=== PATIENT | female | born 1960 | race Caucasian/White ===

== ENCOUNTER 2017-01-09 21:28 | Observation (INO) | payer OTHER ==
--- NOTE | 2017-01-09 21:32 | DR.GENAD ---
HPI - HPI Comment HPI Comment: PATIENT HAVE HISTORY OF CAD WITH PREVIOUS CARDIAC STENTS. TOOK ASPRIN AND EFFIENT TODAY. TOOK 3 S/L NITROGLYCERIN TONIGHT WITHOUT RELIEF OF CHEST PAIN. - Complaint/Symptoms Chief Complaint Doctors Comments: CHEST PAIN - Nurses notes reviewed Nurses Notes Review: Yes - Source History Provided: Patient, Significant Other - Mode of Arrival Mode of Arrival: Ambulatory - Timing Came on: Suddenly - Duration Duration: Constant Duration: Hours - Severity Severity: Moderate PMH - PMH Past Medical History: Coronary Artery Disease, Diabetes, Hypertension Past Medical History Comment: CARDIAC STENT PLACEMENT. ROS - Review of Systems Constitutional: Weakness, Fatigue. negative: Chills, Fever Eyes: No Symptoms Reported. negative: Eye Pain, Discharge ENTM: No Symptoms Reported. negative: Ear Pain, Nose Discharge, Nose Congestion , Throat Pain Respiratoy: Non-Productive Cough, Short of Breath. negative: Productive Cough, Wheezing, Hemoptysis Cardiovascular: Chest Pain, Palpitations. negative: Syncope Gastrointestinal/Abdominal: Nausea. negative: Abdominal Pain, Constipation, Diarrhea, Vomiting Genitourinary: No Symptoms Reported. negative: Dysuria, Frequency, Hematuria Neurological: Weakness, Dizziness. negative: Headache Musculoskeletal: Muscle Pain Integumentary: No Symptoms Reported Hematologic/Lymphatic: No Symptoms Reported Endocrine: No Symptoms Reported All Other Systems: Reviewed and Negative PE - Vital Signs Vitals: Temperature 99.1 F Pulse Rate 99 Respiratory Rate 18 Blood Pressure 160/75 O2 Sat by Pulse Oximetry 98 - General Limitations: No Limitations General Appearance: Alert - Head Head Exam: Normal Inspection - Eyes Eye exam: Normal Appearance - ENT ENT Exam: Normal External Ear Exam External Ear Exam: Normal External Inspection TM/Canal Exam: Bilateral Normal Nose Exam: Normal Nose Exam Mouth Exam: Normal Inspection Throat Exam: Normal Inspection - Neck Neck Exam: Normal Inspection - Chest Chest Inspection: Symmetric Chest Wall Rise - Respiratory Respiratory Exam: Normal Lung Sounds Bilat Respiratory Exam: Bilateral Clear to Auscultation - Cardiovascular Cardiovascular Exam: Regular Rate, Normal Rhythm, Normal Heart Sounds - Abdominal Exam Abdominal Exam: Normal Bowel Sounds, Soft. negative: Tenderness - Extremities Extremities Exam: Normal Inspection - Back Back Exam: Normal Inspection - Neurologic Neurological Exam: Alert, Oriented X3 - Psychiatric Psychiatric Exam: Anxious - Skin Skin Exam: Normal Color MDM - Additional Information Additional Information Obtained From: Family - Differential Diagnosis Differential Diagnosis: CHEST PAIN, CAD, HYPERGLYCEMIA, DM Course - Treatment Treatment: SEE ORDERS - Reevaluation 1st: Improved (PAIN IMPROVE [place] PAIN MED IN ED.) - Consultation Consultation Comments: DISCUSS PATIENT WITH BOX TURNER [employer]URF SALES PERSON FOR PATIENT. THE WILL SEE HER SCHEDULE FOR WEDNESDAY THIS WEEK. DISCUSS WITH DR. ACEVEDO BOX TURNER AT OUR FACILITY. HE WILL ADMIT TO RULE PR. - Education/Counseling Education/Counseling: Patient, Education Educated On: Treatment, Diagnosis ROR - Labs Reviewed Laboratory Results Reviewed?: Yes Result Diagrams: 01/09/17 21:30 01/10/17 00:24 Laboratory: WBC 2.9 X10^3/uL (3.6-10.0) L 01/09/17 21: RBC 3.80 X10^6/uL (3.5-5.4) 01/09/17 21: Hgb 12.2 g/dL (12.0-16.0) 01/09/17: Hct 36.4 % (36.0-47.0) 01/09/17: MCV 95.9 fL (80.0-100.0) 01/09/17 21: MCH 32.1 pg (27.0-34.0) 01/09/17: MCHC 33.5 g/dL (33.0-35.0) 01/09/17 21: RDW 15.9 % (11.6-16.5) 01/09/17: Plt Count 82 X10^3/uL (150.0-450.0) L 01/09/17: MPV 8.6 fL (7.4-11.0) 01/09/17: Neut % 58.7 % (42.0-75.0) 01/09/17 21: Lymph % 31.5 % (21.0-51.0) 01/09/17: [place] % 7.4 % (0.0-13.0) 01/09/17: Eos % 1.9 % (0.9-2.9) 01/09/17 21: Baso % 0.5 % (0.2-1.0) 01/09/17: Neut # 1.7 x10^3/uL (2.2-4.8) L 01/09/17 21:30 Lymph # 0.9 X10^3/uL (1.3-2.9) L 01/09/17 21:30 [place] # 0.2 x10^3/uL (0.3-0.8) L 01/09/17 21:30 Eos # 0.1 x10^3/uL (0.0-0.2) 01/09/17 21:30 Baso # 0.0 X10^3/uL (0.0-0.1) 01/09/17 21:30 Absolute Nucleated RBC 0.1 /100WBC 01/09/17 21:30 Sodium 142 mmol/L (136-145) 01/09/17 21:30 Corrected Sodium 147 mmol/L (136-145) H 01/09/17 21:30 Potassium 2.8 mmol/L (3.5-5.1) L* 01/09/17 21: Chloride 103 mmol/L (98-107) 01/09/17 21: Carbon Dioxide 26.1 mmol/L (21-32) 01/09/17 21:30 BUN 10 mg/dL (7-18) 01/09/17 21:30 Creatinine 0.98 mg/dL (0.55-1.02) 01/09/17 21:30 Est GFR (MDRD) Af Amer > 60 (>60) 01/09/17 21:30 Est GFR (MDRD) Non-Af > 60 (>60) 01/09/17 21:30 Glucose 313 mg/dL (65-99) H 01/09/17 21: Calcium 8.9 mg/dL (8.5-10.1) 01/09/17 21:30 Corrected Calcium TNP 01/09/17 21:30 Total Bilirubin 0.60 mg/dL (0.2-1.0) 01/09/17 21:30 AST 65 Units/L (15-37) H 01/09/17 21:30 ALT 55 Units/L (12-78) 01/09/17 21:30 Alkaline Phosphatase 246 Units/L (46-116) H 01/09/17 21:30 Creatine Kinase 159 Units/L (26-192) 01/09/17 21:30 CK-MB (CK-2) 2.2 ng/mL (0-4.0) 01/09/17 21:30 CK/CKMB % Calc 1.4 % (<4) 01/09/17 21:30 Troponin I 0.04 ng/mL (0-1.5) 01/09/17 21:30 B-Natriuretic Peptide 147 pg/mL (0-79) H 01/09/17 21:30 Total Protein 7.5 g/dL (6.4-8.2) 01/09/17 21:30 Albumin 3.4 g/dL (3.4-5.0) 01/09/17 21:30 Globulin 4.1 g/dL (2.5-4.5) 01/09/17 21:30 Albumin/Globulin Ratio 0.8 Ratio (1.1-2.1) L 01/09/17 21:30 Specimen Type Clean catch urine 01/09/17 22:21 Urine Color Yellow (YELLOW) 01/09/17 22:21 Urine Appearance Clear (CLEAR) 01/09/17 22:21 Urine pH 7.0 (5.0 - 8.0) 01/09/17 22:21 Ur Specific [place] 1.005 (1.000-1.030) 01/09/17 22:21 Urine Protein Negative (NEGATIVE) 01/09/17 22:21 Urine Glucose (UA) 4+ (NEGATIVE) 01/09/17 22:21 Urine Ketones Negative (NEGATIVE) 01/09/17 22:21 Urine Occult Blood Negative (NEGATIVE) 01/09/17 22:21 Urine Nitrite Negative (NEGATIVE) 01/09/17 22:21 Urine Bilirubin Negative (NEGATIVE) 01/09/17 22:21 Urine Urobilinogen Normal (NORMAL) 01/09/17 22:21 Ur Leukocyte Esterase Negative (NEGATIVE) 01/09/17 22:21 Urine RBC 0-3 /HPF (NEGATIVE) 01/09/17 22:21 Urine WBC 0-3 /HPF (NEGATIVE) 01/09/17 22:21 Ur Squamous Epith Cells Few /HPF (NEGATIVE) 01/09/17 22:21 Urine Bacteria Negative /HPF (NEGATIVE) 01/09/17 22:21 Ur Culture Indicated? No/not indicated 01/09/17 22:21 Acetone, Semi-Quant Negative (NEGATIVE) 01/09/17 22:37 - XRAY XRAY Interpreted by: Radiologist XRAY Findings: REPORT DISCUSS WITH PATIENT. - EKG Rhythm: NSR (EKG NOTED) - Diagnosis Discharge Problem: Chest pain Qualifiers: Chest pain type: precordial pain Qualified Code(s): R07.2 - Precordial pain - Discharge Plan Disposition: 09 ADMITTED INPATIENT Condition: Stable - Follow ups/Referrals - Instructions
[2017-01-09] MEDS ORDERED: ZOFRAN INJ 4 MG VIAL IVP ONE (21:35)
[2017-01-09] MEDS ORDERED: MORPHINE SULFATE INJ 4 MG IVP ONE (21:35)
[2017-01-09] MEDS ORDERED: ZOFRAN INJ 4 MG VIAL ONE (21:39)
[2017-01-09] MEDS ORDERED: MORPHINE SULFATE INJ 4 MG ONE (21:39)
[2017-01-09] MEDS ORDERED: ASPIRIN ONE (21:45)
--- NOTE | 2017-01-09 21:54 | RAD ---
AP Chest Indication: Chest pain Comparison: None available Findings: The trachea is midline. The cardiac silhouette is unremarkable. The lungs are clear without focal infiltrate or effusion. The bony thorax is unremarkable. IMPRESSION: 1. No acute cardiopulmonary abnormality. Reported By:
[2017-01-09 22:00] LABS: BASOPHILS % (AUTO) 0.5 % (0.2-1.0); EOSINOPHILS # (AUTO) 0.1 x10^3/uL (0.0-0.2); EOSINOPHILS % (AUTO) 1.9 % (0.9-2.9); HEMATOCRIT 36.4 % (36.0-47.0); HEMOGLOBIN 12.2 g/dL (12.0-16.0); LYMPHOCYTES # (AUTO) 0.9 X10^3/uL (1.3-2.9); LYMPHOCYTES % (AUTO) 31.5 % (21.0-51.0); MEAN CORPUSCULAR HEMOGLOBIN 32.1 pg (27.0-34.0); MEAN CORPUSCULAR HGB CONC 33.5 g/dL (33.0-35.0); MEAN CORPUSCULAR VOLUME 95.9 fL (80.0-100.0); MEAN PLATELET VOLUME 8.6 fL (7.4-11.0); MONOCYTES # (AUTO) 0.2 x10^3/uL (0.3-0.8); MONOCYTES % (AUTO) 7.4 % (0.0-13.0); NEUTROPHILS # (AUTO) 1.7 x10^3/uL (2.2-4.8); NEUTROPHILS % (AUTO) 58.7 % (42.0-75.0); PLATELET COUNT 82 X10^3/uL (150.0-450.0); RED CELL DISTRIBUTION WIDTH 15.9 % (11.6-16.5); WHITE BLOOD COUNT 2.9 X10^3/uL (3.6-10.0)
[2017-01-09 22:07] LABS: ALANINE AMINOTRANSFERASE 55 Units/L (12-78); ALBUMIN 3.4 g/dL (3.4-5.0); ALKALINE PHOSPHATASE 246 Units/L (46-116); ASPARTATE AMINO TRANSFERASE 65 Units/L (15-37); BLOOD UREA NITROGEN 10 mg/dL (7-18); CALCIUM 8.9 mg/dL (8.5-10.1); CARBON DIOXIDE 26.1 mmol/L (21-32); CHLORIDE 103 mmol/L (98-107); CKMB % 1.4 % (<4); COR NA(FOR HYPERGLY) 147 mmol/L (136-145); CREATINE KINASE 159 Units/L (26-192); CREATINE KINASE MB 2.2 ng/mL (0-4.0); CREATININE 0.98 mg/dL (0.55-1.02); GLUCOSE 313 mg/dL (65-99); SODIUM 142 mmol/L (136-145); TOTAL PROTEIN 7.5 g/dL (6.4-8.2); TROPONIN I 0.04 ng/mL (0-1.5); eGFR BLACK RACES > 60 (>60); eGFR NON BLACK RACES > 60 (>60)
[2017-01-09] MEDS ORDERED: POTASSIUM CHLORIDE LIQ 20 MEQ UDC PO ONE (22:09)
[2017-01-09] MEDS ORDERED: POTASSIUM CHLORIDE LIQ 20 MEQ UDC ONE (22:13)
[2017-01-09 22:29] LABS: BILIRUBIN,URINE NEGATIVE (NEGATIVE); BLOOD/HEMOGLOBIN,URINE NEGATIVE (NEGATIVE); GLUCOSE, URINE 4+ (NEGATIVE); KETONES,URINE NEGATIVE (NEGATIVE); LEUKOCYTE ESTERASE ,URINE NEGATIVE (NEGATIVE); NITRITES,URINE NEGATIVE (NEGATIVE); PROTEIN,URINE NEGATIVE (NEGATIVE); UROBILINOGEN,URINE NORMAL (NORMAL)
[2017-01-09 22:49] LABS: APPEARANCE,URINE CLEAR (CLEAR); BACTERIA,URINE NEGATIVE /HPF (NEGATIVE); COLOR,URINE YELLOW (YELLOW); RBC,URINE 0-3 /HPF (NEGATIVE); SQUAMOUS EPITHELIAL CELL,UR FEW /HPF (NEGATIVE)
[2017-01-10] MEDS ORDERED: MORPHINE SULFATE INJ 2 MG IVP PRN
[2017-01-10] MEDS ORDERED: NITROSTAT SL PRN
[2017-01-10 01:18] VITALS: BMI 32.9
[2017-01-10 05:56] LABS: ALANINE AMINOTRANSFERASE 44 Units/L (12-78); ALBUMIN 2.7 g/dL (3.4-5.0); ALKALINE PHOSPHATASE 198 Units/L (46-116); ASPARTATE AMINO TRANSFERASE 46 Units/L (15-37); BLOOD UREA NITROGEN 7 mg/dL (7-18); CALCIUM 8.4 mg/dL (8.5-10.1); CARBON DIOXIDE 27.7 mmol/L (21-32); CHLORIDE 109 mmol/L (98-107); CKMB % 1.6 % (<4); COR CA(FOR HYPOALB) 9.4 mg/dL (8.5-10.1); COR NA(FOR HYPERGLY) 148 mmol/L (136-145); CREATINE KINASE 97 Units/L (26-192); CREATINE KINASE MB 1.5 ng/mL (0-4.0); CREATININE 0.68 mg/dL (0.55-1.02); GLUCOSE 242 mg/dL (65-99); SODIUM 145 mmol/L (136-145); TOTAL PROTEIN 6.2 g/dL (6.4-8.2); TROPONIN I 0.05 ng/mL (0-1.5); eGFR BLACK RACES > 60 (>60); eGFR NON BLACK RACES > 60 (>60)
[2017-01-10 06:01] LABS: BASOPHILS % (AUTO) 0.5 % (0.2-1.0); EOSINOPHILS % (AUTO) 2.7 % (0.9-2.9); HEMATOCRIT 31.3 % (36.0-47.0); HEMOGLOBIN 10.5 g/dL (12.0-16.0); LYMPHOCYTES # (AUTO) 0.6 X10^3/uL (1.3-2.9); LYMPHOCYTES % (AUTO) 41.7 % (21.0-51.0); MEAN CORPUSCULAR HGB CONC 33.4 g/dL (33.0-35.0); MEAN CORPUSCULAR VOLUME 95.9 fL (80.0-100.0); MEAN PLATELET VOLUME 8.2 fL (7.4-11.0); MONOCYTES # (AUTO) 0.1 x10^3/uL (0.3-0.8); MONOCYTES % (AUTO) 9.1 % (0.0-13.0); NEUTROPHILS # (AUTO) 0.7 x10^3/uL (2.2-4.8); PLATELET COUNT 63 X10^3/uL (150.0-450.0); RED BLOOD COUNT 3.27 X10^6/uL (3.5-5.4); RED CELL DISTRIBUTION WIDTH 15.5 % (11.6-16.5)
[2017-01-10 06:05] LABS: WHITE BLOOD COUNT 1.5 X10^3/uL (3.6-10.0)
[2017-01-10] MEDS ORDERED: K-RIDER 10 MEQ/NS 100 ML 10 MEQ/100 ML BAG IV PRN (06:07)
[2017-01-10] MEDS ORDERED: K-LYTE EFFERVESCENT PO PRN (06:07)
[2017-01-10] MEDS ORDERED: K-DUR TAB 20 MEQ PO PRN (06:07)
[2017-01-10] MEDS ORDERED: POTASSIUM CHLORIDE LIQ 20 MEQ UDC PO PRN (06:07)
[2017-01-10 06:31] LABS: PLATELET MORPHOLOGY COMMENT NORMAL (NORMAL)
[2017-01-10] MEDS: HUMULIN R SC PRN ×4 (06:37→20:40)
[2017-01-10] MEDS ORDERED: MAGNESIUM SULFATE 1 GM/100 mL PREMIX 1 GM/100 ML BAG IV ONE (07:38)
[2017-01-10] MEDS ORDERED: NS 250 ML IV 250 ML IV ONE (07:53)
[2017-01-10] MEDS: NS 250 ML IV 250 ML IV SCH ×2 (07:58→22:37)
[2017-01-10] MEDS: ASPIRIN EC 81 MG PO SCH (08:55)
[2017-01-10 11:00] LABS: CKMB % 1.4 % (<4); CREATINE KINASE MB 1.4 ng/mL (0-4.0); TROPONIN I 0.03 ng/mL (0-1.5)
[2017-01-10] MEDS ORDERED: HUMALOG SC PRN (12:29)
[2017-01-10] MEDS ORDERED: ULTRAM PO PRN (12:29)
[2017-01-10] MEDS ORDERED: POTASSIUM CHLORIDE PO SCH (12:30)
[2017-01-10] MEDS ORDERED: [UNRECOGNIZED DRUG - OTHER] PO SCH (12:30)
[2017-01-10] MEDS ORDERED: ASPIRIN EC 81 MG PO SCH (13:00)
[2017-01-10] MEDS ORDERED: PATIENT'S HOME MEDICATION PO SCH (13:00)
[2017-01-10] MEDS: NAMENDA TAB 10 MG PO SCH ×2 (16:06→20:37)
[2017-01-10] MEDS: [UNRECOGNIZED DRUG - OTHER] PO SCH (16:06)
[2017-01-10] MEDS: LOPRESSOR TAB 25 MG PO SCH ×2 (16:31→20:36)
[2017-01-10] MEDS: PROTONIX TAB 40 MG PO SCH (16:31)
[2017-01-10] MEDS ORDERED: MAALOX or MYLANTA PO PRN (20:08)
[2017-01-10] MEDS ORDERED: LEVEMIR SC SCH (21:00)
[2017-01-10] MEDS ORDERED: CELEXA PO SCH (21:00)
[2017-01-11] MEDS ORDERED: GLUCOTROL PO SCH (07:00)
[2017-01-11] MEDS: LOPRESSOR TAB 25 MG PO SCH ×2 (09:10→09:16)
[2017-01-11] MEDS: K-DUR TAB 20 MEQ PO SCH ×3 (09:11→16:30)
[2017-01-11] MEDS: ASPIRIN EC 81 MG PO SCH ×3 (09:11→16:29)
[2017-01-11] MEDS: NAMENDA TAB 10 MG PO SCH ×2 (09:11→09:16)
[2017-01-11] MEDS: PROTONIX TAB 40 MG PO SCH ×3 (09:12→16:30)
[2017-01-11] MEDS: LASIX PO SCH ×3 (09:12→16:30)
[2017-01-11] MEDS: [UNRECOGNIZED DRUG - OTHER] PO SCH (09:13)
--- NOTE | 2017-01-11 11:31 | DR.H&P ---
H&P - History & Physical for Day of: H&P Date: 01/09/17 - Chief Complaint Chief Complaint: Chest pain - Allergies Allergies/Adverse Reactions: Allergies Allergy/AdvReac Type Severity Reaction Status Date / Time Codeine Allergy Verified 01/09/17 21:34 - History of Present Illness History of Present Illness: The patient is a 56-year-old white female who presented [facility] emergency room complaining of substernal chest pain. The patient has a previous history of coronary artery disease and history of previous multiple coronary artery stents. Patient apparently took 3 sublingual nitroglycerin tablets at home with no relief in her chest pain subsequently presented for further evaluation. The patient's initial EKG revealed normal sinus rhythm with nonspecific ST-T wave changes. The patient's initial cardiac enzymes to be within normal limits. The patient was subsequently admitted for further workup. - Past Medical History Past Medical History: Coronary Artery Disease, Diabetes, Hypertension - Past Surgical History Surgical History: Angioplasty/Stents, [employer] Surgery - Family History Family Medical History: Diabetes Mellitus, Coronary Artery Disease, Hypertension - Social History Does patient currently use any type of tobacco product: Yes Have you used tobacco products in the last 12 months: Yes Type of Tobacco Use: Cigars How many years tobacco product used: 40 Does any household member use tobacco: Yes Alcohol Use: Occasionally Drug Use: None - Medications Home Medications: Aspirin EC [ASPIRIN EC 81 MG *] 81 mg PO DAILY 01/10/17 [History Confirmed 01/10] Citalopram 20 mg Tab [Celexa] 20 mg PO HS 01/10/17 [History Confirmed 01/10/17] Furosemide [Lasix] 40 mg PO QAM 01/10/17 [History Confirmed 01/10/17] Glipizide [Glipizide 10 mg] 10 mg PO DAILY 01/10/17 [History Confirmed 01/10/17] Insulin Detemir (Levemir) [Levemir] 25 units SC HS 01/10/17 [History Confirmed 01/10/17] Insulin Lispro (Humalog) [Humalog] 1 unit SC TIDWM PRN 01/10/17 [History Confirmed 01/10/17] Memantine HCl [Namenda Tab 10 mg] 10 mg PO BID 01/10/17 [History Confirmed 01/10] Misc Home Med [Patient's Home Medication] 1 ea PO BID 01/10/17 [History Confirmed 01/10/17] Pantoprazole Sodium 40 mg [Protonix Tab 40 mg] 40 mg PO DAILY 01/10/17 [History Confirmed 01/10/17] Potassium Chloride [K-Tab] 40 meq PO DAILY 01/10/17 [History Confirmed 01/10/17] Prasugrel HCl [Effient] 10 mg PO DAILY 01/10/17 [History Confirmed 01/10/17] Tramadol HCl [ULTRAM 50 MG *] 100 mg PO Q8H PRN 01/10/17 [History Confirmed ] - Review of Systems Constitutional: No Symptoms Reported Eyes: No Symptoms Reported ENT: No Symptoms Reported Respiratory: No Symptoms Reported Cardiovascular: Chest Pain, See HPI Gastrointestinal: No Symptoms Reported Genitourinary: No Symptoms Reported Musculoskeletal: No Symptoms Reported Skin: No Symptoms Reported Neurological: No Symptoms Reported - Physical Exam Vital Signs: Temperature 98.0 F Pulse Rate [Left Brachial] 54 Pulse Rate [Right Radial] 59 Respiratory Rate 18 Blood Pressure [Left Arm] 116/59 O2 Sat by Pulse Oximetry 97 Oriented: Normal Eyes: Normal Ear: Normal Nose: Normal Throat: Normal Respiratory: Clear Throughout Cardiovascular: Normal : Normal Auscultation: Bowel Sounds: Normal Tenderness: Normal Skin: Normal Musculoskeletal: Normal Psychiatric: Normal Mood Description: Calm Affect: Angry Speech Pattern: Clear - Assessment/Plan (1) Chest pain Qualifiers: Chest pain type: precordial pain Ischemic chest pain type: I Qualified Code(s): R07.2 - Precordial pain Status: Acute Plan: 1. Admit for further workup. 2. Telemetry. 3. O2 2 L/m per nasal cannula. 4. Chest x-ray. 5. UA C&S. 6. CMP and CBC. 7. Serial EKGs. 8. Serial cardiac enzymes. 9. Continue home medications. 10. For further orders to chart (2) Coronary artery disease Qualifiers: Coronary Disease-Associated Artery/Lesion type: C [place] vs. transplanted heart: N Associated angina: A Status: Chronic Plan: as above (3) Leukopenia Qualifiers: Leukopenia type: L Neutropenia type: N Status: Acute Plan: Repeat CBC in am (4) Thrombocytopenia Status: Acute Plan: Repeat CBC in am
[2017-01-11 11:33] LABS: BASOPHILS % (AUTO) 0.6 % (0.2-1.0); EOSINOPHILS % (AUTO) 2.5 % (0.9-2.9); HEMATOCRIT 31.8 % (36.0-47.0); HEMOGLOBIN 10.7 g/dL (12.0-16.0); LYMPHOCYTES # (AUTO) 0.7 X10^3/uL (1.3-2.9); MEAN CORPUSCULAR HEMOGLOBIN 32.1 pg (27.0-34.0); MEAN CORPUSCULAR HGB CONC 33.5 g/dL (33.0-35.0); MEAN CORPUSCULAR VOLUME 95.6 fL (80.0-100.0); MEAN PLATELET VOLUME 8.7 fL (7.4-11.0); MONOCYTES # (AUTO) 0.1 x10^3/uL (0.3-0.8); MONOCYTES % (AUTO) 8.1 % (0.0-13.0); NEUTROPHILS # (AUTO) 0.9 x10^3/uL (2.2-4.8); NEUTROPHILS % (AUTO) 49.8 % (42.0-75.0); PLATELET COUNT 62 X10^3/uL (150.0-450.0); RED BLOOD COUNT 3.33 X10^6/uL (3.5-5.4); RED CELL DISTRIBUTION WIDTH 15.5 % (11.6-16.5)
[2017-01-11 11:35] LABS: ALANINE AMINOTRANSFERASE 53 Units/L (12-78); ALBUMIN 2.6 g/dL (3.4-5.0); ALKALINE PHOSPHATASE 212 Units/L (46-116); ASPARTATE AMINO TRANSFERASE 61 Units/L (15-37); BLOOD UREA NITROGEN 8 mg/dL (7-18); CALCIUM 8.3 mg/dL (8.5-10.1); CHLORIDE 108 mmol/L (98-107); COR CA(FOR HYPOALB) 9.4 mg/dL (8.5-10.1); COR NA(FOR HYPERGLY) 143 mmol/L (136-145); CREATININE 0.73 mg/dL (0.55-1.02); GLUCOSE 173 mg/dL (65-99); MAGNESIUM 1.7 mg/dL (1.7-2.9); SODIUM 141 mmol/L (136-145); TOTAL PROTEIN 6.2 g/dL (6.4-8.2); eGFR BLACK RACES > 60 (>60); eGFR NON BLACK RACES > 60 (>60)
[2017-01-11 11:37] LABS: WHITE BLOOD COUNT 1.8 X10^3/uL (3.6-10.0)
--- NOTE | 2017-01-11 11:40 | PCM.PROG ---
Progress Note - Progress Note for Day of Date: 01/10/17 - Subjective Subjective: The patient is 56-year-old white female admitted to [facility] secondary to intermittent episodes of chest pain. Patient has a pre-existing history of coronary artery disease and states that she was previously scheduled for outpatient cardiac catheter and [facility] on Wednesday, January 11, 2017. Patient denies any chest pain at the present time. Patient remained in normal sinus rhythm. Serial cardiac enzymes are negative. - Past Medical Family Social History Past Med/Fam/Surg Hx: No changes since H&P Allergies: Allergies Codeine Allergy (Verified 01/09/17 21:34) - Review of Systems ROS: No change since H&P - Vital Signs and I&O's Vital Signs: Temperature 98.0 F Pulse Rate [Left Brachial] 54 Pulse Rate [Right Radial] 59 Respiratory Rate 18 Blood Pressure [Left Arm] 116/59 O2 Sat by Pulse Oximetry 97 Intake and Output: Intake & Output 01/08/17 01/09/17 01/10/17 01/11/17 11:59 11:59 11:59 11:59 Intake Total 220 1680 Balance 220 1680 - Physical Exam Oriented: Normal Eyes: Normal Ear: Normal Nose: Normal Throat: Normal Respiratory: Normal Cardiovascular: Normal : Normal Auscultation: Bowel Sounds: Normal Tenderness: Normal Skin: Normal Musculoskeletal: Normal Psychiatric: Normal Mood Description: Calm Affect: Angry Speech Pattern: Clear - Laboratory and Diagnostics Result Diagrams: 01/11/17 11:10 01/11/17 11:10 Labs: Laboratory WBC 1.5 X10^3/uL (3.6-10.0) L* 01/10/17 05:20 RBC 3.27 X10^6/uL (3.5-5.4) L 01/10/17 05:20 Hgb 10.5 g/dL (12.0-16.0) L 01/10/17 05:20 Hct 31.3 % (36.0-47.0) L 01/10/17 05:20 MCV 95.9 fL (80.0-100.0) 01/10/17 05:20 MCH 32.0 pg (27.0-34.0) 01/10/17 05:20 MCHC 33.4 g/dL (33.0-35.0) 01/10/17 05:20 RDW 15.5 % (11.6-16.5) 01/10/17 05:20 Plt Count 63 X10^3/uL (150.0-450.0) L 01/10/17 05:20 Plt Count Comment Decreased (ADEQUATE) A 01/10/17 05:20 MPV 8.2 fL (7.4-11.0) 01/10/17 05:20 Neut % 46.0 % (42.0-75.0) 01/10/17 05:20 Lymph % 41.7 % (21.0-51.0) 01/10/17 05:20 [place] % 9.1 % (0.0-13.0) 01/10/17 05:20 Eos % 2.7 % (0.9-2.9) 01/10/17 05:20 Baso % 0.5 % (0.2-1.0) 01/10/17 05:20 Neut # 0.7 x10^3/uL (2.2-4.8) L 01/10/17 05:20 Lymph # 0.6 X10^3/uL (1.3-2.9) L 01/10/17 05:20 [place] # 0.1 x10^3/uL (0.3-0.8) L 01/10/17 05:20 Eos # 0.0 x10^3/uL (0.0-0.2) 01/10/17 05:20 Baso # 0.0 X10^3/uL (0.0-0.1) 01/10/17 05:20 Absolute Nucleated RBC 0.1 /100WBC 01/10/17 05:20 Total Counted 50 01/10/17 05:20 Neutrophils % (Manual) 40 % (39-76) 01/10/17 05:20 Lymphocytes % (Manual) 50 % (13-43) H 01/10/17 05:20 Monocytes % (Manual) 8 % (4-9) 01/10/17 05:20 Eosinophils % (Manual) 2 % (0-6) 01/10/17 05:20 Plt Morphology Comment Normal (NORMAL) 01/10/17 05:20 RBC Morphology Normal (NORMAL) 01/10/17 05:20 Sodium 145 mmol/L (136-145) 01/10/17 05:20 Corrected Sodium 148 mmol/L (136-145) H 01/10/17 05:20 Potassium 3.7 mmol/L (3.5-5.1) 01/10/17 08:45 Chloride 109 mmol/L (98-107) H 01/10/17 05:20 Carbon Dioxide 27.7 mmol/L (21-32) 01/10/17 05:20 BUN 7 mg/dL (7-18) 01/10/17 05:20 Creatinine 0.68 mg/dL (0.55-1.02) 01/10/17 05:20 Est GFR (MDRD) Af Amer > 60 (>60) 01/10/17 05:20 Est GFR (MDRD) Non-Af > 60 (>60) 01/10/17 05:20 Glucose 242 mg/dL (65-99) H 01/10/17 05:20 Calcium 8.4 mg/dL (8.5-10.1) L 01/10/17 05:20 Corrected Calcium 9.4 mg/dL (8.5-10.1) 01/10/17 05:20 Magnesium 1.5 mg/dL (1.7-2.9) L 01/10/17 05:20 Total Bilirubin 0.40 mg/dL (0.2-1.0) 01/10/17 05:20 AST 46 Units/L (15-37) H 01/10/17 05:20 ALT 44 Units/L (12-78) 01/10/17 05:20 Alkaline Phosphatase 198 Units/L (46-116) H 01/10/17 05:20 Creatine Kinase 100 Units/L (26-192) 01/10/17 09:45 CK-MB (CK-2) 1.4 ng/mL (0-4.0) 01/10/17 09:45 CK/CKMB % Calc 1.4 % (<4) 01/10/17 09:45 Troponin I 0.03 ng/mL (0-1.5) 01/10/17 09:45 B-Natriuretic Peptide 147 pg/mL (0-79) H 01/09/17 21:30 Total Protein 6.2 g/dL (6.4-8.2) L 01/10/17 05:20 Albumin 2.7 g/dL (3.4-5.0) L 01/10/17 05:20 Globulin 3.5 g/dL (2.5-4.5) 01/10/17 05:20 Albumin/Globulin Ratio 0.8 Ratio (1.1-2.1) L 01/10/17 05:20 Specimen Type Clean catch urine 01/09/17 22:21 Urine Color Yellow (YELLOW) 01/09/17 22:21 Urine Appearance Clear (CLEAR) 01/09/17 22:21 Urine pH 7.0 (5.0 - 8.0) 01/09/17 22:21 Ur Specific [place] 1.005 (1.000-1.030) 01/09/17 22:21 Urine Protein Negative (NEGATIVE) 01/09/17 22:21 Urine Glucose (UA) 4+ (NEGATIVE) 01/09/17 22:21 Urine Ketones Negative (NEGATIVE) 01/09/17 22:21 Urine Occult Blood Negative (NEGATIVE) 01/09/17 22:21 Urine Nitrite Negative (NEGATIVE) 01/09/17 22:21 Urine Bilirubin Negative (NEGATIVE) 01/09/17 22:21 Urine Urobilinogen Normal (NORMAL) 01/09/17 22:21 Ur Leukocyte Esterase Negative (NEGATIVE) 01/09/17 22:21 Urine RBC 0-3 /HPF (NEGATIVE) 01/09/17 22:21 Urine WBC 0-3 /HPF (NEGATIVE) 01/09/17 22:21 Ur Squamous Epith Cells Few /HPF (NEGATIVE) 01/09/17 22:21 Urine Bacteria Negative /HPF (NEGATIVE) 01/09/17 22:21 Ur Culture Indicated? No/not indicated 01/09/17 22:21 Acetone, Semi-Quant Negative (NEGATIVE) 01/09/17 22:37
[2017-01-11 11:45] LABS: PLATELET MORPHOLOGY COMMENT NORMAL (NORMAL)
[2017-01-11] MEDS ORDERED: SNACK - Diabetic Appropriate PO SCH (20:00)
[2017-01-11 20:20] VITALS: BP 133/64
== END 2017-01-11 20:15 | disposition short-term general hospital (02) | DRG 313 ==
LOC: ER 21:28 → MED/SURG 23:57
PROVIDERS: ADMIT Internal Medicine; ATTEND Internal Medicine
DX: R07.2 Precordial pain (principal); D72.818 Other decreased white blood cell count; D64.89 Other specified anemias; E11.65 Type 2 diabetes mellitus with hyperglycemia; R74.8 Abnormal levels of other serum enzymes; I25.10 Atherosclerotic heart disease of native coronary artery without angina pectoris; I10 Essential (primary) hypertension; D69.6 Thrombocytopenia, unspecified; D61.818 Other pancytopenia
CPT/HCPCS: 36415; 71010; 80053; 81001; 82009; 82550; 82553; 82607; 82728; 82746; 83540; 83550; 83735; 83880; 84132; 84484; 85025; 93005; 93010; 94760; 96365; 96374; 96375; 99284; A4216; A4222; 1956; G0378; J1815; J2270; J2405

== ENCOUNTER 2017-06-17 19:04 | Emergency (ER) | payer SELFPAY ==
[2017-06-17 19:12] VITALS: BP 131/69; BMI 30.2
--- NOTE | 2017-06-17 19:37 | DR.GENAD ---
HPI - PCP Primary Care Physician: MICHAEL PANTOJA - Complaint/Symptoms Chief Complaint:: "I HAVE BEEN HAVING DIARRHEA FOR OVER A WEEK , ABD PAIN, AND NOW BLOOD IN MY RETUM.". DENIES ANY N/V, HAS NOT CONTACTED PCP. 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 Surgery - Family History History of Family Medical Conditions: Yes Family Medical History: Diabetes Mellitus, Coronary Artery Disease, Hypertension - Social History Type of Tobacco Use: Cigarettes Alcohol Use: Occasionally Do you use any recreational Drugs:: No Lives With: Significant Other Lives Where: Home - infectious screening Have you traveled outside the country in the last 6 months?: No Isolation: Standard PE - Vital Signs Vitals: Temperature 98.0 F Pulse Rate 97 Respiratory Rate 16 Blood Pressure [Left Arm] 133/64 Blood Pressure 131/69 O2 Sat by Pulse Oximetry 99 - General Limitations: No Limitations General Appearance: Alert, In No Apparent Distress - Head Head Exam: Normal Inspection, Atraumatic - Eyes Eye exam: Normal Appearance, PERRL, EOMI - ENT ENT Exam: Normal Exam External Ear Exam: Normal External Inspection TM/Canal Exam: Bilateral Normal Nose Exam: Normal Nose Exam, Sinus Tenderness Mouth Exam: Normal Inspection Throat Exam: Normal Inspection - Neck Neck Exam: Normal Inspection - Chest Chest Inspection: Normal Inspection, Symmetric Chest Wall Rise - Respiratory Respiratory Exam: Normal Lung Sounds Bilat Respiratory Exam: Bilateral Clear to Auscultation - Cardiovascular Cardiovascular Exam: Regular Rate - Abdominal Exam Abdominal Exam: Normal Inspection Abdominal Tenderness: negative: RUQ, RLQ, LUQ, LLQ, Epigastrium, Suprapubic, Diffuse, Mild, Moderate, Severe, Other - Extremities Extremities Exam: Normal Inspection, Full ROM - Back Back Exam: Normal Inspection - Neurologic Neurological Exam: Alert, Oriented X3, CN II-XII Intact - Psychiatric Psychiatric Exam: Normal Affect - Skin Skin Exam: Warm, Dry, Intact Course - Reevaluation 1st: Unchanged ROR - Labs Reviewed Laboratory Results Reviewed?: Yes (low potassium) Result Diagrams: 06/17/17 20:02 06/17/17 20:02 Laboratory: WBC 2.3 X10^3/uL (3.6-10.0) L 06/17/17 20: RBC 3.81 X10^6/uL (3.5-5.4) 06/17/17 20:02 Hgb 11.7 g/dL (12.0-16.0) L 06/17/17 20:02 Hct 34.6 % (36.0-47.0) L 06/17/17 20: MCV 90.9 fL (80.0-100.0) 06/17/17 20: MCH 30.8 pg (27.0-34.0) 06/17/17 20: MCHC 33.9 g/dL (33.0-35.0) 06/17/17 20: RDW 16.3 % (11.6-16.5) 06/17/17 20: Plt Count 76 X10^3/uL (150.0-450.0) L 06/17/17 20: Plt Count Comment Adequate (ADEQUATE) 06/17/17 20: MPV 8.4 fL (7.4-11.0) 06/17/17 20: Neut % 60.6 % (42.0-75.0) 06/17/17 20: Lymph % 29.6 % (21.0-51.0) 06/17/17 20: [place] % 6.7 % (0.0-13.0) 06/17/17 20: Eos % 2.6 % (0.9-2.9) 06/17/17 20: Baso % 0.5 % (0.2-1.0) 06/17/17 20:02 Neut # 1.4 x10^3/uL (2.2-4.8) L 06/17/17 20:02 Lymph # 0.7 X10^3/uL (1.3-2.9) L 06/17/17 20: [place] # 0.2 x10^3/uL (0.3-0.8) L 06/17/17 20:02 Eos # 0.1 x10^3/uL (0.0-0.2) 06/17/17 20: Baso # 0.0 X10^3/uL (0.0-0.1) 06/17/17 20:02 Absolute Nucleated RBC 0.1 /100WBC 06/17/17 20:02 Total Counted 100 06/17/17 20:02 Neutrophils % (Manual) 59 % (39-76) 06/17/17 20:02 Band Neutrophils % 1 % (0-10) 06/17/17 20:02 Lymphocytes % (Manual) 36 % (13-43) 06/17/17 20:02 Monocytes % (Manual) 4 % (4-9) 06/17/17 20:02 Plt Morphology Comment Normal (NORMAL) 06/17/17 20:02 RBC Morphology Abnormal (NORMAL) A 06/17/17 20:02 Hypochromasia Slight A 06/17/17 20:02 Sodium 143 mmol/L (136-145) 06/17/17 20:02 Corrected Sodium 145 mmol/L (136-145) 06/17/17 20:02 Potassium 3.1 mmol/L (3.5-5.1) L 06/17/17 20:02 Chloride 107 mmol/L (98-107) 06/17/17 20:02 Carbon Dioxide 31.2 mmol/L (21-32) 06/17/17 20:02 BUN 7 mg/dL (7-18) 06/17/17 20:02 Creatinine 0.94 mg/dL (0.55-1.02) 06/17/17 20:02 Est GFR (MDRD) Af Amer > 60 (>60) 06/17/17 20:02 Est GFR (MDRD) Non-Af > 60 (>60) 06/17/17 20:02 Glucose 199 mg/dL (65-99) H 06/17/17 20:02 Calcium 8.5 mg/dL (8.5-10.1) 06/17/17 20:02 Corrected Calcium 9.1 mg/dL (8.5-10.1) 06/17/17 20:02 Total Bilirubin 0.60 mg/dL (0.2-1.0) 06/17/17 20:02 AST 116 Units/L (15-37) H 06/17/17 20:02 ALT 73 Units/L (12-78) 06/17/17 20:02 Alkaline Phosphatase 310 Units/L (46-116) H 06/17/17 20:02 Total Protein 7.6 g/dL (6.4-8.2) 06/17/17 20:02 Albumin 3.3 g/dL (3.4-5.0) L 06/17/17 20:02 Globulin 4.3 g/dL (2.5-4.5) 06/17/17 20:02 Albumin/Globulin Ratio 0.8 Ratio (1.1-2.1) L 06/17/17 20:02 Specimen Type Clean catch urine 06/17/17 20:02 Urine Color Pale yellow (YELLOW) 06/17/17 20:02 Urine Appearance Clear (CLEAR) 06/17/17 20:02 Urine pH 5.0 (5.0 - 8.0) 06/17/17 20:02 Ur Specific [place] 1.010 (1.000-1.030) 06/17/17 20:02 Urine Protein Negative (NEGATIVE) 06/17/17 20:02 Urine Glucose (UA) Negative (NEGATIVE) 06/17/17 20:02 Urine Ketones Negative (NEGATIVE) 06/17/17 20:02 Urine Occult Blood Negative (NEGATIVE) 06/17/17 20:02 Urine Nitrite Negative (NEGATIVE) 06/17/17 20:02 Urine Bilirubin Negative (NEGATIVE) 06/17/17 20:02 Urine Urobilinogen Normal (NORMAL) 06/17/17 20:02 Ur Leukocyte Esterase Negative (NEGATIVE) 06/17/17 20:02 Urine RBC 0-1 /HPF (NEGATIVE) 06/17/17 20:02 Urine WBC 0-1 /HPF (NEGATIVE) 06/17/17 20:02 Ur Squamous Epith Cells Few /HPF (NEGATIVE) 06/17/17 20:02 Urine Bacteria Trace /HPF (NEGATIVE) 06/17/17 20:02 Urine Mucus Few /HPF (NEGATIVE) 06/17/17 20:02 Ur Culture Indicated? No/not indicated 06/17/17 20:02 Stool Description Fob tube 06/17/17 19:45 Stl Occult Blood (IFOB) Positive (NEGATIVE) A 06/17/17 19:45 Stool for White Cells Negative (NEGATIVE) 06/17/17 19:45 - XRAY XRAY Interpreted by: Radiologist (There is a 5mm nodule within the left lower lobe. remaining visualized lung bases are clear. Degenerative changes are noted throughout the spine. No aggressive osseous lesions are identified. There is suggestion of small gallstones within the collapsed and nondistended gallbladder, which demonstrates mild wall thickening,, likely related to collapse. There is fluid within the proximal small bowel which is mildly thickened with with mucosal enhancement. .) - Diagnosis Discharge Problem: Hypokalemia, Hematochezia Leukopenia Qualifiers: Leukopenia type: unspecified Qualified Code(s): D72.819 - Decreased white blood cell count, unspecified Cholelithiasis Qualifiers: Cholelithiasis location: gallbladder and bile duct Cholecystitis presence: without cholecystitis Biliary obstruction: with biliary obstruction Qualified Code(s): K80.71 - Calculus of gallbladder and bile duct without cholecystitis with obstruction - Discharge Plan Condition: Stable - Follow ups/Referrals Follow ups/Referrals: THUAN PANTOJA [Primary Care Provider] - 3 days - Instructions
[2017-06-17 20:11] LABS: BASOPHILS % (AUTO) 0.5 % (0.2-1.0); EOSINOPHILS # (AUTO) 0.1 x10^3/uL (0.0-0.2); EOSINOPHILS % (AUTO) 2.6 % (0.9-2.9); HEMATOCRIT 34.6 % (36.0-47.0); HEMOGLOBIN 11.7 g/dL (12.0-16.0); LYMPHOCYTES # (AUTO) 0.7 X10^3/uL (1.3-2.9); LYMPHOCYTES % (AUTO) 29.6 % (21.0-51.0); MEAN CORPUSCULAR HEMOGLOBIN 30.8 pg (27.0-34.0); MEAN CORPUSCULAR HGB CONC 33.9 g/dL (33.0-35.0); MEAN CORPUSCULAR VOLUME 90.9 fL (80.0-100.0); MEAN PLATELET VOLUME 8.4 fL (7.4-11.0); MONOCYTES # (AUTO) 0.2 x10^3/uL (0.3-0.8); MONOCYTES % (AUTO) 6.7 % (0.0-13.0); NEUTROPHILS # (AUTO) 1.4 x10^3/uL (2.2-4.8); NEUTROPHILS % (AUTO) 60.6 % (42.0-75.0); PLATELET COUNT 76 X10^3/uL (150.0-450.0); RED BLOOD COUNT 3.81 X10^6/uL (3.5-5.4); RED CELL DISTRIBUTION WIDTH 16.3 % (11.6-16.5); WHITE BLOOD COUNT 2.3 X10^3/uL (3.6-10.0)
[2017-06-17 20:14] LABS: BILIRUBIN,URINE NEGATIVE (NEGATIVE); BLOOD/HEMOGLOBIN,URINE NEGATIVE (NEGATIVE); GLUCOSE, URINE NEGATIVE (NEGATIVE); KETONES,URINE NEGATIVE (NEGATIVE); LEUKOCYTE ESTERASE ,URINE NEGATIVE (NEGATIVE); NITRITES,URINE NEGATIVE (NEGATIVE); PROTEIN,URINE NEGATIVE (NEGATIVE); UROBILINOGEN,URINE NORMAL (NORMAL)
[2017-06-17 20:20] LABS: BLOOD UREA NITROGEN 7 mg/dL (7-18); CALCIUM 8.5 mg/dL (8.5-10.1); CARBON DIOXIDE 31.2 mmol/L (21-32); CHLORIDE 107 mmol/L (98-107); COR NA(FOR HYPERGLY) 145 mmol/L (136-145); CREATININE 0.94 mg/dL (0.55-1.02); GLUCOSE 199 mg/dL (65-99); SODIUM 143 mmol/L (136-145); eGFR BLACK RACES > 60 (>60); eGFR NON BLACK RACES > 60 (>60)
[2017-06-17 20:22] LABS: ALANINE AMINOTRANSFERASE 73 Units/L (12-78); ALBUMIN 3.3 g/dL (3.4-5.0); ALKALINE PHOSPHATASE 310 Units/L (46-116); ASPARTATE AMINO TRANSFERASE 116 Units/L (15-37); COR CA(FOR HYPOALB) 9.1 mg/dL (8.5-10.1); TOTAL PROTEIN 7.6 g/dL (6.4-8.2)
[2017-06-17 20:29] LABS: APPEARANCE,URINE CLEAR (CLEAR); BACTERIA,URINE TRACE /HPF (NEGATIVE); COLOR,URINE PALE YELLOW (YELLOW); MUCUS,URINE FEW /HPF (NEGATIVE); RBC,URINE 0-1 /HPF (NEGATIVE); SQUAMOUS EPITHELIAL CELL,UR FEW /HPF (NEGATIVE)
[2017-06-17 20:30] LABS: BAND NEUTROPHILS % 1 % (0-10); PLATELET MORPHOLOGY COMMENT NORMAL (NORMAL)
[2017-06-17 20:31] LABS: HYPOCHROMASIA SLIGHT
[2017-06-17] MEDS ORDERED: K-LYTE EFFERVESCENT PO ONE (20:39)
[2017-06-17] MEDS ORDERED: K-LYTE EFFERVESCENT ONE (20:51)
[2017-06-17] MEDS ORDERED: NS 1000 ML 1,000 ML ONE (20:56)
[2017-06-17 21:11] LABS: STOOL FOR WBC NEGATIVE (NEGATIVE)
[2017-06-17] MEDS ORDERED: NS 1000 ML 1,000 ML IV ONE (21:12)
[2017-06-17] MEDS ORDERED: NS 100 ML IV 100 ML IV ONE (21:15)
--- NOTE | 2017-06-17 22:08 | CT ---
CT abdomen and pelvis with contrast Indication: Abdominal pain Technique: Helical CT images of the abdomen and pelvis were obtained with IV contrast. Reformatted im ages in the coronal and sagittal planes were also generated for review. Comparison: None Findings: There is a 5 mm nodule within the left lower lobe (image 9, series 7). Remaining visualized lung bases are clear. Degenerative changes are noted throughout the spine. No aggressive osseous les ions are identified. There is suggestion of small gallstones within the collapsed and nondistended gallbladder, which demo nstrates mild wall thickening, likely related to collapse. The liver, spleen, pancreas , adrenals and kidneys are unremarkable. The appendix is not definitively identified, although no pericecal inflamm ation is present to suggest acute appendicitis. There is fluid within the proximal small bowel which is mildly thickened with mucosal enhancement. The remaining GI tract is normal. The aortoiliac system is moderately calcified without aneurysm. The urinary bladder is normal. The uterus is present. Trac e volume ascites is present throughout the abdomen and pelvis. No free air or lymphadenopathy is iden tified. Impression: 1. Small fluid throughout the proximal small bowel with mild associated mucosal thickening and enhanc ement, suggestive for mild enteritis. 2. Suspected cholelithiasis without convincing evidence of acute cholecystitis. 3. Trace volume abdominal pelvic ascites, likely reactive. 4. 5 mm left lower lobe nodule. Comparison with prior imaging if available or further evaluation with dedicated CT chest is recommended, if clinically indicated. Reported By:
== END 2017-06-17 23:21 | disposition home or self-care (01) ==
LOC: ER 19:20
DX: K80.71 Calculus of gallbladder and bile duct without cholecystitis with obstruction (principal); K92.1 Melena; E87.6 Hypokalemia; D72.819 Decreased white blood cell count, unspecified
CPT/HCPCS: 36415; 74177; 80053; 81001; 82270; 83630; 85025; 96367; 99283; A4222

== ENCOUNTER 2017-10-25 17:41 | Emergency (ER) | payer SELFPAY ==
[2017-10-25 17:49] VITALS: BP 145/79; BMI 30.9
[2017-10-25 18:19] LABS: BASOPHILS % (AUTO) 0.5 % (0.2-1.0); EOSINOPHILS % (AUTO) 2.3 % (0.9-2.9); HEMATOCRIT 34.9 % (36.0-47.0); HEMOGLOBIN 11.7 g/dL (12.0-16.0); LYMPHOCYTES # (AUTO) 0.4 X10^3/uL (1.3-2.9); MEAN CORPUSCULAR HEMOGLOBIN 30.1 pg (27.0-34.0); MEAN CORPUSCULAR HGB CONC 33.5 g/dL (33.0-35.0); MEAN CORPUSCULAR VOLUME 89.8 fL (80.0-100.0); MEAN PLATELET VOLUME 8.4 fL (7.4-11.0); MONOCYTES # (AUTO) 0.2 x10^3/uL (0.3-0.8); MONOCYTES % (AUTO) 9.1 % (0.0-13.0); NEUTROPHILS # (AUTO) 1.1 x10^3/uL (2.2-4.8); NEUTROPHILS % (AUTO) 64.1 % (42.0-75.0); PLATELET COUNT 49 X10^3/uL (150.0-450.0); RED BLOOD COUNT 3.89 X10^6/uL (3.5-5.4)
[2017-10-25 18:23] LABS: WHITE BLOOD COUNT 1.7 X10^3/uL (3.6-10.0)
[2017-10-25 18:31] LABS: PLATELET MORPHOLOGY COMMENT NORMAL (NORMAL)
--- NOTE | 2017-10-25 18:41 | RAD ---
HISTORY: Chest pain, headache, dizzy, and vomiting. Study: Portable chest. Comparison: Chest x-ray dated January 09, 2017. Findings: The trachea is midline. The cardiac silhouette is unremarkable. No obvious focal consolidation, ple ural effusion, or pneumothorax.. The bony thorax is unremarkable. IMPRESSION: No acute cardiopulmonary disease. Reported By:
[2017-10-25 18:48] LABS: ALANINE AMINOTRANSFERASE 56 Units/L (12-78); ALBUMIN 3.2 g/dL (3.4-5.0); ALKALINE PHOSPHATASE 349 Units/L (46-116); ASPARTATE AMINO TRANSFERASE 77 Units/L (15-37); BLOOD UREA NITROGEN 9 mg/dL (7-18); CALCIUM 9.2 mg/dL (8.5-10.1); CARBON DIOXIDE 34.1 mmol/L (21-32); CHLORIDE 99 mmol/L (98-107); CKMB % 0.7 % (<4); COR CA(FOR HYPOALB) 9.8 mg/dL (8.5-10.1); COR NA(FOR HYPERGLY) 143 mmol/L (136-145); CREATINE KINASE 138 Units/L (26-192); CREATINE KINASE MB < 1.0 ng/mL (0-4.0); CREATININE 0.91 mg/dL (0.55-1.02); MAGNESIUM 1.2 mg/dL (1.7-2.9); SODIUM 142 mmol/L (136-145); TOTAL PROTEIN 7.7 g/dL (6.4-8.2); TROPONIN I < 0.02 ng/mL (0-1.5); eGFR BLACK RACES > 60 (>60); eGFR NON BLACK RACES > 60 (>60)
--- NOTE | 2017-10-25 19:24 | DR.GENAD ---
HPI - PCP Primary Care Physician: SCALRETT - HPI Comment HPI Comment: GOT WORSE, CAME TO ED. SOME COLD SYMTOM PRESENT. NO FEVER. HISTORY PANCYTOPENIA. - Complaint/Symptoms Chief Complaint Doctors Comments: SUDDEN ONSET OF DIZZINEESS, HEADACHE, NAUSEA AND VOMITING THIS AFTERNOON. Chief Complaint:: PT STATED THAT SHE STARTED FEELING DIZZY, HOT, VOMITING AND A HEADACHE. 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 - Nurses notes reviewed Nurses Notes Review: Yes - Source History Provided: Patient - Mode of Arrival Mode of Arrival: Ambulatory - Timing Onset of Chief Complaint: 10/25/17 Came on: Suddenly - Duration Duration: Constant Duration: Days - Severity Severity: Moderate PMH - PMH Past Medical History: Yes Past Medical History: Coronary Artery Disease, Diabetes, GERD, Hypertension, [place] Past Surgical History: Yes Surgical History: Angioplasty/Stents, P[employer]OT [employer] Surgery - Family History History of Family Medical Conditions: Yes Family Medical History: Diabetes Mellitus, Coronary Artery Disease, Hypertension - Social History Does patient currently use any type of tobacco product: Yes Have you used tobacco products in the last 12 months: Yes Type of Tobacco Use: Cigars How many years tobacco product used: 30 Does any household member use tobacco: No Alcohol Use: Occasionally Do you use any recreational Drugs:: No Lives With: Family Lives Where: Home - infectious screening In the last 2 months have you had wt loss of >10#?: NO Have you had fever, night sweats or hemotysis?: No Have you traveled outside the country in the last 6 months?: No Isolation: Standard ROS - Review of Systems Constitutional: No Symptoms Reported, Weakness, Fatigue. negative: Chills, Diaphoresis, Fever, Malaise Eyes: Blurred Vision. negative: Eye Pain, Discharge ENTM: Nose Discharge, Nose Congestion. negative: Ear Pain, Throat Pain Respiratoy: Non-Productive Cough. negative: Productive Cough, Short of Breath, Wheezing, Hemoptysis Gastrointestinal/Abdominal: Nausea. negative: Abdominal Pain, Vomiting Genitourinary: negative: Dysuria, Frequency, Hematuria Neurological: Headache, Weakness, Dizziness Musculoskeletal: Muscle Pain Integumentary: No Symptoms Reported Hematologic/Lymphatic: No Symptoms Reported Endocrine: No Symptoms Reported All Other Systems: Reviewed and Negative PE - Vital Signs Vitals: Temperature 98.7 F Pulse Rate 108 Respiratory Rate 16 Blood Pressure [Left Arm] 133/64 Blood Pressure 145/79 O2 Sat by Pulse Oximetry 99 - General Limitations: No Limitations General Appearance: Alert - Head Head Exam: Normal Inspection - Eyes Eye exam: Normal Appearance - ENT ENT Exam: Normal External Ear Exam External Ear Exam: Normal External Inspection TM/Canal Exam: Bilateral Normal Nose Exam: Normal Nose Exam Mouth Exam: Normal Inspection Throat Exam: Normal Inspection - Neck Neck Exam: Trachea Midline - Chest Chest Inspection: Symmetric Chest Wall Rise - Respiratory Respiratory Exam: Normal Lung Sounds Bilat Respiratory Exam: Bilateral Rhonchi, Lower Rhonchi - Cardiovascular Cardiovascular Exam: Regular Rate, Normal Rhythm, Normal Heart Sounds - Abdominal Exam Abdominal Exam: Normal Bowel Sounds, Soft, Tenderness - Extremities Extremities Exam: Normal Inspection - Back Back Exam: Normal Inspection - Neurologic Neurological Exam: Alert, Oriented X3, CN II-XII Intact, Normal Gait, Reflexes Normal. negative: Motor Sensory Deficit - Psychiatric Psychiatric Exam: Anxious - Skin Skin Exam: Normal Color MDM - Additional Information Additional Information Obtained From: Family - Differential Diagnosis Differential Diagnosis: DIZZINESS, HEADACHE, [place], VERTIGO, TIA, CVA, HYPERTENSION Course - Treatment Treatment: SEE ORDERS. - Education/Counseling Education/Counseling: Patient, Family, Education Educated On: Treatment, Diagnosis, Needs for Follow Up ROR - Labs Reviewed Result Diagrams: 10/25/17 18:10 10/25/17 18:10 Laboratory: WBC 1.7 X10^3/uL (3.6-10.0) L* 10/25/17 18:10 RBC 3.89 X10^6/uL (3.5-5.4) 10/25/17 18:10 Hgb 11.7 g/dL (12.0-16.0) L 10/25/17 18:10 Hct 34.9 % (36.0-47.0) L 10/25/17 18:10 MCV 89.8 fL (80.0-100.0) 10/25/17 18:10 MCH 30.1 pg (27.0-34.0) 10/25/17 18:10 MCHC 33.5 g/dL (33.0-35.0) 10/25/17 18:10 RDW 16.0 % (11.6-16.5) 10/25/17 18:10 Plt Count 49 X10^3/uL (150.0-450.0) L 10/25/17 18:10 Plt Count Comment Decreased (ADEQUATE) A 10/25/17 18:10 MPV 8.4 fL (7.4-11.0) 10/25/17 18:10 Neut % 64.1 % (42.0-75.0) 10/25/17 18:10 Lymph % 24.0 % (21.0-51.0) 10/25/17 18:10 Lares % 9.1 % (0.0-13.0) 10/25/17 18:10 Eos % 2.3 % (0.9-2.9) 10/25/17 18:10 Baso % 0.5 % (0.2-1.0) 10/25/17 18:10 Neut # 1.1 x10^3/uL (2.2-4.8) L 10/25/17 18:10 Lymph # 0.4 X10^3/uL (1.3-2.9) L 10/25/17 18:10 Lares # 0.2 x10^3/uL (0.3-0.8) L 10/25/17 18:10 Eos # 0.0 x10^3/uL (0.0-0.2) 10/25/17 18:10 Baso # 0.0 X10^3/uL (0.0-0.1) 10/25/17 18:10 Absolute Nucleated RBC 0.0 /100WBC 10/25/17 18:10 Total Counted 50 10/25/17 18:10 Neutrophils % (Manual) 64 % (39-76) 10/25/17 18:10 Lymphocytes % (Manual) 28 % (13-43) 10/25/17 18:10 Monocytes % (Manual) 4 % (4-9) 10/25/17 18:10 Eosinophils % (Manual) 4 % (0-6) 10/25/17 18:10 Plt Morphology Comment Normal (NORMAL) 10/25/17 18: RBC Morphology Normal (NORMAL) 10/25/17 18:10 INR Target Range - 10/25/17 18:10 INR 1.11 (0.8-1.3) 10/25/17 18:10 PTT 27.3 SECONDS (22.9-36.5) 10/25/17 18:10 PTT Comment - 10/25/17 18:10 Sodium 142 mmol/L (136-145) 10/25/17 18:10 Corrected Sodium 143 mmol/L (136-145) 10/25/17 18:10 Potassium 2.4 mmol/L (3.5-5.1) L* 10/25/17 18:10 Chloride 99 mmol/L (98-107) 10/25/17 18:10 Carbon Dioxide 34.1 mmol/L (21-32) H 10/25/17 18:10 BUN 9 mg/dL (7-18) 10/25/17 18:10 Creatinine 0.91 mg/dL (0.55-1.02) 10/25/17 18:10 Est GFR (MDRD) Af Amer > 60 (>60) 10/25/17 18:10 Est GFR (MDRD) Non-Af > 60 (>60) 10/25/17 18:10 Glucose 148 mg/dL (65-99) H 10/25/17 18:10 Calcium 9.2 mg/dL (8.5-10.1) 10/25/17 18:10 Corrected Calcium 9.8 mg/dL (8.5-10.1) 10/25/17 18:10 Magnesium 1.2 mg/dL (1.7-2.9) L 10/25/17 18:10 Total Bilirubin 1.10 mg/dL (0.2-1.0) H 10/25/17 18:10 AST 77 Units/L (15-37) H 10/25/17 18:10 ALT 56 Units/L (12-78) 10/25/17 18:10 Alkaline Phosphatase 349 Units/L (46-116) H 10/25/17 18:10 Creatine Kinase 138 Units/L (26-192) 10/25/17 18:10 CK-MB (CK-2) < 1.0 ng/mL (0-4.0) 10/25/17 18:10 CK/CKMB % Calc 0.7 % (<4) 10/25/17 18:10 Troponin I < 0.02 ng/mL (0-1.5) 10/25/17 18:10 Total Protein 7.7 g/dL (6.4-8.2) 10/25/17 18:10 Albumin 3.2 g/dL (3.4-5.0) L 10/25/17 18:10 Globulin 4.5 g/dL (2.5-4.5) 10/25/17 18:10 Albumin/Globulin Ratio 0.7 Ratio (1.1-2.1) L 10/25/17 18:10 - XRAY XRAY Findings: REPORT DISCUSS WITH PATIENT. - EKG Rhythm: NSR (EKG NOTED) - Diagnosis Discharge Problem: Hypokalemia, Vertigo, Dizziness Leukopenia Qualifiers: Leukopenia type: neutropenia Neutropenia type: unspecified Qualified Code(s): D70.9 - Neutropenia, unspecified - Discharge Plan Condition: Stable Prescriptions: Meclizine HCl 25 mg PO TID PRN #30 tab PRN Reason: Dizziness - Follow ups/Referrals Follow ups/Referrals: THUAN PANTOJA [Primary Care Provider] - 3 days - Instructions Instructions: Vertigo, [id number], Dizziness, [id number] Additional Instructions: RETURN TO ED IF WORSE.
--- NOTE | 2017-10-25 19:49 | CT ---
HISTORY: Chest pain, headache, dizziness, and vomiting. Study: CT brain without contrast Comparison: None available. Technique: Multiple axial images of the brain were obtained from the skull base to the vertex without administra tion of IV contrast. Dose reduction techniques including Automated Exposure Control (AEC) and adjust ment of mA and kV were utilized. Findings: Age-related cortical atrophy and chronic small vessel ischemic changes. No acute intraparenchymal hem orrhage or mass can be identified. No extra-axial fluid collections are seen. No alteration in the attenuation of the brain parenchyma can be identified to suggest acute or subacute ischemic change. The ventricular system is symmetric and nondilated. The extracranial structures are grossly unremark able. IMPRESSION: No obvious acute intracranial pathology. If clinically concerned for acute ischemia/infar ction, MRI brain is more sensitive. Reported By:
[2017-10-25] MEDS ORDERED: K-LYTE EFFERVESCENT PO ONE (19:51)
[2017-10-25] MEDS ORDERED: K-LYTE EFFERVESCENT ONE (20:37)
[2017-10-25] MEDS ORDERED: ANTIVERT TAB 25 MG PO ONE (20:54)
[2017-10-25] MEDS ORDERED: ANTIVERT TAB 25 MG ONE (20:56)
== END 2017-10-25 21:04 | disposition home or self-care (01) ==
LOC: ER 17:56
DX: R42 Dizziness and giddiness (principal); E87.6 Hypokalemia; D70.8 Other neutropenia
CPT/HCPCS: 36415; 70450; 71045; 80053; 82550; 82553; 83735; 84484; 85025; 85610; 85730; 93005; 93010; 96365; 99283; 99285; A4222

== ENCOUNTER 2017-11-11 12:17 | Emergency (ER) | payer SELFPAY ==
[2017-11-11 13:05] LABS: BASOPHILS % (AUTO) 1.2 % (0.2-1.0); EOSINOPHILS % (AUTO) 2.6 % (0.9-2.9); HEMATOCRIT 31.4 % (36.0-47.0); HEMOGLOBIN 10.5 g/dL (12.0-16.0); LYMPHOCYTES # (AUTO) 0.5 X10^3/uL (1.3-2.9); LYMPHOCYTES % (AUTO) 29.9 % (21.0-51.0); MEAN CORPUSCULAR HEMOGLOBIN 30.1 pg (27.0-34.0); MEAN CORPUSCULAR HGB CONC 33.5 g/dL (33.0-35.0); MEAN CORPUSCULAR VOLUME 89.8 fL (80.0-100.0); MEAN PLATELET VOLUME 9.1 fL (7.4-11.0); MONOCYTES # (AUTO) 0.1 x10^3/uL (0.3-0.8); MONOCYTES % (AUTO) 5.4 % (0.0-13.0); NEUTROPHILS # (AUTO) 1.1 x10^3/uL (2.2-4.8); NEUTROPHILS % (AUTO) 60.9 % (42.0-75.0); PLATELET COUNT 63 X10^3/uL (150.0-450.0); RED BLOOD COUNT 3.49 X10^6/uL (3.5-5.4); RED CELL DISTRIBUTION WIDTH 16.4 % (11.6-16.5)
[2017-11-11 13:13] LABS: WHITE BLOOD COUNT 1.7 X10^3/uL (3.6-10.0)
[2017-11-11] MEDS ORDERED: NITROSTAT SL PRN (13:13)
[2017-11-11 13:19] LABS: BLOOD UREA NITROGEN 7 mg/dL (7-18); CALCIUM 8.8 mg/dL (8.5-10.1); CARBON DIOXIDE 31.9 mmol/L (21-32); CHLORIDE 101 mmol/L (98-107); COR NA(FOR HYPERGLY) 143 mmol/L (136-145); CREATININE 0.91 mg/dL (0.55-1.02); SODIUM 139 mmol/L (136-145); TROPONIN I < 0.02 ng/mL (0-1.5); eGFR BLACK RACES > 60 (>60); eGFR NON BLACK RACES > 60 (>60)
--- NOTE | 2017-11-11 13:20 | DR.GENAD ---
HPI - PCP Primary Care Physician: JAYNA SORTO - HPI Comment HPI Comment: WORSE TODAY. HISTORY CAD WITH STENTS IN THE PAST. PAIN SIMILAR TO PAIN EXPERIENCE WITH THOSE EVENTS. NO FEVER . HAVE PRODUCTIVE COUGH WITH FATIGUE. - Complaint/Symptoms Chief Complaint Doctors Comments: CHEST PAIN BETWEEN SHOULDER BLADE WITH WEAKNESS, SOB ABD FATIGUE TIMES ONE DAY. Chief Complaint:: PT. C/O PAIN TO LEFT SHOULDER BLADE WELL DIZZINESS. PT. HAD LEFT SIDED NECK PAIN YESTERDAY. PT. ALSO C/O SOB AND FATIGUE. - Nurses notes reviewed Nurses Notes Review: Yes - Source History Provided: Patient - Mode of Arrival Mode of Arrival: Ambulatory - Timing Onset of Chief Complaint: 11/10/17 Came on: Suddenly - Duration Duration: Constant Duration: Days - Severity Severity: Moderate PMH - PMH Past Medical History: Yes Past Medical History: Coronary Artery Disease, Diabetes, GERD, Hypertension, [place] Past Surgical History: Yes Surgical History: Angioplasty/Stents, VEGETABLE SCULLION Surgery - Family History History of Family Medical Conditions: Yes Family Medical History: Diabetes Mellitus, Coronary Artery Disease, Hypertension - Social History Does patient currently use any type of tobacco product: Yes Have you used tobacco products in the last 12 months: Yes Type of Tobacco Use: Cigarettes Does any household member use tobacco: No Alcohol Use: Occasionally Do you use any recreational Drugs:: No Lives With: Family Lives Where: Home - infectious screening In the last 2 months have you had wt loss of >10#?: NO Have you had fever, night sweats or hemotysis?: No Have you traveled outside the country in the last 6 months?: No Isolation: Standard ROS - Review of Systems Constitutional: Weakness, Fatigue. negative: Chills, Fever Eyes: negative: Eye Pain, Discharge ENTM: Nose Congestion, Throat Pain. negative: Ear Pain, Nose Discharge Respiratoy: Productive Cough, Short of Breath, Wheezing. negative: Hemoptysis Cardiovascular: Chest Pain, Edema Gastrointestinal/Abdominal: No Symptoms Reported. negative: Abdominal Pain, Constipation, Nausea, Vomiting Genitourinary: No Symptoms Reported. negative: Discharge, Dysuria, Frequency Neurological: Headache, Weakness, Dizziness Musculoskeletal: Back Pain Integumentary: No Symptoms Reported Hematologic/Lymphatic: No Symptoms Reported Endocrine: Increased Thirst. negative: Flushing All Other Systems: Reviewed and Negative PE - Vital Signs Vitals: Temperature 97.1 F Pulse Rate [Apical] 56 Pulse Rate 61 Respiratory Rate 20 Blood Pressure [Left Arm] 117/56 Blood Pressure 130/61 O2 Sat by Pulse Oximetry 96 - General Limitations: No Limitations General Appearance: Alert - Head Head Exam: Normal Inspection - Eyes Eye exam: Normal Appearance - ENT ENT Exam: Normal External Ear Exam External Ear Exam: Normal External Inspection TM/Canal Exam: Bilateral Normal Nose Exam: Normal Nose Exam Mouth Exam: Normal Inspection Throat Exam: Normal Inspection - Neck Neck Exam: Trachea Midline - Chest Chest Inspection: Symmetric Chest Wall Rise - Respiratory Respiratory Exam: Normal Lung Sounds Bilat Respiratory Exam: Bilateral Clear to Auscultation - Cardiovascular Cardiovascular Exam: Regular Rate, Normal Rhythm, Normal Heart Sounds - Abdominal Exam Abdominal Exam: Normal Bowel Sounds, Soft. negative: Tenderness - Extremities Extremities Exam: Edema - Back Back Exam: Paraspinal Tenderness - Neurologic Neurological Exam: Alert, Oriented X3 - Psychiatric Psychiatric Exam: Normal Affect, Normal Mood - Skin Skin Exam: Erythema MDM - Additional Information Additional Information Obtained From: Family - Differential Diagnosis Differential Diagnosis: CHEST PAIN, [place], PE, PNEUMONIA, PNUEMOTHORAX Course - Treatment Treatment: SEE ORDERS, - Consultation Consultation Comments: DISCUSS PATIENT WITH DR. ACEVEDO. HE WILL ADMIT PATIENT. - Education/Counseling Education/Counseling: Patient, Family, Education Educated On: Diagnosis, Needs for Follow Up ROR - Labs Reviewed Laboratory Results Reviewed?: Yes Result Diagrams: 11/11/17 12:53 11/11/17 12:53 Laboratory: WBC 1.7 X10^3/uL (3.6-10.0) L* 11/11/17 12:53 RBC 3.49 X10^6/uL (3.5-5.4) L 11/11/17 12:53 Hgb 10.5 g/dL (12.0-16.0) L 11/11/17 12:53 Hct 31.4 % (36.0-47.0) L 11/11/17 12:53 MCV 89.8 fL (80.0-100.0) 11/11/17 12:53 MCH 30.1 pg (27.0-34.0) 11/11/17 12:53 MCHC 33.5 g/dL (33.0-35.0) 11/11/17 12:53 RDW 16.4 % (11.6-16.5) 11/11/17 12:53 Plt Count 63 X10^3/uL (150.0-450.0) L 11/11/17 12:53 MPV 9.1 fL (7.4-11.0) 11/11/17 12:53 Neut % 60.9 % (42.0-75.0) 11/11/17 12:53 Lymph % 29.9 % (21.0-51.0) 11/11/17 12:53 Divide % 5.4 % (0.0-13.0) 11/11/17 12:53 Eos % 2.6 % (0.9-2.9) 11/11/17 12:53 Baso % 1.2 % (0.2-1.0) H 11/11/17 12:53 Neut # 1.1 x10^3/uL (2.2-4.8) L 11/11/17 12:53 Lymph # 0.5 X10^3/uL (1.3-2.9) L 11/11/17 12:53 Divide # 0.1 x10^3/uL (0.3-0.8) L 11/11/17 12:53 Eos # 0.0 x10^3/uL (0.0-0.2) 11/11/17 12:53 Baso # 0.0 X10^3/uL (0.0-0.1) 11/11/17 12:53 Absolute Nucleated RBC 0.0 /100WBC 11/11/17 12:53 D-Dimer 1510 ng/mL (0-400) H* 11/11/17 12:53 Sodium 139 mmol/L (136-145) 11/11/17 12:53 Corrected Sodium 143 mmol/L (136-145) 11/11/17 12:53 Potassium 4.0 mmol/L (3.5-5.1) 11/11/17 12:53 Chloride 101 mmol/L (98-107) 11/11/17 12:53 Carbon Dioxide 31.9 mmol/L (21-32) 11/11/17 12:53 BUN 7 mg/dL (7-18) 11/11/17 12:53 Creatinine 0.91 mg/dL (0.55-1.02) 11/11/17 12:53 Est GFR (MDRD) Af Amer > 60 (>60) 11/11/17 12:53 Est GFR (MDRD) Non-Af > 60 (>60) 11/11/17 12:53 Glucose 248 mg/dL (65-99) H 11/11/17 12:53 Calcium 8.8 mg/dL (8.5-10.1) 11/11/17 12:53 Corrected Calcium 9.9 mg/dL (8.5-10.1) 11/11/17 12:53 Total Bilirubin 0.70 mg/dL (0.2-1.0) 11/11/17 12:53 AST 80 Units/L (15-37) H 11/11/17 12:53 ALT 62 Units/L (12-78) 11/11/17 12:53 Alkaline Phosphatase 300 Units/L (46-116) H 11/11/17 12:53 Creatine Kinase 96 Units/L (26-192) 11/11/17 12:53 CK-MB (CK-2) < 1.0 ng/mL (0-4.0) 11/11/17 12:53 CK/CKMB % Calc 1.0 % (<4) 11/11/17 12:53 Troponin I < 0.02 ng/mL (0-1.5) 11/11/17 12:53 Total Protein 6.7 g/dL (6.4-8.2) 11/11/17 12:53 Albumin 2.6 g/dL (3.4-5.0) L 11/11/17 12:53 Globulin 4.1 g/dL (2.5-4.5) 11/11/17 12:53 Albumin/Globulin Ratio 0.6 Ratio (1.1-2.1) L 11/11/17 12:53 Amylase 37 Units/L (25-115) 11/11/17 12:53 Lipase 278 Units/L (73-393) 11/11/17 12:53 - XRAY XRAY Interpreted by: Radiologist XRAY Findings: REPORT DISCUSS WITH PATIENT. - Diagnosis Discharge Problem: Cholelithiases Chest pain Qualifiers: Chest pain type: unspecified Qualified Code(s): R07.9 - Chest pain, unspecified Leukopenia Qualifiers: Leukopenia type: neutropenia Neutropenia type: unspecified Qualified Code(s): D70.9 - Neutropenia, unspecified - Discharge Plan Disposition: ADMITTED INPATIENT Condition: Stable - Follow ups/Referrals - Instructions
[2017-11-11 13:23] LABS: ALANINE AMINOTRANSFERASE 62 Units/L (12-78); ALBUMIN 2.6 g/dL (3.4-5.0); ALKALINE PHOSPHATASE 300 Units/L (46-116); ASPARTATE AMINO TRANSFERASE 80 Units/L (15-37); COR CA(FOR HYPOALB) 9.9 mg/dL (8.5-10.1); CREATINE KINASE 96 Units/L (26-192); CREATINE KINASE MB < 1.0 ng/mL (0-4.0); TOTAL PROTEIN 6.7 g/dL (6.4-8.2)
[2017-11-11] MEDS: ASPIRIN 81 MG CHEWTAB PO SCH (13:26)
--- NOTE | 2017-11-11 13:39 | RAD ---
Indication: Pain . Exam: Portable chest Comparison: 10/25/2017 Findings: The heart is normal. The pulmonary vessels are normal. There is overlying EKG lead artifact . No consolidation or effusion is seen. The bones are intact. There is a questionable small density a long the left lung base. Impression: Overlying artifact limiting the exam with a questionable small nodule or scar vs artifac t along the left lung base. Recommend a follow-up PA and lateral chest. Reported By:
--- NOTE | 2017-11-11 14:30 | CT ---
HISTORY: Chest pain, elevated D-dimer Study: CTA chest with contrast for pulmonary embolus Comparison: None Technique: Axial post-contrast images with coronal, sagittal, and three-dimensional maximum intensity projection images obtained and evaluated. Dose reduction procedures were used with mA/kv adjusted fo r body size. Findings: There is no evidence for acute pulmonary thromboembolic disease in the main pulmonary artery, right a nd left main pulmonary artery, lobar branches and proximal-most segmental branches. Evaluation more d istally is not possible due to suboptimal bolus timing. Examination of the mediastinum demonstrated n o evidence for mediastinal masses, enlarged mediastinal adenopathy, or enlarged hilar adenopathy. Cor onary artery calcifications are present. No pleural effusions are identified. No chest wall or axilla ry abnormality is identified. Those portions of the upper abdominal organs visualized were within nor mal limits with the exception of splenomegaly and cholelithiasis. Examination of the lung pena demo nstrated no evidence for nodules, masses, areas of consolidation, alveolar infiltrates, peribronchial thickening, or bronchiectasis. IMPRESSION: Exam negative for acute pulmonary thromboembolic disease in the main pulmonary artery, right and left main pulmonary artery, lobar branches and proximal-most segmental branches. Evaluation more distally is not possible due to suboptimal bolus timing Extensive coronary artery calcifications Lungs clear Cholelithiasis Splenomegaly Reported By:
[2017-11-11 14:54] LABS: AMYLASE 37 Units/L (25-115); LIPASE 278 Units/L (73-393)
[2017-11-11] MEDS ORDERED: ULTRAM PO PRN (15:51)
[2017-11-11] MEDS ORDERED: NS 1000 ML 1,000 ML ONE (16:11)
[2017-11-11] MEDS: NS 1000 ML 1,000 ML IV SCH (16:12)
[2017-11-11 16:41] LABS: CREATINE KINASE 103 Units/L (26-192); CREATINE KINASE MB < 1.0 ng/mL (0-4.0); TROPONIN I < 0.02 ng/mL (0-1.5)
[2017-11-11] MEDS: PEPCID 20 MG IV PREMIX* 20 MG/50 ML BAG IV SCH ×2 (16:51→20:24)
[2017-11-11] MEDS ORDERED: FLUVIRIN IM ONE (17:24)
[2017-11-11] MEDS ORDERED: ZOFRAN INJ 4 MG VIAL IVP PRN (18:01)
[2017-11-11] MEDS: CELEXA PO SCH (20:24)
[2017-11-11 22:29] LABS: CKMB % 1.2 % (<4); CREATINE KINASE 84 Units/L (26-192); CREATINE KINASE MB < 1.0 ng/mL (0-4.0); TROPONIN I < 0.02 ng/mL (0-1.5)
[2017-11-11] MEDS ORDERED: PHENERGAN INJ 25 MG IV PRN (22:42)
[2017-11-12 01:13] LABS: BILIRUBIN,URINE NEGATIVE (NEGATIVE); BLOOD/HEMOGLOBIN,URINE NEGATIVE (NEGATIVE); GLUCOSE, URINE 3+ (NEGATIVE); KETONES,URINE NEGATIVE (NEGATIVE); LEUKOCYTE ESTERASE ,URINE NEGATIVE (NEGATIVE); NITRITES,URINE NEGATIVE (NEGATIVE); PROTEIN,URINE 1+ (NEGATIVE); UROBILINOGEN,URINE NORMAL (NORMAL)
[2017-11-12 01:43] LABS: APPEARANCE,URINE CLEAR (CLEAR); BACTERIA,URINE TRACE /HPF (NEGATIVE); COLOR,URINE YELLOW (YELLOW); RBC,URINE 0-3 /HPF (NEGATIVE); SQUAMOUS EPITHELIAL CELL,UR FEW /HPF (NEGATIVE)
[2017-11-12] MEDS: NS 1000 ML 1,000 ML IV SCH ×2 (05:26→17:18)
[2017-11-12 06:06] LABS: ALANINE AMINOTRANSFERASE 49 Units/L (12-78); ALBUMIN 2.4 g/dL (3.4-5.0); ALKALINE PHOSPHATASE 264 Units/L (46-116); ASPARTATE AMINO TRANSFERASE 59 Units/L (15-37); BLOOD UREA NITROGEN 6 mg/dL (7-18); CALCIUM 8.1 mg/dL (8.5-10.1); CARBON DIOXIDE 30.6 mmol/L (21-32); CHLORIDE 105 mmol/L (98-107); CHOL/HDL RATIO 4.2 (0.0-5.0); CHOLESTEROL 84 mg/dL (0-200); CKMB % 1.5 % (<4); COR CA(FOR HYPOALB) 9.4 mg/dL (8.5-10.1); COR NA(FOR HYPERGLY) 143 mmol/L (136-145); CREATINE KINASE 66 Units/L (26-192); CREATINE KINASE MB < 1.0 ng/mL (0-4.0); HDL CHOLESTEROL 20 mg/dL (40-60); MAGNESIUM 1.4 mg/dL (1.7-2.9); SODIUM 141 mmol/L (136-145); TOTAL PROTEIN 6.1 g/dL (6.4-8.2); TRIGLYCERIDES 100 mg/dL (0-150); TROPONIN I 0.02 ng/mL (0-1.5); eGFR BLACK RACES > 60 (>60); eGFR NON BLACK RACES > 60 (>60)
[2017-11-12 06:14] LABS: BASOPHILS % (AUTO) 0.8 % (0.2-1.0); EOSINOPHILS # (AUTO) 0.1 x10^3/uL (0.0-0.2); EOSINOPHILS % (AUTO) 3.7 % (0.9-2.9); HEMATOCRIT 31.4 % (36.0-47.0); HEMOGLOBIN 10.4 g/dL (12.0-16.0); LYMPHOCYTES # (AUTO) 0.5 X10^3/uL (1.3-2.9); LYMPHOCYTES % (AUTO) 32.2 % (21.0-51.0); MEAN CORPUSCULAR HEMOGLOBIN 30.2 pg (27.0-34.0); MEAN CORPUSCULAR VOLUME 91.6 fL (80.0-100.0); MEAN PLATELET VOLUME 9.3 fL (7.4-11.0); MONOCYTES # (AUTO) 0.1 x10^3/uL (0.3-0.8); MONOCYTES % (AUTO) 8.7 % (0.0-13.0); NEUTROPHILS # (AUTO) 0.8 x10^3/uL (2.2-4.8); NEUTROPHILS % (AUTO) 54.6 % (42.0-75.0); PLATELET COUNT 53 X10^3/uL (150.0-450.0); RED BLOOD COUNT 3.43 X10^6/uL (3.5-5.4); RED CELL DISTRIBUTION WIDTH 15.9 % (11.6-16.5)
[2017-11-12 06:17] LABS: WHITE BLOOD COUNT 1.4 X10^3/uL (3.6-10.0)
[2017-11-12 06:57] LABS: BAND NEUTROPHILS % 1 % (0-10)
[2017-11-12 06:58] LABS: PLATELET MORPHOLOGY COMMENT ABNORMAL (NORMAL)
[2017-11-12] MEDS: GLUCOTROL PO SCH (07:18)
[2017-11-12] MEDS: PEPCID 20 MG IV PREMIX* 20 MG/50 ML BAG IV SCH ×2 (08:46→21:04)
[2017-11-12] MEDS: ASPIRIN 81 MG CHEWTAB PO SCH (08:46)
[2017-11-12] MEDS: LASIX PO SCH (08:46)
[2017-11-12] MEDS: K-DUR TAB 20 MEQ PO SCH (08:46)
[2017-11-12] MEDS: LIPITOR TAB 40 MG PO SCH (08:46)
[2017-11-12] MEDS: LOPRESSOR TAB 25 MG PO SCH (08:46)
[2017-11-12] MEDS: PLAVIX PO SCH (08:46)
[2017-11-12] MEDS ORDERED: LASIX PO SCH (09:00)
[2017-11-12] MEDS: MAGNESIUM SULFATE 1 GM/100 mL PREMIX 1 GM/100 ML BAG IV PRN ×4 (11:12→14:00)
--- NOTE | 2017-11-12 14:30 | DR.H&P ---
H&P - History & Physical for Day of: H&P Date: 11/11/17 - Chief Complaint Chief Complaint: chest pain - Allergies Allergies/Adverse Reactions: Allergies Allergy/AdvReac Type Severity Reaction Status Date / Time codeine Allergy Verified 11/11/17 16:34 - History of Present Illness History of Present Illness: 57 WF ER ADMITTED AFTER PRESENTING WITH CO CHEST PAIN ONSET X 1 DAY. PT HAS PMH OF CAD WITH LAST HEART CATH 3 MOS WITH STENT PLACEMENT PER DR EASLEY. PT HAS HTN AND COPD. 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 - Family History Family Medical History: Diabetes Mellitus, Coronary Artery Disease, Hypertension - Social History Does patient currently use any type of tobacco product: Yes Have you used tobacco products in the last 12 months: Yes Type of Tobacco Use: Cigarettes How many years tobacco product used: 30 Does any household member use tobacco: No Alcohol Use: Occasionally Drug Use: None - Medications Home Medications: Aspirin [ASPIRIN 81 MG CHEWTAB *] 1 tab PO DAILY 11/11/17 [History Confirmed ] Atorvastatin Calcium 40 mg PO DAILY 11/11/17 [History Confirmed 11/11/17] Citalopram 20 mg Tab [CELEXA 20 MG *] 40 mg PO HS 11/11/17 [History Confirmed ] Clopidogrel Bisulfate [PLAVIX TAB 75 MG *] 75 mg PO DAILY 11/11/17 [History Confirmed 11/11/17] Ferrous Sulfate [Ferosul] 1 tab PO DAILY 11/11/17 [History Confirmed 11/11/17] Furosemide [LASIX TAB 40 MG *] 1 tab PO DAILY 11/11/17 [History Confirmed ] Glipizide 1 tab PO DAILY 11/11/17 [History Confirmed 11/11/17] Memantine HCl [NAMENDA 10 MG *] 1 tab PO BID 11/11/17 [History Confirmed ] Metoprolol Tartrate [LOPRESSOR 25 MG *] 25 mg PO BID 11/11/17 [History Confirmed 11/11/17] Nitroglycerin 1 tab SL PRN PRN 11/11/17 [History Confirmed 11/11/17] Nitroglycerin Sublingual [NITROSTAT SUBLING TAB 0.4 MG *] 0.4 mg PO PRN PRN [History Confirmed 11/11/17] Pantoprazole Sodium 40 mg [PROTONIX 40 MG *] 1 tab PO DAILY 11/11/17 [History Confirmed 11/11/17] - Review of Systems Constitutional: Weakness Eyes: No Symptoms Reported ENT: No Symptoms Reported Respiratory: Shortness of Breath Cardiovascular: Chest Pain Gastrointestinal: No Symptoms Reported Genitourinary: No Symptoms Reported Musculoskeletal: No Symptoms Reported Skin: No Symptoms Reported Neurological: No Symptoms Reported - Physical Exam Vital Signs: Temperature 97.4 F Pulse Rate [Apical] 51 Pulse Rate 61 Respiratory Rate 20 Blood Pressure [Left Arm] 112/56 Blood Pressure 130/61 O2 Sat by Pulse Oximetry 99 Oriented: Normal Eyes: Normal Ear: Normal Nose: Normal Throat: Normal Respiratory: RLL Diminished, LLL Diminished Cardiovascular: Normal. negative: Edema : Normal Auscultation: Bowel Sounds: Normal Palpation: Normal Tenderness: Normal Skin: Decreased Turgur Musculoskeletal: Back:Lumbar Psychiatric: Normal Speech Pattern: Clear - Assessment/Plan (1) Chest pain Qualifiers: Chest pain type: unspecified Qualified Code(s): R07.9 - Chest pain, unspecified Status: Acute Plan: ADMIT, SERIAL CE AND EKGS. BP CONTROL, SUPPLEMENTAL O2. R/O AMI (2) Cholelithiasis Status: Acute (3) Leukopenia Qualifiers: Leukopenia type: neutropenia Neutropenia type: unspecified Qualified Code (s): D70.9 - Neutropenia, unspecified Status: Acute (4) Coronary artery disease Status: Chronic
[2017-11-12] MEDS: HumuLIN R SUBCUT PRN ×2 (16:56→21:41)
[2017-11-12] MEDS ORDERED: SNACK - Diabetic Appropriate PO SCH (20:00)
[2017-11-12] MEDS: CELEXA PO SCH (21:04)
[2017-11-13] MEDS: NS 1000 ML 1,000 ML IV SCH ×2 (02:28→07:26)
[2017-11-13] MEDS: HumuLIN R SUBCUT PRN ×2 (06:06→11:55)
[2017-11-13] MEDS: GLUCOTROL PO SCH (06:07)
[2017-11-13 06:30] LABS: BASOPHILS % (AUTO) 0.8 % (0.2-1.0); EOSINOPHILS % (AUTO) 2.1 % (0.9-2.9); HEMATOCRIT 28.9 % (36.0-47.0); HEMOGLOBIN 9.7 g/dL (12.0-16.0); LYMPHOCYTES # (AUTO) 0.4 X10^3/uL (1.3-2.9); LYMPHOCYTES % (AUTO) 29.9 % (21.0-51.0); MEAN CORPUSCULAR HEMOGLOBIN 30.3 pg (27.0-34.0); MEAN CORPUSCULAR HGB CONC 33.6 g/dL (33.0-35.0); MEAN CORPUSCULAR VOLUME 90.2 fL (80.0-100.0); MEAN PLATELET VOLUME 9.1 fL (7.4-11.0); MONOCYTES # (AUTO) 0.1 x10^3/uL (0.3-0.8); MONOCYTES % (AUTO) 9.5 % (0.0-13.0); NEUTROPHILS # (AUTO) 0.8 x10^3/uL (2.2-4.8); NEUTROPHILS % (AUTO) 57.7 % (42.0-75.0); PLATELET COUNT 53 X10^3/uL (150.0-450.0); RED BLOOD COUNT 3.21 X10^6/uL (3.5-5.4); RED CELL DISTRIBUTION WIDTH 16.6 % (11.6-16.5)
[2017-11-13 06:45] LABS: ALANINE AMINOTRANSFERASE 44 Units/L (12-78); ALBUMIN 2.3 g/dL (3.4-5.0); ALKALINE PHOSPHATASE 260 Units/L (46-116); ASPARTATE AMINO TRANSFERASE 65 Units/L (15-37); BLOOD UREA NITROGEN 7 mg/dL (7-18); CALCIUM 7.9 mg/dL (8.5-10.1); CARBON DIOXIDE 28.2 mmol/L (21-32); CHLORIDE 106 mmol/L (98-107); COR CA(FOR HYPOALB) 9.3 mg/dL (8.5-10.1); COR NA(FOR HYPERGLY) 141 mmol/L (136-145); CREATININE 0.73 mg/dL (0.55-1.02); MAGNESIUM 1.8 mg/dL (1.7-2.9); SODIUM 138 mmol/L (136-145); TOTAL PROTEIN 5.8 g/dL (6.4-8.2); eGFR BLACK RACES > 60 (>60); eGFR NON BLACK RACES > 60 (>60)
[2017-11-13 06:47] LABS: WHITE BLOOD COUNT 1.4 X10^3/uL (3.6-10.0)
[2017-11-13 06:51] LABS: HYPOCHROMASIA 1+; MICROCYTOSIS 1+; PLATELET MORPHOLOGY COMMENT NORMAL (NORMAL)
[2017-11-13] MEDS: K-DUR TAB 20 MEQ PO SCH (08:13)
[2017-11-13] MEDS: ASPIRIN 81 MG CHEWTAB PO SCH (08:13)
[2017-11-13] MEDS: LASIX PO SCH (08:13)
[2017-11-13] MEDS: PLAVIX PO SCH (08:14)
[2017-11-13] MEDS: PEPCID 20 MG IV PREMIX* 20 MG/50 ML BAG IV SCH (08:14)
[2017-11-13] MEDS: LOPRESSOR TAB 25 MG PO SCH (08:14)
[2017-11-13] MEDS: LIPITOR TAB 40 MG PO SCH (08:14)
[2017-11-13 13:21] VITALS: BP 115/56
== END 2017-11-13 15:40 | disposition home or self-care (01) ==
LOC: ER 12:25 → MED/SURG 15:34
PROVIDERS: ADMIT Internal Medicine; ATTEND Internal Medicine
PROC: 3E0234Z Introduction of Serum, Toxoid and Vaccine into Muscle, Percutaneous Approach (ICD-10-PCS; principal; 2017-11-11)
DX: R07.89 Other chest pain (principal); D70.8 Other neutropenia; K80.80 Other cholelithiasis without obstruction; I25.10 Atherosclerotic heart disease of native coronary artery without angina pectoris; R06.02 Shortness of breath; E11.65 Type 2 diabetes mellitus with hyperglycemia; K21.9 Gastro-esophageal reflux disease without esophagitis; I10 Essential (primary) hypertension; R53.83 Other fatigue; J44.9 Chronic obstructive pulmonary disease, unspecified; Z23 Encounter for immunization
CPT/HCPCS: 36415; 71045; 71275; 80053; 80061; 81001; 82150; 82550; 82553; 83690; 83735; 84484; 85025; 85378; 85610; 85730; 90686; 93005; 93010; 94760; 96365; 99284; A4222; S0028; G0378; J1815; J2405; J2550

== ENCOUNTER 2018-01-12 23:01 | Inpatient (IN) | payer SELFPAY ==
--- NOTE | 2018-01-12 23:48 | DR.GENAD ---
HPI - PCP Primary Care Physician: MICHAEL PANTOJA/ DR. ACEVEDO - HPI Comment HPI Comment: PATIENT IS HAVING ABDOMINAL PAIN FOR FEW MONTHS. 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 PATIENT IS HAVING RESPIRATORY DISTRESS BECAUSE OF ABDOMINAL DISTENSION. - Complaint/Symptoms Chief Complaint Doctors Comments: PATIENT IS HAVING INCREASING ABDOMINAL PAIN AND DISTENSION TIMES FEW DAYS ASSOCIATED WITH SOB. Chief Complaint:: ABDOMINAL PAIN, SWELLING, ABOUT 2 MONTHS. GASTOLOGIST DESIRE MURRAY WANTED TO RUN SOME TESTS - Nurses notes reviewed Nurses Notes Review: Yes - Source History Provided: Patient - Mode of Arrival Mode of Arrival: Ambulatory - Timing Onset of Chief Complaint: 01/12/18 Came on: Suddenly - Duration Duration: Constant Duration: Hours - Severity Severity: Moderate PMH - PMH Past Medical History: Yes Past Medical History: Anxiety, Depression, Diabetes, Hypertension, [place] Past Surgical History: Yes Surgical History: Angioplasty/Stents Past Surgical History Comment: D/C LONG TIME AGO - Family History History of Family Medical Conditions: Yes Family Medical History: Diabetes Mellitus, [place], Sudden Cardiac - Social History Does patient currently use any type of tobacco product: Yes Have you used tobacco products in the last 12 months: Yes Type of Tobacco Use: Cigars Alcohol Use: Occasionally Do you use any recreational Drugs:: No Lives With: Spouse Lives Where: Home - infectious screening In the last 2 months have you had wt loss of >10#?: NO Have you had fever, night sweats or hemotysis?: No Have you traveled outside the country in the last 6 months?: No Isolation: Standard ROS - Review of Systems Constitutional: Weakness, Fatigue. negative: Chills, Diaphoresis, Fever Eyes: No Symptoms Reported. negative: Blurred Vision, Photophobia ENTM: No Symptoms Reported. negative: Ear Pain, Nose Discharge, Nose Congestion , Throat Pain Respiratoy: Non-Productive Cough, Short of Breath. negative: Wheezing, Hemoptysis Cardiovascular: Chest Pain. negative: Edema, Syncope Gastrointestinal/Abdominal: Abdominal Pain. negative: Nausea, Vomiting Genitourinary: No Symptoms Reported, Frequency. negative: Dysuria, Hematuria Neurological: Weakness. negative: Headache, Dizziness Musculoskeletal: Muscle Pain Integumentary: No Symptoms Reported Hematologic/Lymphatic: No Symptoms Reported, Easy Bleeding, Easy Bruising Endocrine: No Symptoms Reported All Other Systems: Reviewed and Negative PE - Vital Signs Vitals: Temperature 98.7 F Pulse Rate 93 Respiratory Rate 18 Blood Pressure [Left Arm] 115/56 Blood Pressure 124/65 O2 Sat by Pulse Oximetry 98 - General Limitations: No Limitations General Appearance: Alert - Head Head Exam: Normal Inspection - Eyes Eye exam: Normal Appearance - ENT ENT Exam: Normal External Ear Exam TM/Canal Exam: Bilateral Normal Nose Exam: Normal Nose Exam Mouth Exam: Normal Inspection Throat Exam: Normal Inspection - Neck Neck Exam: Trachea Midline - Chest Chest Inspection: Symmetric Chest Wall Rise - Respiratory Respiratory Exam: Normal Lung Sounds Bilat Respiratory Exam: Bilateral Clear to Auscultation - Cardiovascular Cardiovascular Exam: Regular Rate, Normal Rhythm, Normal Heart Sounds - Abdominal Exam Abdominal Exam: Normal Bowel Sounds, Soft. negative: Distention - Extremities Extremities Exam: negative: Calf Tenderness - Back Back Exam: Normal Inspection - Neurologic Neurological Exam: Alert, Oriented X3 - Psychiatric Psychiatric Exam: Normal Affect, Normal Mood MDM - Additional Information Additional Information Obtained From: Family - Differential Diagnosis Differential Diagnosis: ABDOMINAL PAIN, SOB, BOWEL OBSTRUCTION, DIVERTICULITIS Course - Treatment Treatment: SEE ORSERS. - Consultation Consultation Comments: DISCUSS PATIENT WITH DR. ACEVEDO. HE WILL ADMIT PATIENT - Education/Counseling Education/Counseling: Patient, Family, Education Educated On: Diagnosis, Needs for Follow Up ROR - Labs Reviewed Laboratory Results Reviewed?: Yes Result Diagrams: 01/14/18 05:16 01/14/18 05:16 Laboratory: WBC 1.9 X10^3/uL (3.6-10.0) L* 01/13/18 00:20 RBC 3.72 X10^6/uL (3.5-5.4) 01/13/18 00:20 Hgb 11.3 g/dL (12.0-16.0) L 01/13/18 00:20 Hct 33.7 % (36.0-47.0) L 01/13/18 00:20 MCV 90.8 fL (80.0-100.0) 01/13/18 00:20 MCH 30.3 pg (27.0-34.0) 01/13/18 00:20 MCHC 33.4 g/dL (33.0-35.0) 01/13/18 00:20 RDW 18.1 % (11.6-16.5) H 01/13/18 00:20 Plt Count 63 X10^3/uL (150.0-450.0) L 01/13/18 00:20 Plt Count Comment Decreased (ADEQUATE) A 01/13/18 00:20 MPV 8.7 fL (7.4-11.0) 01/13/18 00:20 Neut % (Auto) 59.2 % (42.0-75.0) 01/13/18 00:20 Lymph % (Auto) 30.0 % (21.0-51.0) 01/13/18 00:20 [place] % (Auto) 7.8 % (0.0-13.0) 01/13/18 00:20 Eos % (Auto) 2.1 % (0.9-2.9) 01/13/18 00:20 Baso % (Auto) 0.9 % (0.2-1.0) 01/13/18 00:20 Neut # (Auto) 1.1 x10^3/uL (2.2-4.8) L 01/13/18 00:20 Lymph # (Auto) 0.6 X10^3/uL (1.3-2.9) L 01/13/18 00:20 [place] # (Auto) 0.2 x10^3/uL (0.3-0.8) L 01/13/18 00:20 Eos # (Auto) 0.0 x10^3/uL (0.0-0.2) 01/13/18 00:20 Baso # (Auto) 0.0 X10^3/uL (0.0-0.1) 01/13/18 00:20 Absolute Nucleated RBC 0.3 /100WBC 01/13/18 00:20 Total Counted 50 01/13/18 00:20 Neutrophils % (Manual) 52 % (39-76) 01/13/18 00:20 Band Neutrophils % 8 % (0-10) 01/13/18 00:20 Lymphocytes % (Manual) 28 % (13-43) 01/13/18 00:20 Monocytes % (Manual) 10 % (4-9) H 01/13/18 00:20 Eosinophils % (Manual) 2 % (0-6) 01/13/18 00:20 Plt Morphology Comment Normal (NORMAL) 01/13/18 00:20 RBC Morphology Normal (NORMAL) 01/13/18 00:20 Sodium 138 mmol/L (136-145) 01/13/18 00:20 Corrected Sodium 144 mmol/L (136-145) 01/13/18 00:20 Potassium 2.9 mmol/L (3.5-5.1) L* 01/13/18 00:20 Chloride 101 mmol/L (98-107) 01/13/18 00:20 Carbon Dioxide 28.8 mmol/L (21-32) 01/13/18 00:20 BUN 3 mg/dL (7-18) L 01/13/18 00:20 Creatinine 0.81 mg/dL (0.55-1.02) 01/13/18 00:20 Est GFR (MDRD) Af Amer > 60 (>60) 01/13/18 00:20 Est GFR (MDRD) Non-Af > 60 (>60) 01/13/18 00:20 Glucose 354 mg/dL (65-99) H 01/13/18 00:20 Lactic Acid 3.0 mmol/L (0.4-2.0) H 01/13/18 00:20 Calcium 8.1 mg/dL (8.5-10.1) L 01/13/18 00:20 Corrected Calcium 9.0 mg/dL (8.5-10.1) 01/13/18 00:20 Total Bilirubin 0.90 mg/dL (0.2-1.0) 01/13/18 00:20 AST 79 Units/L (15-37) H 01/13/18 00:20 ALT 54 Units/L (12-78) 01/13/18 00:20 Alkaline Phosphatase 370 Units/L (46-116) H 01/13/18 00:20 Creatine Kinase 101 Units/L (26-192) 01/13/18 00:20 CK-MB (CK-2) < 1.0 ng/mL (0-4.0) 01/13/18 00:20 CK/CKMB % Calc 1.0 % (<4) 01/13/18 00:20 Troponin I < 0.02 ng/mL (0-1.5) 01/13/18 00:20 C-Reactive Protein 8.80 mg/L (0-3.0) H 01/13/18 00:20 Total Protein 7.4 g/dL (6.4-8.2) 01/13/18 00:20 Albumin 2.9 g/dL (3.4-5.0) L 01/13/18:20 Globulin 4.5 g/dL (2.5-4.5) 01/13/18 00:20 Albumin/Globulin Ratio 0.6 Ratio (1.1-2.1) L 01/13/18:20 Amylase 32 Units/L (25-115) 01/13/18:20 Lipase 225 Units/L (73-393) 01/13/18 00:20 Specimen Type Clean catch urine 01/13/18 00:21 Urine Color Yellow (YELLOW) 01/13/18: Urine Appearance Clear (CLEAR) 01/13/18: Urine pH 6.5 (5.0 - 8.0) 01/13/18 00:21 Ur Specific [place] 1.010 (1.000-1.030) 01/13/18 00: Urine Protein Negative (NEGATIVE) 01/13/18: Urine Glucose (UA) 4+ (NEGATIVE) 01/13/18 00: Urine Ketones Negative (NEGATIVE) 01/13/18 00: Urine Occult Blood 3+ (NEGATIVE) 01/13/18 00: Urine Nitrite Negative (NEGATIVE) 01/13/18: Urine Bilirubin Negative (NEGATIVE) 01/13/18 00: Urine Urobilinogen 2+ (NORMAL) 01/13/18 00: Ur Leukocyte Esterase Negative (NEGATIVE) 01/13/18 00: Urine RBC 0-2 /HPF (NONE SEEN) 01/13/18: Urine WBC 0-2 /HPF (NONE SEEN) 01/13/18 00: Ur Squamous Epith Cells Few /HPF (NEGATIVE) 01/13/18 00: Amorphous Sediment 1+ /HPF (NEGATIVE) 01/13/18 00: Urine Bacteria 1+ /HPF (NEGATIVE) 01/13/18: Ur Culture Indicated? No/not indicated 01/13/18 00: Acetone, Semi-Quant Negative (NEGATIVE) 01/13/18 00:20 - XRAY XRAY Interpreted by: Radiologist XRAY Findings: REPORT DISCUSS WITH PATIENT AND FAMILY. - EKG [place]: Normal Rhythm: NSR - Diagnosis Discharge Problem: Thrombocytopenia, Hypokalemia, Pancytopenia Cholelithiasis Qualifiers: Cholelithiasis location: gallbladder Cholecystitis presence: without cholecystitis Biliary obstruction: with biliary obstruction Qualified Code(s): K80.21 - Calculus of gallbladder without cholecystitis with obstruction Leukopenia Qualifiers: Leukopenia type: unspecified Qualified Code(s): D72.819 - Decreased white blood cell count, unspecified - Discharge Plan Disposition: 09 ADMITTED INPATIENT Condition: Stable - Follow ups/Referrals - Instructions
[2018-01-12] MEDS ORDERED: ZOFRAN INJ 4 MG VIAL IVP ONE (23:52)
[2018-01-12] MEDS ORDERED: NS 1000 ML 1,000 ML IV ONE (23:53)
[2018-01-12] MEDS ORDERED: NS 1000 ML 1,000 ML ONE (23:58)
[2018-01-12] MEDS ORDERED: ZOFRAN INJ 4 MG VIAL ONE (23:59)
[2018-01-13 00:34] LABS: BILIRUBIN,URINE NEGATIVE (NEGATIVE); BLOOD/HEMOGLOBIN,URINE 3+ (NEGATIVE); GLUCOSE, URINE 4+ (NEGATIVE); KETONES,URINE NEGATIVE (NEGATIVE); LEUKOCYTE ESTERASE ,URINE NEGATIVE (NEGATIVE); NITRITES,URINE NEGATIVE (NEGATIVE); PH,URINE 6.5 (5.0 - 8.0); PROTEIN,URINE NEGATIVE (NEGATIVE); UROBILINOGEN,URINE 2+ (NORMAL)
--- NOTE | 2018-01-13 00:55 | CT ---
CT abdomen and pelvis without contrast Indication: Abdominal pain and swelling Comparison: 06/17/2017 Technique: Multiple axial images of the abdomen and pelvis were obtained from the lung bases to the pubic symphy sis without the administration of IV contrast. Findings: The lung bases are clear. The liver has a borderline cirrhotic morphology without focal hepatic lesio n identified given the limitations of a noncontrast examination. Several calcified gallstones are not ed nondistended gallbladder. Moderate amount of perihepatic and perisplenic free fluid. Bile ducts ar e normal in caliber. The spleen is enlarged measuring approximately 14 cm in greatest dimension. No f ocal splenic lesion. The gallbladder is unremarkable. Suspected diverticulum within the 3rd portion d uodenum for example on axial image 33. Adrenal glands are normal. Neither kidney demonstrates evidenc e of nephrolithiasis, hydronephrosis or mass. Upper GI tract demonstrates a small sliding hiatal louise ia and distal esophageal thickening. Remaining upper GI tract is without evidence of mass or obstruct ion. Urinary bladder is unremarkable. No pelvic or adnexal mass. The rectum and colon are unremarkabl e. The appendix is not well visualized. Moderate amount pelvic free fluid. Abdominal aorta is normal in caliber with scattered calcified atherosclerotic disease. Shotty lymph nodes are noted within the retroperitoneum, no definite enlarged peritoneal or retroperitoneal lymphadenopathy. Review of bone w indows demonstrates no acute osseous abnormality. Impression: 1.Moderate amount of free fluid within the abdomen and pelvis with a borderline cirrhotic morphology and splenomegaly likely represents chronic liver disease with decompensation. 2. Suspected diverticulum within the 3rd portion duodenum without definite evidence of surrounding in flammatory change to suggest acute duodenitis. 3. Cholelithiasis within a nondistended gallbladder. 4. Small sliding hiatal hernia with distal esophageal thickening likely represents esophagitis in set ting of chronic gastroesophageal reflux disease however clinical correlation is recommended. Reported By:
[2018-01-13 00:57] LABS: BLOOD UREA NITROGEN 3 mg/dL (7-18); CALCIUM 8.1 mg/dL (8.5-10.1); CARBON DIOXIDE 28.8 mmol/L (21-32); CHLORIDE 101 mmol/L (98-107); COR NA(FOR HYPERGLY) 144 mmol/L (136-145); CREATININE 0.81 mg/dL (0.55-1.02); SODIUM 138 mmol/L (136-145); eGFR BLACK RACES > 60 (>60); eGFR NON BLACK RACES > 60 (>60)
[2018-01-13 01:03] LABS: ALANINE AMINOTRANSFERASE 54 Units/L (12-78); ALBUMIN 2.9 g/dL (3.4-5.0); ALKALINE PHOSPHATASE 370 Units/L (46-116); AMYLASE 32 Units/L (25-115); ASPARTATE AMINO TRANSFERASE 79 Units/L (15-37); LIPASE 225 Units/L (73-393); TOTAL PROTEIN 7.4 g/dL (6.4-8.2)
[2018-01-13 01:05] LABS: APPEARANCE,URINE CLEAR (CLEAR); COLOR,URINE YELLOW (YELLOW)
[2018-01-13 01:06] LABS: AMORPHOUS SEDIMENT,UR 1+ /HPF (NEGATIVE); BACTERIA,URINE 1+ /HPF (NEGATIVE); RBC,URINE 0-2 /HPF (NONE SEEN); SQUAMOUS EPITHELIAL CELL,UR FEW /HPF (NEGATIVE)
[2018-01-13 01:06] LABS: LYMPHOCYTES # (AUTO) 0.6 X10^3/uL (1.3-2.9); MEAN CORPUSCULAR VOLUME 90.8 fL (80.0-100.0); MONOCYTES % (AUTO) 7.8 % (0.0-13.0); NEUTROPHILS # (AUTO) 1.1 x10^3/uL (2.2-4.8); RED BLOOD COUNT 3.72 X10^6/uL (3.5-5.4); RED CELL DISTRIBUTION WIDTH 18.1 % (11.6-16.5)
[2018-01-13 01:11] LABS: BASOPHILS % (AUTO) 0.9 % (0.2-1.0); EOSINOPHILS % (AUTO) 2.1 % (0.9-2.9); HEMATOCRIT 33.7 % (36.0-47.0); HEMOGLOBIN 11.3 g/dL (12.0-16.0); MEAN CORPUSCULAR HEMOGLOBIN 30.3 pg (27.0-34.0); MEAN CORPUSCULAR HGB CONC 33.4 g/dL (33.0-35.0); MEAN PLATELET VOLUME 8.7 fL (7.4-11.0); MONOCYTES # (AUTO) 0.2 x10^3/uL (0.3-0.8); NEUTROPHILS % (AUTO) 59.2 % (42.0-75.0); PLATELET COUNT 63 X10^3/uL (150.0-450.0)
[2018-01-13 01:16] LABS: WHITE BLOOD COUNT 1.9 X10^3/uL (3.6-10.0)
[2018-01-13 01:17] LABS: CREATINE KINASE 101 Units/L (26-192); CREATINE KINASE MB < 1.0 ng/mL (0-4.0); TROPONIN I < 0.02 ng/mL (0-1.5)
[2018-01-13 01:28] LABS: BAND NEUTROPHILS % 8 % (0-10); PLATELET MORPHOLOGY COMMENT NORMAL (NORMAL)
[2018-01-13] MEDS ORDERED: K-LYTE EFFERVESCENT PO ONE (01:38)
[2018-01-13] MEDS ORDERED: K-LYTE EFFERVESCENT ONE (01:49)
[2018-01-13] MEDS ORDERED: LASIX IVP ONE (03:41)
[2018-01-13] MEDS: ZOFRAN INJ 4 MG VIAL IVP PRN (03:54)
[2018-01-13 06:18] LABS: BASOPHILS % (AUTO) 0.5 % (0.2-1.0); EOSINOPHILS % (AUTO) 2.3 % (0.9-2.9); HEMATOCRIT 32.3 % (36.0-47.0); HEMOGLOBIN 10.9 g/dL (12.0-16.0); LYMPHOCYTES # (AUTO) 0.4 X10^3/uL (1.3-2.9); LYMPHOCYTES % (AUTO) 26.9 % (21.0-51.0); MEAN CORPUSCULAR HEMOGLOBIN 30.4 pg (27.0-34.0); MEAN CORPUSCULAR HGB CONC 33.7 g/dL (33.0-35.0); MEAN CORPUSCULAR VOLUME 90.2 fL (80.0-100.0); MEAN PLATELET VOLUME 8.1 fL (7.4-11.0); MONOCYTES # (AUTO) 0.1 x10^3/uL (0.3-0.8); MONOCYTES % (AUTO) 8.4 % (0.0-13.0); NEUTROPHILS # (AUTO) 0.9 x10^3/uL (2.2-4.8); NEUTROPHILS % (AUTO) 61.9 % (42.0-75.0); PLATELET COUNT 59 X10^3/uL (150.0-450.0); RED BLOOD COUNT 3.59 X10^6/uL (3.5-5.4)
[2018-01-13 06:34] LABS: WHITE BLOOD COUNT 1.5 X10^3/uL (3.6-10.0)
[2018-01-13 06:37] LABS: ALANINE AMINOTRANSFERASE 49 Units/L (12-78); ALBUMIN 2.8 g/dL (3.4-5.0); ALKALINE PHOSPHATASE 341 Units/L (46-116); ASPARTATE AMINO TRANSFERASE 64 Units/L (15-37); BLOOD UREA NITROGEN 3 mg/dL (7-18); CALCIUM 7.9 mg/dL (8.5-10.1); CARBON DIOXIDE 28.8 mmol/L (21-32); CHLORIDE 101 mmol/L (98-107); COR CA(FOR HYPOALB) 8.9 mg/dL (8.5-10.1); COR NA(FOR HYPERGLY) 144 mmol/L (136-145); CREATININE 0.85 mg/dL (0.55-1.02); SODIUM 139 mmol/L (136-145); TOTAL PROTEIN 6.9 g/dL (6.4-8.2); eGFR BLACK RACES > 60 (>60); eGFR NON BLACK RACES > 60 (>60)
[2018-01-13 07:21] LABS: PLATELET MORPHOLOGY COMMENT NORMAL (NORMAL)
[2018-01-13] MEDS: HumuLIN R SUBCUT PRN ×4 (07:48→20:50)
[2018-01-13] MEDS: LASIX IVP SCH ×3 (07:50→20:47)
[2018-01-13] MEDS: PEPCID 20 MG IV PREMIX* 20 MG/50 ML BAG IV PRN (07:50)
[2018-01-13] MEDS: K-DUR TAB 20 MEQ PO SCH ×3 (07:50→20:47)
[2018-01-13] MEDS ORDERED: K-DUR TAB 20 MEQ PO SCH (09:00)
[2018-01-13] MEDS ORDERED: HumuLIN R ONE (12:13)
[2018-01-13 15:59] VITALS: BMI 31.8
--- NOTE | 2018-01-13 18:09 | DR.H&P ---
H&P - History & Physical for Day of: H&P Date: 01/13/18 - Chief Complaint Chief Complaint: ABDOMINAL PAIN, SWELLING - Allergies Allergies/Adverse Reactions: Allergies Allergy/AdvReac Type Severity Reaction Status Date / Time codeine Allergy Verified 01/13/18 15:45 - History of Present Illness History of Present Illness: 57 WF ER ADMIT WITH CO ABDOMINAL PAIN AND SWELLING. PT HAD CT ABD PELVIS REVEALING ASCITES. PT HAS PMH OF CHOLELITHIASIS, CHF, CAD, COPD, OA. PT ADMITTED FOR EVALUATION AND TREATMENT OF ABDOMINAL PAIN, EDEMA, SOB. - Past Medical History Past Medical History: Anxiety, Cirrhosis, Depression, Diabetes, Hypertension, [place] - Past Surgical History Surgical History: Angioplasty/Stents - Family History Family Medical History: Diabetes Mellitus, [place], Sudden Cardiac - Social History Does patient currently use any type of tobacco product: Yes Have you used tobacco products in the last 12 months: Yes Type of Tobacco Use: Cigars How many years tobacco product used: 15 Does any household member use tobacco: No Alcohol Use: Occasionally Drug Use: None - Medications Home Medications: Insulin Detemir (Levemir) [LEVEMIR INSULIN *] 30 units SQ HS 01/13/18 [History Confirmed 01/13/18] Insulin Lispro (Humalog) [HumaLOG INSULIN 10 ML VIAL *] 0 unit SQ PRN PRN [History Confirmed 01/13/18] Tramadol HCl 1 tab PO TID PRN 01/13/18 [History Confirmed 01/13/18] - Review of Systems Constitutional: Malaise Eyes: No Symptoms Reported ENT: No Symptoms Reported Respiratory: Shortness of Breath Cardiovascular: Edema Gastrointestinal: Nausea Genitourinary: No Symptoms Reported Musculoskeletal: Back Pain, Leg Pain Skin: No Symptoms Reported Neurological: No Symptoms Reported - Physical Exam Vital Signs: Temperature 97.3 F Pulse Rate [Right Brachial] 90 Pulse Rate [Left Radial] 100 Pulse Rate 93 Respiratory Rate 18 Blood Pressure [Right Arm] 113/55 Blood Pressure [Left Arm] 135/69 Blood Pressure 124/65 O2 Sat by Pulse Oximetry 95 Oriented: Normal Eyes: Normal Ear: Normal Nose: Normal Throat: Normal Respiratory: RLL Diminished, LLL Diminished Cardiovascular: Normal, Edema : Normal Auscultation: Bowel Sounds: Decreased Palpation: Spleen Enlarged, Liver Enlarged Tenderness: Diffuse Skin: Normal Musculoskeletal: Back:Thoracic, Back:Lumbar Psychiatric: Normal Speech Pattern: Clear, Appropriate - Assessment/Plan (1) Abdominal pain Status: Acute Plan: ADMIT, STRICT I& OS. IV LASIX, SUPPLEMENTAL O2. LACTULOSE, REPEAT AM AMMONIA, CBC CMP. CLEAR LIQUID DIET, BLEEDING PRECAUTIONS. PAIN AND NAUSEA CONTROL, BP AND CARDIAC MONITORING (2) CHF (congestive heart failure) Status: Acute (3) Cirrhosis of liver Status: Acute (4) Cholelithiasis Qualifiers: Cholelithiasis location: gallbladder Cholecystitis presence: without cholecystitis Biliary obstruction: with biliary obstruction Qualified Code(s ): K80.21 - Calculus of gallbladder without cholecystitis with obstruction Status: Acute (5) Leukopenia Qualifiers: Leukopenia type: unspecified Qualified Code(s): D72.819 - Decreased white blood cell count, unspecified Status: Acute (6) Pancytopenia Status: Acute (7) Coronary artery disease Status: Chronic
[2018-01-13] MEDS: CHRONULAC PO SCH (18:35)
[2018-01-13] MEDS: SNACK - Diabetic Appropriate PO SCH (21:22)
[2018-01-14] MEDS: HumuLIN R SUBCUT PRN ×4 (05:36→21:45)
[2018-01-14 05:53] LABS: BASOPHILS % (AUTO) 0.4 % (0.2-1.0); EOSINOPHILS % (AUTO) 1.8 % (0.9-2.9); HEMATOCRIT 29.1 % (36.0-47.0); HEMOGLOBIN 9.9 g/dL (12.0-16.0); LYMPHOCYTES # (AUTO) 0.5 X10^3/uL (1.3-2.9); LYMPHOCYTES % (AUTO) 34.6 % (21.0-51.0); MEAN CORPUSCULAR HEMOGLOBIN 30.4 pg (27.0-34.0); MEAN CORPUSCULAR HGB CONC 33.8 g/dL (33.0-35.0); MEAN PLATELET VOLUME 8.5 fL (7.4-11.0); MONOCYTES # (AUTO) 0.1 x10^3/uL (0.3-0.8); MONOCYTES % (AUTO) 9.5 % (0.0-13.0); NEUTROPHILS # (AUTO) 0.7 x10^3/uL (2.2-4.8); NEUTROPHILS % (AUTO) 53.7 % (42.0-75.0); PLATELET COUNT 51 X10^3/uL (150.0-450.0); RED BLOOD COUNT 3.24 X10^6/uL (3.5-5.4); RED CELL DISTRIBUTION WIDTH 17.7 % (11.6-16.5)
[2018-01-14 05:57] LABS: ALANINE AMINOTRANSFERASE 39 Units/L (12-78); ALBUMIN 2.5 g/dL (3.4-5.0); ALKALINE PHOSPHATASE 292 Units/L (46-116); ASPARTATE AMINO TRANSFERASE 48 Units/L (15-37); BLOOD UREA NITROGEN 6 mg/dL (7-18); CALCIUM 7.7 mg/dL (8.5-10.1); CARBON DIOXIDE 31.3 mmol/L (21-32); CHLORIDE 103 mmol/L (98-107); COR CA(FOR HYPOALB) 8.9 mg/dL (8.5-10.1); COR NA(FOR HYPERGLY) 145 mmol/L (136-145); CREATININE 0.79 mg/dL (0.55-1.02); SODIUM 142 mmol/L (136-145); TOTAL PROTEIN 6.2 g/dL (6.4-8.2); eGFR BLACK RACES > 60 (>60); eGFR NON BLACK RACES > 60 (>60)
[2018-01-14 06:14] LABS: WHITE BLOOD COUNT 1.3 X10^3/uL (3.6-10.0)
[2018-01-14] MEDS ORDERED: POTASSIUM CHLORIDE LIQ 20 MEQ UDC PO PRN (06:14)
[2018-01-14] MEDS ORDERED: POTASSIUM CHL 40 MEQ/NS 0.45% 500 ML IV PRN (06:14)
[2018-01-14] MEDS ORDERED: K-RIDER 10 MEQ/NS 100 ML 10 MEQ/100 ML BAG IV PRN (06:14)
[2018-01-14] MEDS ORDERED: POTASSIUM CHL 60 MEQ/NS 0.45% 500 ML IV PRN (06:14)
[2018-01-14 06:15] LABS: BAND NEUTROPHILS % 0 % (0-10)
[2018-01-14 06:16] LABS: HYPOCHROMASIA SLIGHT; PLATELET MORPHOLOGY COMMENT NORMAL (NORMAL)
[2018-01-14] MEDS ORDERED: NS 250 ML IV 250 ML IV ONE (06:42)
[2018-01-14] MEDS: MAGNESIUM SULFATE 1 GM/100 mL PREMIX 1 GM/100 ML BAG IV PRN (06:49)
[2018-01-14] MEDS: LASIX IVP SCH ×2 (09:33→21:44)
[2018-01-14] MEDS: K-DUR TAB 20 MEQ PO SCH ×2 (09:33→21:44)
[2018-01-14] MEDS: CHRONULAC PO SCH (09:33)
--- NOTE | 2018-01-14 14:37 | PCM.PROG ---
Progress Note - Progress Note for Day of Date: 01/14/18 - Subjective Subjective: 57 WF ADMITTED ON 01/13 WITH ABDOMINAL PAIN AND SOB. PT HAS HX OF CHF , CAD, COPD. PT ON IV LASIX, AMMONIA LEVEL SLIGHTLY ELEVATED PT TREATED WITH LACTULOSE. PT REPORT IMPROVED SOB THIS AM. PT CONTINUES WITH LEUKOPENIA. PT IS CURRENTLY ON REVERSE ISOLATION. WILL HAVE CBC WITH PERIPHERAL SMEAR AND PATHOLOGY - Past Medical Family Social History Allergies: Allergies codeine Allergy (Verified 01/13/18 15:45) - Review of Systems ROS: No change since H&P - Vital Signs and I&O's Vital Signs: Temperature 98.4 F Pulse Rate [Right Brachial] 104 Pulse Rate [Left Radial] 100 Pulse Rate 93 Respiratory Rate 20 Blood Pressure [Right Arm] 124/78 Blood Pressure [Left Arm] 135/69 Blood Pressure 124/65 O2 Sat by Pulse Oximetry 100 Intake and Output: Intake & Output 01/12/18 01/13/18 01/14/18 01/15/18 11:59 11:59 11:59 11:59 Intake Total 30 Balance 30 - Physical Exam Oriented: Normal Eyes: Normal Ear: Normal Nose: Normal Throat: Normal Cardiovascular: Normal, Edema : Normal Auscultation: Bowel Sounds: Decreased Tenderness: Diffuse Skin: Normal Musculoskeletal: Back:Thoracic, Back:Lumbar Psychiatric: Normal Speech Pattern: Clear, Appropriate - Laboratory and Diagnostics Result Diagrams: 01/14/18 05:16 01/14/18 05:16 Labs: 01/13/18 00:20 Urine,Clean Catch Urine Culture - Preliminary Laboratory WBC 1.3 X10^3/uL (3.6-10.0) L* 01/14/18 05:16 RBC 3.24 X10^6/uL (3.5-5.4) L 01/14/18 05:16 Hgb 9.9 g/dL (12.0-16.0) L 01/14/18 05:16 Hct 29.1 % (36.0-47.0) L 01/14/18 05:16 MCV 90.0 fL (80.0-100.0) 01/14/18 05:16 MCH 30.4 pg (27.0-34.0) 01/14/18 05:16 MCHC 33.8 g/dL (33.0-35.0) 01/14/18 05:16 RDW 17.7 % (11.6-16.5) H 01/14/18 05:16 Plt Count 51 X10^3/uL (150.0-450.0) L 01/14/18 05:16 Plt Count Comment Decreased (ADEQUATE) A 01/14/18 05:16 MPV 8.5 fL (7.4-11.0) 01/14/18 05:16 Neut % (Auto) 53.7 % (42.0-75.0) 01/14/18 05:16 Lymph % (Auto) 34.6 % (21.0-51.0) 01/14/18 05:16 [place] % (Auto) 9.5 % (0.0-13.0) 01/14/18 05:16 Eos % (Auto) 1.8 % (0.9-2.9) 01/14/18 05:16 Baso % (Auto) 0.4 % (0.2-1.0) 01/14/18 05:16 Neut # (Auto) 0.7 x10^3/uL (2.2-4.8) L 01/14/18 05:16 Lymph # (Auto) 0.5 X10^3/uL (1.3-2.9) L 01/14/18 05:16 [place] # (Auto) 0.1 x10^3/uL (0.3-0.8) L 01/14/18 05:16 Eos # (Auto) 0.0 x10^3/uL (0.0-0.2) 01/14/18 05:16 Baso # (Auto) 0.0 X10^3/uL (0.0-0.1) 01/14/18 05:16 Absolute Nucleated RBC 0.2 /100WBC 01/14/18 05:16 Total Counted 50 01/14/18 05:16 Neutrophils % (Manual) 51 % (39-76) 01/14/18 05:16 Band Neutrophils % 0 % (0-10) 01/14/18 05:16 Lymphocytes % (Manual) 37 % (13-43) 01/14/18 05:16 Monocytes % (Manual) 10 % (4-9) H 01/14/18 05:16 Eosinophils % (Manual) 2 % (0-6) 01/14/18 05:16 Plt Morphology Comment Normal (NORMAL) 01/14/18 05:16 RBC Morphology Abnormal (NORMAL) A 01/14/18 05:16 Hypochromasia Slight A 01/14/18 05:16 INR Target Range - 01/13/18 09:30 INR 1.10 (0.8-1.3) 01/13/18 09:30 APTT 23.9 SECONDS (22.9-36.5) 01/13/18 09:30 PTT Comment - 01/13/18 09:30 Sodium 142 mmol/L (136-145) 01/14/18 05:16 Corrected Sodium 145 mmol/L (136-145) 01/14/18 05:16 Potassium 3.2 mmol/L (3.5-5.1) L 01/14/18 05:16 Chloride 103 mmol/L (98-107) 01/14/18 05:16 Carbon Dioxide 31.3 mmol/L (21-32) 01/14/18 05:16 BUN 6 mg/dL (7-18) L 01/14/18 05:16 Creatinine 0.79 mg/dL (0.55-1.02) 01/14/18 05:16 Est GFR (MDRD) Af Amer > 60 (>60) 01/14/18 05:16 Est GFR (MDRD) Non-Af > 60 (>60) 01/14/18 05:16 Glucose 237 mg/dL (65-99) H 01/14/18 05:16 POC Glucose (mg/dL) 324 mg/dL (65-99) H 01/14/18 12:24 Hemoglobin A1c 9.0 % 01/13/18 09:35 Lactic Acid 3.0 mmol/L (0.4-2.0) H 01/13/18 00:20 Calcium 7.7 mg/dL (8.5-10.1) L 01/14/18 05:16 Corrected Calcium 8.9 mg/dL (8.5-10.1) 01/14/18 05:16 Magnesium 1.2 mg/dL (1.7-2.9) L 01/14/18 05:16 Total Bilirubin 0.80 mg/dL (0.2-1.0) 01/14/18 05:16 AST 48 Units/L (15-37) H 01/14/18 05:16 ALT 39 Units/L (12-78) 01/14/18 05:16 Alkaline Phosphatase 292 Units/L (46-116) H 01/14/18 05:16 Ammonia 45 umol/L (11-32) H 01/13/18 09:30 Creatine Kinase 101 Units/L (26-192) 01/13/18 00:20 CK-MB (CK-2) < 1.0 ng/mL (0-4.0) 01/13/18 00:20 CK/CKMB % Calc 1.0 % (<4) 01/13/18 00:20 Troponin I < 0.02 ng/mL (0-1.5) 01/13/18 00:20 C-Reactive Protein 8.80 mg/L (0-3.0) H 01/13/18 00:20 Total Protein 6.2 g/dL (6.4-8.2) L 01/14/18 05:16 Albumin 2.5 g/dL (3.4-5.0) L 01/14/18 05:16 Globulin 3.7 g/dL (2.5-4.5) 01/14/18 05:16 Albumin/Globulin Ratio 0.7 Ratio (1.1-2.1) L 01/14/18 05:16 Amylase 32 Units/L (25-115) 01/13/18 00:20 Lipase 225 Units/L (73-393) 01/13/18 00:20 Specimen Type Clean catch urine 01/13/18 00:21 Urine Color Yellow (YELLOW) 01/13/18 00:21 Urine Appearance Clear (CLEAR) 01/13/18 00:21 Urine pH 6.5 (5.0 - 8.0) 01/13/18 00:21 Ur Specific [place] 1.010 (1.000-1.030) 01/13/18 00:21 Urine Protein Negative (NEGATIVE) 01/13/18 00:21 Urine Glucose (UA) 4+ (NEGATIVE) 01/13/18 00:21 Urine Ketones Negative (NEGATIVE) 01/13/18 00:21 Urine Occult Blood 3+ (NEGATIVE) 01/13/18 00:21 Urine Nitrite Negative (NEGATIVE) 01/13/18 00:21 Urine Bilirubin Negative (NEGATIVE) 01/13/18 00:21 Urine Urobilinogen 2+ (NORMAL) 01/13/18 00:21 Ur Leukocyte Esterase Negative (NEGATIVE) 01/13/18 00:21 Urine RBC 0-2 /HPF (NONE SEEN) 01/13/18 00:21 Urine WBC 0-2 /HPF (NONE SEEN) 01/13/18 00:21 Ur Squamous Epith Cells Few /HPF (NEGATIVE) 01/13/18 00:21 Amorphous Sediment 1+ /HPF (NEGATIVE) 01/13/18 00:21 Urine Bacteria 1+ /HPF (NEGATIVE) 01/13/18 00:21 Ur Culture Indicated? No/not indicated 01/13/18 00:21 Acetone, Semi-Quant Negative (NEGATIVE) 01/13/18 00:20 - Plan (1) Abdominal pain Status: Acute Plan: STRICT I& OS. IV LASIX, SUPPLEMENTAL O2. LACTULOSE, REPEAT AM AMMONIA, CBC CMP. CLEAR LIQUID DIET, BLEEDING PRECAUTIONS. PAIN AND NAUSEA CONTROL, BP AND CARDIAC MONITORING (2) CHF (congestive heart failure) Status: Acute (3) Cirrhosis of liver Status: Acute (4) Cholelithiasis Status: Acute Qualifiers: Cholelithiasis location: gallbladder Cholecystitis presence: without cholecystitis Biliary obstruction: with biliary obstruction Qualified Code(s ): K80.21 - Calculus of gallbladder without cholecystitis with obstruction (5) Leukopenia Status: Acute Qualifiers: Leukopenia type: unspecified Qualified Code(s): D72.819 - Decreased white blood cell count, unspecified Plan: CBC WITH PERIPHERAL SMEAR (6) Pancytopenia Status: Acute (7) Coronary artery disease Status: Chronic
--- NOTE | 2018-01-14 15:33 | RAD ---
STUDY: CHEST, TWO VIEWS History: Shortness of breath. Abdominal ascites. Comparison: November 11, 2017 Findings: The trachea is midline. The lungs are clear of consolidation, significant infiltrate, effusion, or pn eumothorax. The cardiac silhouette, mediastinum and osseous structures are unremarkable. IMPRESSION: 1. No evidence of acute cardiopulmonary abnormality. Reported By:
[2018-01-14] MEDS: ZOFRAN INJ 4 MG VIAL IVP PRN (18:40)
[2018-01-14] MEDS: LEVAQUIN PREMIX IV 500 MG 500 MG/100 ML BAG IV SCH (18:40)
[2018-01-14] MEDS ORDERED: LASIX ONE (21:37)
[2018-01-14] MEDS: SNACK - Diabetic Appropriate PO SCH (21:50)
[2018-01-15] MEDS: HumuLIN R SUBCUT PRN ×4 (05:58→22:53)
[2018-01-15 06:26] LABS: BASOPHILS % (AUTO) 0.8 % (0.2-1.0); EOSINOPHILS % (AUTO) 2.2 % (0.9-2.9); HEMATOCRIT 29.7 % (36.0-47.0); HEMOGLOBIN 10.1 g/dL (12.0-16.0); LYMPHOCYTES # (AUTO) 0.4 X10^3/uL (1.3-2.9); LYMPHOCYTES % (AUTO) 27.6 % (21.0-51.0); MEAN CORPUSCULAR HEMOGLOBIN 30.3 pg (27.0-34.0); MEAN PLATELET VOLUME 8.3 fL (7.4-11.0); MONOCYTES # (AUTO) 0.1 x10^3/uL (0.3-0.8); MONOCYTES % (AUTO) 9.4 % (0.0-13.0); NEUTROPHILS # (AUTO) 0.8 x10^3/uL (2.2-4.8); PLATELET COUNT 52 X10^3/uL (150.0-450.0); RED BLOOD COUNT 3.34 X10^6/uL (3.5-5.4); RED CELL DISTRIBUTION WIDTH 17.8 % (11.6-16.5)
[2018-01-15 06:37] LABS: WHITE BLOOD COUNT 1.4 X10^3/uL (3.6-10.0)
[2018-01-15 06:48] LABS: ALANINE AMINOTRANSFERASE 39 Units/L (12-78); ALBUMIN 2.4 g/dL (3.4-5.0); ALKALINE PHOSPHATASE 283 Units/L (46-116); ASPARTATE AMINO TRANSFERASE 50 Units/L (15-37); BLOOD UREA NITROGEN 6 mg/dL (7-18); CARBON DIOXIDE 32.9 mmol/L (21-32); CHLORIDE 102 mmol/L (98-107); COR CA(FOR HYPOALB) 9.3 mg/dL (8.5-10.1); COR NA(FOR HYPERGLY) 143 mmol/L (136-145); CREATININE 0.72 mg/dL (0.55-1.02); MAGNESIUM 1.4 mg/dL (1.7-2.9); SODIUM 141 mmol/L (136-145); TOTAL PROTEIN 6.3 g/dL (6.4-8.2); eGFR BLACK RACES > 60 (>60); eGFR NON BLACK RACES > 60 (>60)
[2018-01-15 07:02] LABS: PLATELET MORPHOLOGY COMMENT NORMAL (NORMAL)
[2018-01-15 07:03] LABS: HYPOCHROMASIA SLIGHT
[2018-01-15] MEDS: CHRONULAC PO SCH (09:42)
[2018-01-15] MEDS: K-DUR TAB 20 MEQ PO SCH ×2 (09:43→22:48)
[2018-01-15] MEDS: LEVAQUIN PREMIX IV 500 MG 500 MG/100 ML BAG IV SCH (09:43)
[2018-01-15] MEDS: LASIX IVP SCH ×2 (09:43→22:52)
[2018-01-15] MEDS: ZOFRAN INJ 4 MG VIAL IVP PRN (15:44)
[2018-01-15] MEDS ORDERED: PHENERGAN INJ 25 MG IV PRN (17:31)
[2018-01-15] MEDS: K-LYTE EFFERVESCENT PO PRN (22:49)
[2018-01-15] MEDS: SNACK - Diabetic Appropriate PO SCH (22:53)
[2018-01-15] MEDS: MAGNESIUM SULFATE 1 GM/100 mL PREMIX 1 GM/100 ML BAG IV PRN (22:54)
[2018-01-16 00:37] LABS: HEPATITIS A ANTIBODY IGM Negative (Negative)
[2018-01-16] MEDS: MAGNESIUM SULFATE 1 GM/100 mL PREMIX 1 GM/100 ML BAG IV PRN ×3 (02:01→05:48)
[2018-01-16] MEDS ORDERED: MAGNESIUM SULFATE 50% INJ ONE (02:48)
[2018-01-16 06:00] LABS: ALANINE AMINOTRANSFERASE 40 Units/L (12-78); ALBUMIN 2.4 g/dL (3.4-5.0); ALKALINE PHOSPHATASE 276 Units/L (46-116); ASPARTATE AMINO TRANSFERASE 54 Units/L (15-37); BLOOD UREA NITROGEN 8 mg/dL (7-18); CALCIUM 8.1 mg/dL (8.5-10.1); CARBON DIOXIDE 32.2 mmol/L (21-32); CHLORIDE 100 mmol/L (98-107); COR CA(FOR HYPOALB) 9.4 mg/dL (8.5-10.1); COR NA(FOR HYPERGLY) 143 mmol/L (136-145); CREATININE 0.86 mg/dL (0.55-1.02); SODIUM 138 mmol/L (136-145); TOTAL PROTEIN 6.2 g/dL (6.4-8.2); eGFR BLACK RACES > 60 (>60); eGFR NON BLACK RACES > 60 (>60)
[2018-01-16 06:04] LABS: BASOPHILS % (AUTO) 0.5 % (0.2-1.0); EOSINOPHILS % (AUTO) 2.5 % (0.9-2.9); HEMATOCRIT 28.9 % (36.0-47.0); HEMOGLOBIN 9.9 g/dL (12.0-16.0); LYMPHOCYTES # (AUTO) 0.5 X10^3/uL (1.3-2.9); MEAN CORPUSCULAR HEMOGLOBIN 30.8 pg (27.0-34.0); MEAN CORPUSCULAR HGB CONC 34.3 g/dL (33.0-35.0); MEAN CORPUSCULAR VOLUME 89.6 fL (80.0-100.0); MEAN PLATELET VOLUME 9.3 fL (7.4-11.0); MONOCYTES # (AUTO) 0.1 x10^3/uL (0.3-0.8); MONOCYTES % (AUTO) 9.1 % (0.0-13.0); NEUTROPHILS # (AUTO) 0.9 x10^3/uL (2.2-4.8); NEUTROPHILS % (AUTO) 56.9 % (42.0-75.0); PLATELET COUNT 55 X10^3/uL (150.0-450.0); RED BLOOD COUNT 3.22 X10^6/uL (3.5-5.4); RED CELL DISTRIBUTION WIDTH 17.9 % (11.6-16.5)
[2018-01-16 06:11] LABS: WHITE BLOOD COUNT 1.6 X10^3/uL (3.6-10.0)
[2018-01-16 06:37] LABS: BAND NEUTROPHILS % 2 % (0-10)
[2018-01-16 06:38] LABS: ANISOCYTOSIS SLIGHT; PLATELET MORPHOLOGY COMMENT NORMAL (NORMAL)
[2018-01-16 06:39] LABS: HYPOCHROMASIA SLIGHT
--- NOTE | 2018-01-16 07:52 | RAD ---
HISTORY: 57-year-old female with shortness of breath. Study: Frontal view of the chest. Comparison: Chest radiographs 01/14/2018 Findings: The trachea is midline. The cardiac silhouette is stable. The lungs are clear without focal consoli dation, effusion or pneumothorax. Soft tissues are unremarkable. Osseous structures are unremarkable . IMPRESSION: 1. No acute cardiopulmonary disease. Reported By:
[2018-01-16] MEDS: K-DUR TAB 20 MEQ PO SCH ×2 (09:29→21:35)
[2018-01-16] MEDS: LEVAQUIN PREMIX IV 500 MG 500 MG/100 ML BAG IV SCH (09:29)
[2018-01-16] MEDS: CHRONULAC PO SCH (09:29)
[2018-01-16] MEDS: LASIX IVP SCH ×2 (09:29→21:34)
[2018-01-16] MEDS: K-LYTE EFFERVESCENT PO PRN (09:30)
[2018-01-16 11:00] LABS: HEPATITIS B CORE IGM Negative (Negative); HEPATITIS B SURFACE ANTIGEN Negative (Negative)
[2018-01-16] MEDS: PEPCID 20 MG IV PREMIX* 20 MG/50 ML BAG IV PRN (11:36)
[2018-01-16] MEDS: HumuLIN R SUBCUT PRN ×3 (12:42→22:25)
[2018-01-16] MEDS: SNACK - Diabetic Appropriate PO SCH (21:36)
[2018-01-16] MEDS ORDERED: NITROSTAT SL PRN (23:21)
[2018-01-16] MEDS ORDERED: ULTRAM PO PRN (23:36)
[2018-01-17 05:35] LABS: ALANINE AMINOTRANSFERASE 43 Units/L (12-78); ALBUMIN 2.7 g/dL (3.4-5.0); ALKALINE PHOSPHATASE 292 Units/L (46-116); ASPARTATE AMINO TRANSFERASE 65 Units/L (15-37); BASOPHILS % (AUTO) 0.8 % (0.2-1.0); BLOOD UREA NITROGEN 10 mg/dL (7-18); CALCIUM 8.4 mg/dL (8.5-10.1); CARBON DIOXIDE 32.3 mmol/L (21-32); CHLORIDE 100 mmol/L (98-107); COR CA(FOR HYPOALB) 9.4 mg/dL (8.5-10.1); COR NA(FOR HYPERGLY) 142 mmol/L (136-145); CREATININE 0.78 mg/dL (0.55-1.02); EOSINOPHILS % (AUTO) 2.8 % (0.9-2.9); HEMATOCRIT 31.2 % (36.0-47.0); HEMOGLOBIN 10.5 g/dL (12.0-16.0); LYMPHOCYTES # (AUTO) 0.5 X10^3/uL (1.3-2.9); MEAN CORPUSCULAR HEMOGLOBIN 30.3 pg (27.0-34.0); MEAN CORPUSCULAR HGB CONC 33.6 g/dL (33.0-35.0); MEAN PLATELET VOLUME 8.9 fL (7.4-11.0); MONOCYTES # (AUTO) 0.2 x10^3/uL (0.3-0.8); MONOCYTES % (AUTO) 9.5 % (0.0-13.0); NEUTROPHILS # (AUTO) 0.9 x10^3/uL (2.2-4.8); NEUTROPHILS % (AUTO) 55.9 % (42.0-75.0); PLATELET COUNT 59 X10^3/uL (150.0-450.0); RED BLOOD COUNT 3.47 X10^6/uL (3.5-5.4); RED CELL DISTRIBUTION WIDTH 17.4 % (11.6-16.5); SODIUM 137 mmol/L (136-145); TOTAL PROTEIN 6.9 g/dL (6.4-8.2); eGFR BLACK RACES > 60 (>60); eGFR NON BLACK RACES > 60 (>60)
[2018-01-17 06:00] LABS: WHITE BLOOD COUNT 1.7 X10^3/uL (3.6-10.0)
[2018-01-17] MEDS: HumuLIN R SUBCUT PRN ×3 (06:12→17:05)
[2018-01-17] MEDS ORDERED: GLUCOTROL PO SCH (07:00)
[2018-01-17] MEDS ORDERED: HEMOCYTE-PLUS PO SCH (09:00)
[2018-01-17] MEDS ORDERED: NAMENDA TAB 10 MG PO SCH (09:00)
[2018-01-17] MEDS ORDERED: ASPIRIN 81 MG CHEWTAB PO SCH (09:00)
[2018-01-17] MEDS ORDERED: PLAVIX PO SCH (09:00)
[2018-01-17] MEDS ORDERED: LASIX PO SCH (09:00)
[2018-01-17] MEDS ORDERED: PROTONIX TAB 40 MG PO SCH (09:00)
[2018-01-17] MEDS ORDERED: LOPRESSOR TAB 25 MG PO SCH (09:00)
[2018-01-17] MEDS ORDERED: LIPITOR TAB 40 MG PO SCH (09:00)
[2018-01-17] MEDS ORDERED: K-DUR TAB 20 MEQ PO SCH (09:00)
[2018-01-17] MEDS: LEVAQUIN PREMIX IV 500 MG 500 MG/100 ML BAG IV SCH (09:14)
[2018-01-17] MEDS: CHRONULAC PO SCH (09:14)
--- NOTE | 2018-01-17 12:04 | US ---
History: Abdominal pain. RUQ pain. Exam: Right upper quadrant ultrasound exam. Technique: Doppler and grayscale ultrasound images of the right upper quadrant performed. Comparison: Abdominopelvic CT exam dated 01/15/2017. Findings: The liver is echogenic/fatty in appearance but normal in size, measuring roughly 17 cm. There is a sm all amount of with mild complex surrounding perihepatic ascites/fluid observed. The gallbladder shows abnormal gallbladder wall thickening with intraluminal gallstones and a positive Shah's sign. Thes e findings can be seen with liver disease or cholecystitis. HIDA imaging follow-up is suggested. The common bile duct is normal in size, measuring 3 mm. The portal vein and hepatic veins were not well e valuated on Doppler imaging on this exam secondary to ascites and acoustic shadowing from bowel gas. The right kidney is unremarkable and normal in echotexture, measuring 10 x 5 x 5 cm. The pancreas is grossly unremarkable, although the pancreatic body and tail are obscured by overlying stool and bowel gas as well. There is no evidence for an aortic aneurysm. The visualized IVC is unremarkable as well . Impression: 1. Liver is echogenic/fatty in appearance but normal in size without dominant liver mass lesion seen. Small amount of not complex appearing hepatic ascites/fluid is also observed. 2. Abnormal gallbladder wall thickening of 7 mm with intraluminal gallstones and positive Shah's si gn. These findings can be seen with chronic liver disease or from cholecystitis. Nuclear medicine HID A imaging follow-up is suggested for further assessment in this patient. 3. No other abdominal sonographic abnormalities identified. Normal sized common bile duct. Reported By:
[2018-01-17 16:14] VITALS: BP 99/56
[2018-01-17] MEDS ORDERED: CELEXA PO SCH (21:00)
== END 2018-01-17 18:15 | disposition short-term general hospital (02) | DRG 392 ==
LOC: ER 23:15 → OBS 01-13 08:02 → MED/SURG 01-13 13:40
PROVIDERS: ADMIT Internal Medicine; ATTEND Internal Medicine
DX: R10.84 Generalized abdominal pain (principal); K80.21 Calculus of gallbladder without cholecystitis with obstruction; D61.818 Other pancytopenia; I50.9 Heart failure, unspecified; K74.69 Other cirrhosis of liver; R06.02 Shortness of breath; F41.8 Other specified anxiety disorders; R06.03 Acute respiratory distress; E11.65 Type 2 diabetes mellitus with hyperglycemia; I10 Essential (primary) hypertension; E87.6 Hypokalemia; D72.818 Other decreased white blood cell count; D69.6 Thrombocytopenia, unspecified; J44.9 Chronic obstructive pulmonary disease, unspecified; R60.0 Localized edema; I25.10 Atherosclerotic heart disease of native coronary artery without angina pectoris; R79.82 Elevated C-reactive protein (CRP)
CPT/HCPCS: 36415; 71045; 71046; 74176; 76705; 80053; 80074; 81001; 82009; 82140; 82150; 82550; 82553; 82947; 83036; 83605; 83690; 83735; 84132; 84484; 85025; 85610; 85730; 86140; 87040; 87086; 87088; 87186; 93005; 93010; 94760; 96365; 96372; 96374; 96375; 99284; A4216; A4222; S0028; J1815; J1940; J1956; J2405; J3475

== ENCOUNTER 2018-06-08 12:31 | Inpatient (IN) ==
--- NOTE | 2018-06-08 13:25 | RAD ---
History: Abdominal pain and distention Study: Acute abdominal series Findings: The lungs are clear and the heart and mediastinum are unremarkable. There is no pleural eff usion. The bowel gas pattern is normal. Normal calcification or mass is suggested. There are severe degenera tive osteophytes in the lumbar spine. There is no free air. Bowel gas is primarily centrally with retroperitoneal largely obscured suggesting ascites. Impression: 1. No acute cardiopulmonary disease 2. Suspicion of ascites Reported By:
[2018-06-08 13:36] LABS: BASOPHILS % (AUTO) 0.6 % (0.2-1.0); EOSINOPHILS % (AUTO) 1.7 % (0.9-2.9); HEMATOCRIT 32.8 % (36.0-47.0); LYMPHOCYTES # (AUTO) 0.5 X10^3/uL (1.3-2.9); LYMPHOCYTES % (AUTO) 24.7 % (21.0-51.0); MEAN CORPUSCULAR HEMOGLOBIN 30.5 pg (27.0-34.0); MEAN CORPUSCULAR HGB CONC 33.6 g/dL (33.0-35.0); MEAN CORPUSCULAR VOLUME 90.7 fL (80.0-100.0); MEAN PLATELET VOLUME 8.4 fL (7.4-11.0); MONOCYTES # (AUTO) 0.2 x10^3/uL (0.3-0.8); MONOCYTES % (AUTO) 8.3 % (0.0-13.0); NEUTROPHILS # (AUTO) 1.2 x10^3/uL (2.2-4.8); NEUTROPHILS % (AUTO) 64.7 % (42.0-75.0); PLATELET COUNT 58 X10^3/uL (150.0-450.0); RED BLOOD COUNT 3.62 X10^6/uL (3.5-5.4); RED CELL DISTRIBUTION WIDTH 18.4 % (11.6-16.5)
[2018-06-08 13:38] LABS: BLOOD UREA NITROGEN 8 mg/dL (7-18); CALCIUM 8.2 mg/dL (8.5-10.1); CARBON DIOXIDE 33.7 mmol/L (21-32); CHLORIDE 101 mmol/L (98-107); COR NA(FOR HYPERGLY) 140 mmol/L (136-145); CREATININE 0.88 mg/dL (0.55-1.02); SODIUM 137 mmol/L (136-145); eGFR NON BLACK RACES > 60 (>60)
[2018-06-08 13:41] LABS: WHITE BLOOD COUNT 1.9 X10^3/uL (3.6-10.0)
[2018-06-08 13:42] LABS: ALANINE AMINOTRANSFERASE 31 Units/L (12-78); ALBUMIN 2.5 g/dL (3.4-5.0); ALKALINE PHOSPHATASE 259 Units/L (46-116); AMMONIA < 10 umol/L (11-32); ASPARTATE AMINO TRANSFERASE 53 Units/L (15-37); COR CA(FOR HYPOALB) 9.4 mg/dL (8.5-10.1); TOTAL PROTEIN 6.8 g/dL (6.4-8.2)
[2018-06-08 13:59] LABS: PLATELET MORPHOLOGY COMMENT NORMAL (NORMAL)
--- NOTE | 2018-06-08 14:03 | DR.H&P ---
H&P - History & Physical for Day of: H&P Date: 06/08/18 - Chief Complaint Chief Complaint: SOB, ABDOMINAL SWELLING, WEAKNESS - History of Present Illness History of Present Illness: 57 WF DIRECT ADMIT FROM DR CERVANTES OFFICE WITH CO INCREASED SOB ABDOMINAL DISTENTION, SWELLING TO BOTH LOWER EXTREMITIES, AND WEAKNESS. PT WAS PREVIOUSLY SEEN IN ER ON 05/25 WITH HYPOKALEMIA AND D/C HOME PO POTASSIUM. PT HAS PMH OF DM, LIVER FAILURE, HTN, CHF, THROMBOCYTOPENIA. PT ADMITTED FOR TREATMENT AND EVALUATION OF - Past Medical History Past Medical History: [place], Hypertension, Diabetes, Liver Disease, Cirrhosis, Depression, Anxiety - Past Surgical History Surgical History: Angioplasty/Stents - Family History Family Medical History: Diabetes Mellitus, [place], Sudden Cardiac - Social History Does patient currently use any type of tobacco product: Yes Have you used tobacco products in the last 12 months: Yes Type of Tobacco Use: Cigarettes Does any household member use tobacco: No Alcohol Use: Other (NO LONGER DRINKING ETOH X 1-2 MONTHS) Drug Use: None - Medications Home Medications: codeine Allergy (Verified 01/13/18 15:45) - Review of Systems Constitutional: Weakness, Malaise Eyes: No Symptoms Reported ENT: No Symptoms Reported Respiratory: Shortness of Breath, SOB with Excertion Cardiovascular: Edema Gastrointestinal: Nausea, Abdominal Pain, Diarrhea, Melena Genitourinary: No Symptoms Reported Musculoskeletal: Back Pain, Leg Pain Skin: No Symptoms Reported Neurological: No Symptoms Reported - Physical Exam Vital Signs: Blood Pressure [Right Arm] 99/56 Blood Pressure [Left Arm] 140/67 Blood Pressure 140/67 Oriented: Normal Eyes: Normal Ear: Normal Nose: Normal Throat: Normal Respiratory: Diminished Throughout Cardiovascular: Normal, Edema : Normal Auscultation: Bowel Sounds: Decreased Palpation: Liver Enlarged, Other (DIFFUSE DISTENTION) Tenderness: Diffuse Skin: Decreased Turgur Musculoskeletal: Right, Left, Leg, Back:Lumbar Psychiatric: Depression Affect: Depressed Speech Pattern: Clear, Appropriate - Assessment/Plan (1) SOB (shortness of breath) Status: Acute Plan: ADMIT, ADMISSION LABS CBC CMP MAG, UA, AMMONIA LEVEL. ABD SERIES WITH CHEST XRAY, CT ABD PELVIS WITHOUT. STRICT I & OS SUPPLEMENTAL O2. VERIFY HOME MEDS. ELECTROLYTE REPLACEMENT PRN, BP CONTROL (2) Ascites Qualifiers: Ascites type: malignant Qualified Code(s): R18.0 - Malignant ascites Status: Acute (3) Coronary artery disease Status: Chronic (4) Pancytopenia Status: Acute (5) CHF (congestive heart failure) Status: Acute (6) Cirrhosis of liver Status: Acute - Allergies Allergies/Adverse Reactions: Allergies Allergy/AdvReac Type Severity Reaction Status Date / Time codeine Allergy Verified 01/13/18 15:45
[2018-06-08 16:00] LABS: BILIRUBIN,URINE NEGATIVE (NEGATIVE); BLOOD/HEMOGLOBIN,URINE NEGATIVE (NEGATIVE); GLUCOSE, URINE NEGATIVE (NEGATIVE); KETONES,URINE NEGATIVE (NEGATIVE); LEUKOCYTE ESTERASE ,URINE NEGATIVE (NEGATIVE); NITRITES,URINE NEGATIVE (NEGATIVE); PROTEIN,URINE NEGATIVE (NEGATIVE); UROBILINOGEN,URINE NORMAL (NORMAL)
[2018-06-08] MEDS ORDERED: K-DUR TAB 20 MEQ PO ONE (16:00)
[2018-06-08 16:01] LABS: APPEARANCE,URINE CLEAR (CLEAR); COLOR,URINE YELLOW (YELLOW)
--- NOTE | 2018-06-08 16:33 | CT ---
CT abdomen and pelvis without contrast Indication: Ascites, liver failure Comparison: 01/13/2018 Technique: Multiple axial images of the abdomen and pelvis were obtained from the lung bases to the pubic symphy sis without the administration of IV contrast. Findings: Lung bases are clear. The liver has a cirrhotic morphology without focal hepatic lesion identified gi alistair the limitations of a noncontrast examination. The gallbladder is mildly distended with a calcifie d gallstone within its lumen. The bile ducts, pancreas and adrenal glands are normal. The spleen is m ildly enlarged, unchanged. Neither kidney demonstrates evidence of nephrolithiasis, hydronephrosis or mass. Upper GI tract contains a small sliding hiatal hernia without evidence of mass or obstruction. Urinary bladder is unremarkable. No pelvic or adnexal mass. The rectum and colon are normal. The wicho endix is not visualized. Large volume free fluid is noted within the abdomen and pelvis. There is mes enteric congestion. Body wall edema is also noted. Review of bone windows demonstrates no acute osseo us abnormality. Moderate calcified atherosclerotic disease of a normal caliber abdominal aorta. Impression: 1. Large volume abdominal and pelvic free fluid with body wall edema consistent with volume overload likely in the setting of chronic liver disease/cirrhosis. Portal venous hypertension is evidenced by both ascitic fluid and splenomegaly. Given limitations of a noncontrast examination no focal hepatic lesion is identified. 2. Cholelithiasis. 3. The appendix is not visualized and thus exclusion of acute appendicitis is not possible by this ex amination. Reported By:
[2018-06-08] MEDS: HumuLIN R SUBCUT PRN ×2 (17:00→21:10)
[2018-06-09 05:41] LABS: BASOPHILS % (AUTO) 0.5 % (0.2-1.0); HEMATOCRIT 31.8 % (36.0-47.0); HEMOGLOBIN 10.6 g/dL (12.0-16.0); LYMPHOCYTES # (AUTO) 0.4 X10^3/uL (1.3-2.9); LYMPHOCYTES % (AUTO) 24.6 % (21.0-51.0); MEAN CORPUSCULAR HEMOGLOBIN 30.6 pg (27.0-34.0); MEAN CORPUSCULAR HGB CONC 33.4 g/dL (33.0-35.0); MEAN CORPUSCULAR VOLUME 91.7 fL (80.0-100.0); MEAN PLATELET VOLUME 8.5 fL (7.4-11.0); MONOCYTES # (AUTO) 0.1 x10^3/uL (0.3-0.8); MONOCYTES % (AUTO) 6.7 % (0.0-13.0); NEUTROPHILS % (AUTO) 66.2 % (42.0-75.0); PLATELET COUNT 60 X10^3/uL (150.0-450.0); RED BLOOD COUNT 3.47 X10^6/uL (3.5-5.4); RED CELL DISTRIBUTION WIDTH 18.3 % (11.6-16.5)
[2018-06-09 05:45] LABS: ALANINE AMINOTRANSFERASE 28 Units/L (12-78); ALBUMIN 2.4 g/dL (3.4-5.0); ALKALINE PHOSPHATASE 242 Units/L (46-116); ASPARTATE AMINO TRANSFERASE 49 Units/L (15-37); BLOOD UREA NITROGEN 9 mg/dL (7-18); CALCIUM 7.9 mg/dL (8.5-10.1); CARBON DIOXIDE 31.4 mmol/L (21-32); CHLORIDE 103 mmol/L (98-107); COR CA(FOR HYPOALB) 9.2 mg/dL (8.5-10.1); COR NA(FOR HYPERGLY) 145 mmol/L (136-145); CREATININE 0.86 mg/dL (0.55-1.02); SODIUM 140 mmol/L (136-145); TOTAL PROTEIN 6.5 g/dL (6.4-8.2); eGFR NON BLACK RACES > 60 (>60)
[2018-06-09] MEDS: HumuLIN R SUBCUT PRN ×4 (05:55→21:04)
[2018-06-09 05:58] LABS: WHITE BLOOD COUNT 1.5 X10^3/uL (3.6-10.0)
[2018-06-09] MEDS ORDERED: POTASSIUM CHL 40 MEQ/NS 0.45% 500 ML IV PRN (09:59)
[2018-06-09] MEDS ORDERED: POTASSIUM CHLORIDE LIQ 20 MEQ UDC PO PRN (09:59)
[2018-06-09] MEDS ORDERED: K-LYTE EFFERVESCENT PO PRN (09:59)
[2018-06-09] MEDS ORDERED: K-RIDER 10 MEQ/NS 100 ML 10 MEQ/100 ML BAG IV PRN (09:59)
[2018-06-09] MEDS ORDERED: POTASSIUM CHL 60 MEQ/NS 0.45% 500 ML IV PRN (09:59)
[2018-06-09] MEDS ORDERED: NS 250 ML IV 250 ML IV ONE (14:42)
[2018-06-09] MEDS: MAGNESIUM SULFATE 1 GRAM/100 mL PREMIX 1 GM/100 ML BAG IV PRN ×2 (14:56→18:09)
--- NOTE | 2018-06-09 18:24 | PCM.PROG ---
Progress Note - Progress Note for Day of Date of Exam: 06/09/18 - Subjective Subjective: 57 WF ADMITTED ON 06/08 WITH SOB DUE TO INCREASE ASCITES. PT WAS HYPOKALEMIC ON ADMISSION, WITH IMPROVING POTASSIUM THIS AM. PT HAS PANCYTOPENIA , POSITIVE OCCULT STOOL NORMAL INR. RESUME LACUTULOSE. CONSULT DR GONZALES FOR POSSIBLE PARACENTESIS. CONTINUE STRICT I & OS, REVERSE CONTACT PRECAUTIONS DUE TO LEUKOPENIA - Past Medical Family Social History Past Med/Fam/Surg Hx: No changes since H&P Allergies: Allergies codeine Allergy (Verified 01/13/18 15:45) - Review of Systems ROS: No change since H&P - Vital Signs and I&O's Vital Signs: Temperature 98.7 F Pulse Rate [Left Brachial] 71 Pulse Rate [Left Apical] 67 Respiratory Rate 20 Blood Pressure [Right Arm] 106/59 Blood Pressure [Left Arm] 96/52 Blood Pressure 140/67 O2 Sat by Pulse Oximetry 96 Intake and Output: Intake & Output 06/07/18 06/08/18 06/09/18 06/10/18 11:59 11:59 11:59 11:59 Intake Total 480 / 480 620 / 620 Output Total 7050 / 7050 Balance 480 / 480 -6430 / -6430 - Physical Exam Oriented: Normal Eyes: Normal Ear: Normal Nose: Normal Throat: Normal Cardiovascular: Normal, Edema : Normal Auscultation: Bowel Sounds: Decreased Tenderness: Diffuse Skin: Decreased Turgur Musculoskeletal: Right, Left, Leg, Back:Lumbar Psychiatric: Depression Affect: Depressed Speech Pattern: Clear, Appropriate - Laboratory and Diagnostics Result Diagrams: 06/09/18 04:31 06/09/18 04:31 Labs: 06/09/18 12:38 Abdomen Gram Stain - Final Laboratory WBC 1.5 X10^3/uL (3.6-10.0) L* 06/09/18 04:31 RBC 3.47 X10^6/uL (3.5-5.4) L 06/09/18 04:31 Hgb 10.6 g/dL (12.0-16.0) L 06/09/18 04:31 Hct 31.8 % (36.0-47.0) L 06/09/18 04:31 MCV 91.7 fL (80.0-100.0) 06/09/18 04:31 MCH 30.6 pg (27.0-34.0) 06/09/18 04:31 MCHC 33.4 g/dL (33.0-35.0) 06/09/18 04:31 RDW 18.3 % (11.6-16.5) H 06/09/18 04:31 Plt Count 60 X10^3/uL (150.0-450.0) L 06/09/18 04:31 Plt Count Comment Decreased (ADEQUATE) A 06/08/18 13:21 MPV 8.5 fL (7.4-11.0) 06/09/18 04:31 Neut % (Auto) 66.2 % (42.0-75.0) 06/09/18 04:31 Lymph % (Auto) 24.6 % (21.0-51.0) 06/09/18 04:31 [place] % (Auto) 6.7 % (0.0-13.0) 06/09/18 04:31 Eos % (Auto) 2.0 % (0.9-2.9) 06/09/18 04:31 Baso % (Auto) 0.5 % (0.2-1.0) 06/09/18 04:31 Neut # (Auto) 1.0 x10^3/uL (2.2-4.8) L 06/09/18 04:31 Lymph # (Auto) 0.4 X10^3/uL (1.3-2.9) L 06/09/18 04:31 [place] # (Auto) 0.1 x10^3/uL (0.3-0.8) L 06/09/18 04:31 Eos # (Auto) 0.0 x10^3/uL (0.0-0.2) 06/09/18 04:31 Baso # (Auto) 0.0 X10^3/uL (0.0-0.1) 06/09/18 04:31 Absolute Nucleated RBC 0.0 /100WBC 06/09/18 04:31 Total Counted 100 06/08/18 13:21 Neutrophils % (Manual) 82 % (39-76) H 06/08/18 13:21 Lymphocytes % (Manual) 14 % (13-43) 06/08/18 13:21 Monocytes % (Manual) 4 % (4-9) 06/08/18 13:21 Plt Morphology Comment Normal (NORMAL) 06/08/18 13:21 RBC Morphology Normal (NORMAL) 06/08/18 13:21 INR Target Range - 06/08/18 13:21 INR 1.12 (0.8-1.3) 06/08/18 13:21 Sodium 140 mmol/L (136-145) 06/09/18 04:31 Corrected Sodium 145 mmol/L (136-145) 06/09/18 04:31 Potassium 3.5 mmol/L (3.5-5.1) 06/09/18 04:31 Chloride 103 mmol/L (98-107) 06/09/18 04:31 Carbon Dioxide 31.4 mmol/L (21-32) 06/09/18 04:31 BUN 9 mg/dL (7-18) 06/09/18 04:31 Creatinine 0.86 mg/dL (0.55-1.02) 06/09/18 04:31 Est GFR (MDRD) Af Amer > 60 (>60) 06/09/18 04:31 Est GFR (MDRD) Non-Af > 60 (>60) 06/09/18 04:31 Glucose 293 mg/dL (65-99) H 06/09/18 04:31 POC Glucose (mg/dL) 334 mg/dL (65-99) H 06/09/18 17:02 Hemoglobin A1c 8.3 % 06/08/18 13:21 Calcium 7.9 mg/dL (8.5-10.1) L 06/09/18 04:31 Corrected Calcium 9.2 mg/dL (8.5-10.1) 06/09/18 04:31 Magnesium 1.6 mg/dL (1.7-2.9) L 06/09/18 04:31 Total Bilirubin 0.70 mg/dL (0.2-1.0) 06/09/18 04:31 AST 49 Units/L (15-37) H 06/09/18 04:31 ALT 28 Units/L (12-78) 06/09/18 04:31 Alkaline Phosphatase 242 Units/L (46-116) H 06/09/18 04:31 Ammonia < 10 umol/L (11-32) L 06/08/18 13:21 Total Protein 6.5 g/dL (6.4-8.2) 06/09/18 04:31 Albumin 2.4 g/dL (3.4-5.0) L 06/09/18 04:31 Globulin 4.1 g/dL (2.5-4.5) 06/09/18 04:31 Albumin/Globulin Ratio 0.6 Ratio (1.1-2.1) L 06/09/18 04:31 Specimen Type Clean catch urine 06/08/18 15:52 Urine Color Yellow (YELLOW) 06/08/18 15:52 Urine Appearance Clear (CLEAR) 06/08/18 15:52 Urine pH 7.0 (5.0 - 8.0) 06/08/18 15:52 Ur Specific [place] 1.010 (1.000-1.030) 06/08/18 15:52 Urine Protein Negative (NEGATIVE) 06/08/18 15:52 Urine Glucose (UA) Negative (NEGATIVE) 06/08/18 15:52 Urine Ketones Negative (NEGATIVE) 06/08/18 15:52 Urine Occult Blood Negative (NEGATIVE) 06/08/18 15:52 Urine Nitrite Negative (NEGATIVE) 06/08/18 15:52 Urine Bilirubin Negative (NEGATIVE) 06/08/18 15:52 Urine Urobilinogen Normal (NORMAL) 06/08/18 15:52 Ur Leukocyte Esterase Negative (NEGATIVE) 06/08/18 15:52 Stool Description 20g formed brown 06/09/18 07:33 Stl Occult Blood (IFOB) Positive (NEGATIVE) A 06/09/18 07:33 Cytology Specimen To follow 06/09/18 12:37 - Plan (1) SOB (shortness of breath) Status: Acute Plan: AM LABS CBC CMP AMMONIA LEVEL. ABD SERIES WITH CHEST XRAY, CT ABD PELVIS WITHOUT CONTRAST ON ADMISSION, DR GONZALES CONSULT FOR POSSIBLE PARACENTESIS. STRICT I & OS SUPPLEMENTAL O2. VERIFY HOME MEDS. ELECTROLYTE REPLACEMENT PRN, BP CONTROLM BLEEDING PRECAUTIONS. REVERSE CONTACT PRECAUTIONS (2) Ascites Status: Acute Qualifiers: Ascites type: malignant Qualified Code(s): R18.0 - Malignant ascites (3) Coronary artery disease Status: Chronic (4) Pancytopenia Status: Acute (5) CHF (congestive heart failure) Status: Acute (6) Cirrhosis of liver Status: Acute (7) Acute hypokalemia Status: Acute (8) Leukopenia Status: Acute Qualifiers: Leukopenia type: unspecified Qualified Code(s): D72.819 - Decreased white blood cell count, unspecified
[2018-06-09] MEDS: SNACK - Diabetic Appropriate PO SCH (20:40)
[2018-06-09] MEDS: ALDACTONE TAB 25 MG PO SCH (21:03)
[2018-06-09] MEDS: LASIX PO SCH (21:03)
[2018-06-09] MEDS: COREG TAB 3.125 MG PO SCH (21:03)
[2018-06-10 05:16] LABS: AMMONIA < 10 umol/L (11-32)
[2018-06-10 05:21] LABS: BASOPHILS % (AUTO) 0.7 % (0.2-1.0); EOSINOPHILS % (AUTO) 1.7 % (0.9-2.9); HEMATOCRIT 31.1 % (36.0-47.0); HEMOGLOBIN 10.4 g/dL (12.0-16.0); LYMPHOCYTES # (AUTO) 0.5 X10^3/uL (1.3-2.9); MEAN CORPUSCULAR HEMOGLOBIN 30.5 pg (27.0-34.0); MEAN CORPUSCULAR HGB CONC 33.6 g/dL (33.0-35.0); MEAN CORPUSCULAR VOLUME 90.8 fL (80.0-100.0); MEAN PLATELET VOLUME 8.4 fL (7.4-11.0); MONOCYTES # (AUTO) 0.1 x10^3/uL (0.3-0.8); MONOCYTES % (AUTO) 8.4 % (0.0-13.0); NEUTROPHILS % (AUTO) 59.2 % (42.0-75.0); PLATELET COUNT 58 X10^3/uL (150.0-450.0); RED BLOOD COUNT 3.42 X10^6/uL (3.5-5.4); RED CELL DISTRIBUTION WIDTH 18.7 % (11.6-16.5)
[2018-06-10 05:24] LABS: WHITE BLOOD COUNT 1.7 X10^3/uL (3.6-10.0)
[2018-06-10 05:29] LABS: ALANINE AMINOTRANSFERASE 29 Units/L (12-78); ALKALINE PHOSPHATASE 217 Units/L (46-116); AMYLASE 33 Units/L (25-115); ASPARTATE AMINO TRANSFERASE 50 Units/L (15-37); BLOOD UREA NITROGEN 8 mg/dL (7-18); CALCIUM 7.8 mg/dL (8.5-10.1); CARBON DIOXIDE 33.6 mmol/L (21-32); CHLORIDE 104 mmol/L (98-107); COR CA(FOR HYPOALB) 9.4 mg/dL (8.5-10.1); COR NA(FOR HYPERGLY) 141 mmol/L (136-145); CREATININE 0.84 mg/dL (0.55-1.02); LIPASE 314 Units/L (73-393); MAGNESIUM 1.7 mg/dL (1.7-2.9); SODIUM 139 mmol/L (136-145); TOTAL PROTEIN 5.8 g/dL (6.4-8.2); eGFR NON BLACK RACES > 60 (>60)
[2018-06-10] MEDS: HumuLIN R SUBCUT PRN ×4 (05:52→21:22)
[2018-06-10] MEDS: K-DUR TAB 20 MEQ PO SCH (08:48)
[2018-06-10] MEDS: PROTONIX TAB 40 MG PO SCH (08:48)
[2018-06-10] MEDS: COREG TAB 3.125 MG PO SCH ×2 (08:49→21:11)
[2018-06-10] MEDS: CELEXA PO SCH (08:49)
[2018-06-10] MEDS: ALDACTONE TAB 25 MG PO SCH ×2 (08:49→21:10)
[2018-06-10] MEDS: MAGNESIUM SULFATE 1 GRAM/100 mL PREMIX 1 GM/100 ML BAG IV PRN (08:52)
[2018-06-10] MEDS ORDERED: NS 250 ML IV 250 ML IV ONE (08:53)
[2018-06-10] MEDS: LASIX PO SCH (08:57)
--- NOTE | 2018-06-10 09:45 | RAD ---
History: Abdominal distention Study: KUB Comparison: CT scan of June 08 Findings: A large-bore catheter is seen coiled overlying the pelvis. The bowel gas pattern is unremar kable. There are prominent degenerative osteophytes throughout the lumbar spine. No abnormal calcific ation is visualized. Impression: No acute disease suggested Reported By:
--- NOTE | 2018-06-10 13:54 | PCM.PROG ---
Progress Note - Progress Note for Day of Date of Exam: 06/10/18 - Subjective Subjective: 57 WF ADMITTED ON 06/08 WITH SOB DUE TO INCREASE ASCITES. PT WAS HYPOKALEMIC ON ADMISSION, WITH IMPROVING POTASSIUM. PT HAS PANCYTOPENIA, POSITIVE OCCULT STOOL NORMAL INR. RESUME LACUTULOSE. CONSULTED DR GONZALES FOR PARACENTESIS, 7 LITERS REMOVED YESTERDAY, PLAN TO REASSESS THIS AM. CONTINUE STRICT I & OS, REVERSE CONTACT PRECAUTIONS DUE TO LEUKOPENIA - Past Medical Family Social History Past Med/Fam/Surg Hx: No changes since H&P Allergies: Allergies codeine Allergy (Verified 01/13/18 15:45) - Review of Systems ROS: No change since H&P - Vital Signs and I&O's Vital Signs: Temperature 99.0 F Pulse Rate [Left Brachial] 84 Pulse Rate [Left Apical] 67 Respiratory Rate 20 Blood Pressure [Right Arm] 103/59 Blood Pressure [Left Arm] 113/65 Blood Pressure 140/67 O2 Sat by Pulse Oximetry 100 Intake and Output: Intake & Output 06/08/18 06/09/18 06/10/18 06/11/18 11:59 11:59 11:59 11:59 Intake Total 480 / 480 2070 / 2070 Output Total 7150 / 7150 Balance 480 / 480 -5080 / -5080 - Physical Exam Oriented: Normal Eyes: Normal Ear: Normal Nose: Normal Throat: Normal Cardiovascular: Normal, Edema : Normal Auscultation: Bowel Sounds: Decreased Tenderness: Diffuse Skin: Decreased Turgur Musculoskeletal: Right, Left, Leg, Back:Lumbar Psychiatric: Depression Affect: Depressed Speech Pattern: Clear, Appropriate - Laboratory and Diagnostics Result Diagrams: 06/10/18 04:37 06/10/18 04:37 Labs: 06/09/18 12:37 Abdomen - Preliminary 06/09/18 12:38 Abdomen Gram Stain - Final Laboratory WBC 1.7 X10^3/uL (3.6-10.0) L* 06/10/18 04:37 RBC 3.42 X10^6/uL (3.5-5.4) L 06/10/18 04:37 Hgb 10.4 g/dL (12.0-16.0) L 06/10/18 04:37 Hct 31.1 % (36.0-47.0) L 06/10/18 04:37 MCV 90.8 fL (80.0-100.0) 06/10/18 04:37 MCH 30.5 pg (27.0-34.0) 06/10/18 04:37 MCHC 33.6 g/dL (33.0-35.0) 06/10/18 04:37 RDW 18.7 % (11.6-16.5) H 06/10/18 04:37 Plt Count 58 X10^3/uL (150.0-450.0) L 06/10/18 04:37 Plt Count Comment Decreased (ADEQUATE) A 06/08/18 13:21 MPV 8.4 fL (7.4-11.0) 06/10/18 04:37 Neut % (Auto) 59.2 % (42.0-75.0) 06/10/18 04:37 Lymph % (Auto) 30.0 % (21.0-51.0) 06/10/18 04:37 [place] % (Auto) 8.4 % (0.0-13.0) 06/10/18 04:37 Eos % (Auto) 1.7 % (0.9-2.9) 06/10/18 04:37 Baso % (Auto) 0.7 % (0.2-1.0) 06/10/18 04:37 Neut # (Auto) 1.0 x10^3/uL (2.2-4.8) L 06/10/18 04:37 Lymph # (Auto) 0.5 X10^3/uL (1.3-2.9) L 06/10/18 04:37 [place] # (Auto) 0.1 x10^3/uL (0.3-0.8) L 06/10/18 04:37 Eos # (Auto) 0.0 x10^3/uL (0.0-0.2) 06/10/18 04:37 Baso # (Auto) 0.0 X10^3/uL (0.0-0.1) 06/10/18 04:37 Absolute Nucleated RBC 0.1 /100WBC 06/10/18 04:37 Total Counted 100 06/08/18 13:21 Neutrophils % (Manual) 82 % (39-76) H 06/08/18 13:21 Lymphocytes % (Manual) 14 % (13-43) 06/08/18 13:21 Monocytes % (Manual) 4 % (4-9) 06/08/18 13:21 Plt Morphology Comment Normal (NORMAL) 06/08/18 13:21 RBC Morphology Normal (NORMAL) 06/08/18 13:21 INR Target Range - 06/08/18 13:21 INR 1.12 (0.8-1.3) 06/08/18 13:21 Sodium 139 mmol/L (136-145) 06/10/18 04:37 Corrected Sodium 141 mmol/L (136-145) 06/10/18 04:37 Potassium 3.8 mmol/L (3.5-5.1) 06/10/18 04:37 Chloride 104 mmol/L (98-107) 06/10/18 04:37 Carbon Dioxide 33.6 mmol/L (21-32) H 06/10/18 04:37 BUN 8 mg/dL (7-18) 06/10/18 04:37 Creatinine 0.84 mg/dL (0.55-1.02) 06/10/18 04:37 Est GFR (MDRD) Af Amer > 60 (>60) 06/10/18 04:37 Est GFR (MDRD) Non-Af > 60 (>60) 06/10/18 04:37 Glucose 184 mg/dL (65-99) H 06/10/18 04:37 POC Glucose (mg/dL) 280 mg/dL (65-99) H 06/10/18 11:32 Hemoglobin A1c 8.3 % 06/08/18 13:21 Calcium 7.8 mg/dL (8.5-10.1) L 06/10/18 04:37 Corrected Calcium 9.4 mg/dL (8.5-10.1) 06/10/18 04:37 Magnesium 1.7 mg/dL (1.7-2.9) 06/10/18 04:37 Total Bilirubin 0.70 mg/dL (0.2-1.0) 06/10/18 04:37 AST 50 Units/L (15-37) H 06/10/18 04:37 ALT 29 Units/L (12-78) 06/10/18 04:37 Alkaline Phosphatase 217 Units/L (46-116) H 06/10/18 04:37 Ammonia < 10 umol/L (11-32) L 06/10/18 04:37 Total Protein 5.8 g/dL (6.4-8.2) L 06/10/18 04:37 Albumin 2.0 g/dL (3.4-5.0) L 06/10/18 04:37 Globulin 3.8 g/dL (2.5-4.5) 06/10/18 04:37 Albumin/Globulin Ratio 0.5 Ratio (1.1-2.1) L 06/10/18 04:37 Amylase 33 Units/L (25-115) 06/10/18 04:37 Lipase 314 Units/L (73-393) 06/10/18 04:37 Specimen Type Clean catch urine 06/08/18 15:52 Urine Color Yellow (YELLOW) 06/08/18 15:52 Urine Appearance Clear (CLEAR) 06/08/18 15:52 Urine pH 7.0 (5.0 - 8.0) 06/08/18 15:52 Ur Specific [place] 1.010 (1.000-1.030) 06/08/18 15:52 Urine Protein Negative (NEGATIVE) 06/08/18 15:52 Urine Glucose (UA) Negative (NEGATIVE) 06/08/18 15:52 Urine Ketones Negative (NEGATIVE) 06/08/18 15:52 Urine Occult Blood Negative (NEGATIVE) 06/08/18 15:52 Urine Nitrite Negative (NEGATIVE) 06/08/18 15:52 Urine Bilirubin Negative (NEGATIVE) 06/08/18 15:52 Urine Urobilinogen Normal (NORMAL) 06/08/18 15:52 Ur Leukocyte Esterase Negative (NEGATIVE) 06/08/18 15:52 Stool Description 20g formed brown 06/09/18 07:33 Stl Occult Blood (IFOB) Positive (NEGATIVE) A 06/09/18 07:33 Cytology Specimen To follow 06/09/18 12:37 - Plan (1) SOB (shortness of breath) Status: Acute Plan: AM LABS CBC CMP AMMONIA LEVEL. ABD SERIES WITH CHEST XRAY, CT ABD PELVIS WITHOUT CONTRAST ON ADMISSION, DR GONZALES CONSULT FOR PARACENTESIS. STRICT I & OS SUPPLEMENTAL O2. VERIFY HOME MEDS. ELECTROLYTE REPLACEMENT PRN, BP CONTROLM BLEEDING PRECAUTIONS. REVERSE CONTACT PRECAUTIONS (2) Ascites Status: Acute Qualifiers: Ascites type: malignant Qualified Code(s): R18.0 - Malignant ascites (3) Coronary artery disease Status: Chronic (4) Pancytopenia Status: Acute (5) CHF (congestive heart failure) Status: Acute (6) Cirrhosis of liver Status: Acute (7) Acute hypokalemia Status: Acute (8) Leukopenia Status: Acute Qualifiers: Leukopenia type: unspecified Qualified Code(s): D72.819 - Decreased white blood cell count, unspecified
[2018-06-11 05:37] LABS: BASOPHILS % (AUTO) 0.6 % (0.2-1.0); EOSINOPHILS % (AUTO) 2.2 % (0.9-2.9); HEMATOCRIT 31.5 % (36.0-47.0); HEMOGLOBIN 10.6 g/dL (12.0-16.0); LYMPHOCYTES # (AUTO) 0.4 X10^3/uL (1.3-2.9); LYMPHOCYTES % (AUTO) 23.9 % (21.0-51.0); MEAN CORPUSCULAR HEMOGLOBIN 30.7 pg (27.0-34.0); MEAN CORPUSCULAR HGB CONC 33.7 g/dL (33.0-35.0); MEAN CORPUSCULAR VOLUME 91.1 fL (80.0-100.0); MEAN PLATELET VOLUME 8.8 fL (7.4-11.0); MONOCYTES # (AUTO) 0.1 x10^3/uL (0.3-0.8); MONOCYTES % (AUTO) 7.6 % (0.0-13.0); NEUTROPHILS # (AUTO) 1.2 x10^3/uL (2.2-4.8); NEUTROPHILS % (AUTO) 65.7 % (42.0-75.0); PLATELET COUNT 56 X10^3/uL (150.0-450.0); RED BLOOD COUNT 3.46 X10^6/uL (3.5-5.4); RED CELL DISTRIBUTION WIDTH 18.5 % (11.6-16.5)
[2018-06-11 05:47] LABS: WHITE BLOOD COUNT 1.9 X10^3/uL (3.6-10.0)
[2018-06-11 05:57] LABS: ALANINE AMINOTRANSFERASE 27 Units/L (12-78); ALBUMIN 1.8 g/dL (3.4-5.0); ALKALINE PHOSPHATASE 206 Units/L (46-116); ASPARTATE AMINO TRANSFERASE 55 Units/L (15-37); BLOOD UREA NITROGEN 10 mg/dL (7-18); CALCIUM 7.7 mg/dL (8.5-10.1); CARBON DIOXIDE 27.4 mmol/L (21-32); CHLORIDE 105 mmol/L (98-107); COR CA(FOR HYPOALB) 9.5 mg/dL (8.5-10.1); COR NA(FOR HYPERGLY) 139 mmol/L (136-145); CREATININE 0.76 mg/dL (0.55-1.02); TOTAL PROTEIN 5.4 g/dL (6.4-8.2); eGFR NON BLACK RACES > 60 (>60)
[2018-06-11 06:01] LABS: SODIUM 136 mmol/L (136-145)
[2018-06-11] MEDS: HumuLIN R SUBCUT PRN ×4 (06:16→20:39)
[2018-06-11 06:18] LABS: PLATELET MORPHOLOGY COMMENT NORMAL (NORMAL)
[2018-06-11] MEDS: ALDACTONE TAB 25 MG PO SCH ×2 (08:55→20:32)
[2018-06-11] MEDS: COREG TAB 3.125 MG PO SCH ×2 (08:56→20:32)
[2018-06-11] MEDS: PROTONIX TAB 40 MG PO SCH (08:56)
[2018-06-11] MEDS: K-DUR TAB 20 MEQ PO SCH (08:56)
[2018-06-11] MEDS: CELEXA PO SCH (08:56)
[2018-06-11] MEDS: LASIX PO SCH (08:56)
[2018-06-11] MEDS: SNACK - Diabetic Appropriate PO SCH (20:39)
[2018-06-12] MEDS: HumuLIN R SUBCUT PRN (05:34)
[2018-06-12 06:03] LABS: BASOPHILS % (AUTO) 0.6 % (0.2-1.0); EOSINOPHILS % (AUTO) 2.1 % (0.9-2.9); HEMATOCRIT 32.9 % (36.0-47.0); HEMOGLOBIN 11.1 g/dL (12.0-16.0); LYMPHOCYTES # (AUTO) 0.5 X10^3/uL (1.3-2.9); LYMPHOCYTES % (AUTO) 22.6 % (21.0-51.0); MEAN CORPUSCULAR HEMOGLOBIN 30.6 pg (27.0-34.0); MEAN CORPUSCULAR HGB CONC 33.8 g/dL (33.0-35.0); MEAN CORPUSCULAR VOLUME 90.4 fL (80.0-100.0); MEAN PLATELET VOLUME 8.8 fL (7.4-11.0); MONOCYTES # (AUTO) 0.2 x10^3/uL (0.3-0.8); MONOCYTES % (AUTO) 8.1 % (0.0-13.0); NEUTROPHILS # (AUTO) 1.6 x10^3/uL (2.2-4.8); NEUTROPHILS % (AUTO) 66.6 % (42.0-75.0); PLATELET COUNT 61 X10^3/uL (150.0-450.0); RED BLOOD COUNT 3.64 X10^6/uL (3.5-5.4); RED CELL DISTRIBUTION WIDTH 18.1 % (11.6-16.5); WHITE BLOOD COUNT 2.4 X10^3/uL (3.6-10.0)
[2018-06-12 06:18] LABS: ALANINE AMINOTRANSFERASE 25 Units/L (12-78); ALBUMIN 1.8 g/dL (3.4-5.0); ALKALINE PHOSPHATASE 197 Units/L (46-116); ASPARTATE AMINO TRANSFERASE 38 Units/L (15-37); BLOOD UREA NITROGEN 11 mg/dL (7-18); CALCIUM 8.1 mg/dL (8.5-10.1); CARBON DIOXIDE 27.7 mmol/L (21-32); CHLORIDE 102 mmol/L (98-107); COR CA(FOR HYPOALB) 9.9 mg/dL (8.5-10.1); COR NA(FOR HYPERGLY) 141 mmol/L (136-145); CREATININE 0.88 mg/dL (0.55-1.02); SODIUM 136 mmol/L (136-145); TOTAL PROTEIN 5.6 g/dL (6.4-8.2); eGFR NON BLACK RACES > 60 (>60)
[2018-06-12 07:02] LABS: PLATELET MORPHOLOGY COMMENT NORMAL (NORMAL)
[2018-06-12] MEDS: ALDACTONE TAB 25 MG PO SCH (09:14)
[2018-06-12] MEDS: PROTONIX TAB 40 MG PO SCH (09:15)
[2018-06-12] MEDS: K-DUR TAB 20 MEQ PO SCH (09:15)
[2018-06-12] MEDS: COREG TAB 3.125 MG PO SCH (09:22)
[2018-06-12] MEDS: CELEXA PO SCH (09:22)
[2018-06-12] MEDS: LASIX PO SCH (09:22)
[2018-06-12 09:46] VITALS: BP 138/80
== END 2018-06-12 11:35 | disposition home or self-care (01) | DRG 948 ==
LOC: MED/SURG → OBSVTOIN 12:41
PROVIDERS: ADMIT Internal Medicine; ATTEND Internal Medicine
DX: D61.818 Other pancytopenia; I50.9 Heart failure, unspecified; R53.1 Weakness; F41.8 Other specified anxiety disorders; K74.69 Other cirrhosis of liver; I25.2 Old myocardial infarction; E87.6 Hypokalemia; I25.10 Atherosclerotic heart disease of native coronary artery without angina pectoris; R10.84 Generalized abdominal pain; D72.818 Other decreased white blood cell count; E11.65 Type 2 diabetes mellitus with hyperglycemia; R18.8 Other ascites; R06.02 Shortness of breath; Z72.0 Tobacco use
CPT/HCPCS: 36415; 74000; 74018; 74022; 74176; 80053; 81003; 82140; 82150; 82270; 83036; 83690; 83735; 84132; 85025; 85610; 87070; 87205; 88112; 88305; 93005; 93010; 97162; 97165; A4222; J1815; J3475; J3480; J7050; J8499

== ENCOUNTER 2018-08-10 10:26 | Inpatient (IN) ==
[2018-08-10] MEDS ORDERED: ZOFRAN INJ 4 MG VIAL IVP ONE (10:48)
[2018-08-10] MEDS ORDERED: NS 1000 ML 1,000 ML IV ONE (10:48)
--- NOTE | 2018-08-10 10:57 | DR.NAUSEAF ---
HPI Time Seen Time Seen by Provider: 08/10/18 10:43 Primary Care Physician Primary Care Physician: moseley Complaints Chief Complaint Doctors Comments: Patient presents to the ED with complaint of being nauseated for three days. She denies fever or diarrhea. Chief Complaint:: pt has been nausea and weak for the last 3 days. she stated last night was the worst Source History Provided: Patient Mode of Arrival Mode of Arrival: Ambulatory Timing Onset of Chief Complaint: 08/07/18 PMH PMH Past Medical History: Yes Past Medical History: Anemia, Angina, Anxiety, Arthritis, Cirrhosis, COPD, Coronary Artery Disease, Depression, Diabetes, GERD, Hypertension, Liver Disease and NV Past Surgical History: Yes Surgical History: Angioplasty/Stents Family History History of Family Medical Conditions: Yes Family Medical History: Diabetes Mellitus, [place] and Sudden Cardiac Social History Does patient currently use any type of tobacco product: Yes Have you used tobacco products in the last 12 months: Yes Type of Tobacco Use: Cigars How many years tobacco product used: 45 Does any household member use tobacco: No Alcohol Use: None Do you use any recreational Drugs:: No Lives With: Family Lives Where: Home infectious screening In the last 2 months have you had wt loss of >10#?: NO Have you had fever, night sweats or hemotysis?: No Have you traveled outside the country in the last 6 months?: No Isolation: Standard PE Vital Signs Vitals: Temperature 98.8 F Pulse Rate 101 Respiratory Rate 18 Blood Pressure [Right Arm] 138/80 Blood Pressure [Left Arm] 114/63 Blood Pressure 135/74 O2 Sat by Pulse Oximetry 99 General Limitations: No Limitations General Appearance: Alert, In No Apparent Distress and Anxious Head Head Exam: Normal Inspection, Atraumatic and Normocephalic Eyes Eye exam: Normal Appearance and PERRL ENT ENT Exam: Normal Exam and Normal Oropharynx Neck Neck Exam: Normal Inspection and Full ROM Chest Chest Inspection: Normal Inspection and Symmetric Chest Wall Rise Respiratory Respiratory Exam: Normal Lung Sounds Bilat Respiratory Exam: Bilateral: Clear to Auscultation Cardiovascular Cardiovascular Exam: Regular Rate and Normal Rhythm Abdominal Exam Abdominal Exam: Normal Inspection, Normal Bowel Sounds and Soft Abdominal Tenderness: negative RUQ, RLQ and LUQ Rectal Rectal Exam: Deferred External Exam: Female: Deferred : Bimanual Exam (female): Deferred Back Back Exam: Normal Inspection Neurologic Neurological Exam: Alert, Oriented X3 and CN II-XII Intact Psychiatric Psychiatric Exam: Normal Affect Skin Skin Exam: Warm, Dry and Intact COURSE Treatment Treatment: [id number] Consultation Called: 12:15 Consultation Comments: Dr. Moseley agreed to admit for further treatment and evaluation ROR Labs Reviewed Laboratory Results Reviewed?: Yes Result Diagrams: 08/10/18 11:13 08/10/18 11:13 Laboratory: WBC 7.7 X10^3/uL (3.6-10.0) 08/10/18 11:13 RBC 4.05 X10^6/uL (3.5-5.4) 08/10/18 11:13 Hgb 12.8 g/dL (12.0-16.0) 08/10/18 11:13 Hct 37.9 % (36.0-47.0) 08/10/18 11:13 MCV 93.5 fL (80.0-100.0) 08/10/18 11:13 MCH 31.5 pg (27.0-34.0) 08/10/18 11:13 MCHC 33.7 g/dL (33.0-35.0) 08/10/18 11:13 RDW 15.8 % (11.6-16.5) 08/10/18 11:13 Plt Count 143 X10^3/uL (150.0-450.0) L 08/10/18 11:13 MPV 7.6 fL (7.4-11.0) 08/10/18 11:13 Neut % (Auto) 85.5 % (42.0-75.0) H 08/10/18 11:13 Lymph % (Auto) 8.8 % (21.0-51.0) L 08/10/18 11:13 [place] % (Auto) 5.2 % (0.0-13.0) 08/10/18 11:13 Eos % (Auto) 0.1 % (0.9-2.9) L 08/10/18 11:13 Baso % (Auto) 0.4 % (0.2-1.0) 08/10/18 11:13 Neut # (Auto) 6.5 x10^3/uL (2.2-4.8) H 08/10/18 11:13 Lymph # (Auto) 0.7 X10^3/uL (1.3-2.9) L 08/10/18 11:13 [place] # (Auto) 0.4 x10^3/uL (0.3-0.8) 08/10/18 11:13 Eos # (Auto) 0.0 x10^3/uL (0.0-0.2) 08/10/18 11:13 Baso # (Auto) 0.0 X10^3/uL (0.0-0.1) 08/10/18 11:13 Absolute Nucleated RBC 0.0 /100WBC 08/10/18 11:13 Sodium 124 mmol/L (136-145) L* 08/10/18 11:13 Corrected Sodium 133 mmol/L (136-145) L 08/10/18 11:13 Potassium 4.5 mmol/L (3.5-5.1) 08/10/18 11:13 Chloride 91 mmol/L (98-107) L 08/10/18 11:13 Carbon Dioxide 26.4 mmol/L (21-32) 08/10/18 11:13 BUN 22 mg/dL (7-18) H 08/10/18 11:13 Creatinine 1.09 mg/dL (0.55-1.02) H 08/10/18 11:13 Est GFR (MDRD) Af Amer > 60 (>60) 08/10/18 11:13 Est GFR (MDRD) Non-Af 55 (>60) L 08/10/18 11:13 Glucose 477 mg/dL (65-99) H 08/10/18 11:13 Calcium 9.0 mg/dL (8.5-10.1) 08/10/18 11:13 Corrected Calcium 10.6 mg/dL (8.5-10.1) H 08/10/18 11:13 Total Bilirubin 1.10 mg/dL (0.2-1.0) H 08/10/18 11:13 AST 34 Units/L (15-37) 08/10/18 11:13 ALT 45 Units/L (12-78) 08/10/18 11:13 Alkaline Phosphatase 318 Units/L (46-116) H 08/10/18 11:13 Total Protein 6.8 g/dL (6.4-8.2) 08/10/18 11:13 Albumin 2.0 g/dL (3.4-5.0) L 08/10/18 11:13 Globulin 4.8 g/dL (2.5-4.5) H 08/10/18 11:13 Albumin/Globulin Ratio 0.4 Ratio (1.1-2.1) L 08/10/18 11:13 Other Results Comments: CT Abdomen: Small fluid throughout the proximal small bowel with mild associated mucosal thickening and enhancement, suggestive for mild enteritis. Suspected cholelithiasis without convincing evidence of acute cholecystitis. Trace volume abdominal pelvic ascites, likely reactive. 5mm left lower lobe nodule. Comparison with prior imaging if available or further evaluation with dedicated CT chest is recommended if clinically indicated. Diagnosis Discharge Problem: Acute hyponatremia, Acute hyperglycemia, Intractable vomiting
[2018-08-10] MEDS ORDERED: NS 1000 ML 1,000 ML ONE (11:01)
[2018-08-10] MEDS ORDERED: ZOFRAN INJ 4 MG VIAL ONE (11:14)
[2018-08-10 11:20] LABS: BASOPHILS % (AUTO) 0.4 % (0.2-1.0); EOSINOPHILS % (AUTO) 0.1 % (0.9-2.9); HEMATOCRIT 37.9 % (36.0-47.0); HEMOGLOBIN 12.8 g/dL (12.0-16.0); LYMPHOCYTES # (AUTO) 0.7 X10^3/uL (1.3-2.9); LYMPHOCYTES % (AUTO) 8.8 % (21.0-51.0); MEAN CORPUSCULAR HEMOGLOBIN 31.5 pg (27.0-34.0); MEAN CORPUSCULAR HGB CONC 33.7 g/dL (33.0-35.0); MEAN CORPUSCULAR VOLUME 93.5 fL (80.0-100.0); MEAN PLATELET VOLUME 7.6 fL (7.4-11.0); MONOCYTES # (AUTO) 0.4 x10^3/uL (0.3-0.8); MONOCYTES % (AUTO) 5.2 % (0.0-13.0); NEUTROPHILS # (AUTO) 6.5 x10^3/uL (2.2-4.8); NEUTROPHILS % (AUTO) 85.5 % (42.0-75.0); PLATELET COUNT 143 X10^3/uL (150.0-450.0); RED BLOOD COUNT 4.05 X10^6/uL (3.5-5.4); RED CELL DISTRIBUTION WIDTH 15.8 % (11.6-16.5); WHITE BLOOD COUNT 7.7 X10^3/uL (3.6-10.0)
[2018-08-10 11:34] LABS: ALANINE AMINOTRANSFERASE 45 Units/L (12-78); ALKALINE PHOSPHATASE 318 Units/L (46-116); ASPARTATE AMINO TRANSFERASE 34 Units/L (15-37); BLOOD UREA NITROGEN 22 mg/dL (7-18); CARBON DIOXIDE 26.4 mmol/L (21-32); CHLORIDE 91 mmol/L (98-107); COR CA(FOR HYPOALB) 10.6 mg/dL (8.5-10.1); COR NA(FOR HYPERGLY) 133 mmol/L (136-145); CREATININE 1.09 mg/dL (0.55-1.02); TOTAL PROTEIN 6.8 g/dL (6.4-8.2); eGFR NON BLACK RACES 55 (>60)
[2018-08-10 11:37] LABS: SODIUM 124 mmol/L (136-145)
[2018-08-10] MEDS: NS 1000 ML 1,000 ML IV SCH ×2 (12:51→21:36)
[2018-08-10] MEDS ORDERED: HumuLIN R ONE (12:56)
[2018-08-10] MEDS ORDERED: NS 1000 ML 1,000 ML IV SCH (13:00)
[2018-08-10] MEDS ORDERED: HumuLIN R SUBCUT PRN ×2 (13:01→13:49)
[2018-08-10] MEDS: HumuLIN R SUBCUT PRN ×2 (13:02→17:11)
--- NOTE | 2018-08-10 14:03 | RAD ---
HISTORY: Vomiting Study: Frontal view of the chest, flat and upright views of the abdomen Comparison: None. Findings: Cardiomediastinal silhouette is normal in size. No focal consolidations, pleural effusions or pneumot horax. Osseous structures are without acute abnormality. Flat and upright views of the abdomen demonstrates a normal bowel gas pattern. No free air. No abnor mal calcifications or abnormal soft tissue shadows. No acute bony abnormalities. IMPRESSION: 1. No acute cardiopulmonary disease. 2. No evidence for acute abdominal pathology. Reported By:
[2018-08-10] MEDS ORDERED: NITROSTAT SL PRN (14:34)
[2018-08-10] MEDS: LASIX PO SCH (15:23)
[2018-08-10 17:45] LABS: BILIRUBIN,URINE NEGATIVE (NEGATIVE); BLOOD/HEMOGLOBIN,URINE 1+ (NEGATIVE); GLUCOSE, URINE 4+ (NEGATIVE); KETONES,URINE NEGATIVE (NEGATIVE); LEUKOCYTE ESTERASE ,URINE 1+ (NEGATIVE); NITRITES,URINE NEGATIVE (NEGATIVE); PROTEIN,URINE NEGATIVE (NEGATIVE); UROBILINOGEN,URINE NORMAL (NORMAL)
[2018-08-10 17:46] LABS: APPEARANCE,URINE CLEAR (CLEAR); COLOR,URINE YELLOW (YELLOW)
[2018-08-10 18:05] LABS: BACTERIA,URINE TRACE /HPF (NEGATIVE); SQUAMOUS EPITHELIAL CELL,UR MODERATE /HPF (NEGATIVE); YEAST,URINE RARE /HPF (NEGATIVE)
[2018-08-10] MEDS ORDERED: SNACK - Diabetic Appropriate PO SCH ×2 (20:00)
[2018-08-10] MEDS: ZOFRAN INJ 4 MG VIAL IVP PRN (20:19)
[2018-08-10] MEDS ORDERED: COREG TAB 3.125 MG PO SCH (21:00)
[2018-08-10] MEDS: COREG TAB 6.25 MG PO SCH (21:31)
[2018-08-10] MEDS: ALDACTONE TAB 25 MG PO SCH (21:31)
[2018-08-10] MEDS: NAMENDA TAB 10 MG PO SCH (21:31)
[2018-08-10] MEDS: HumuLIN 70/30 (NovoLIN 70/30) SC SCH (21:31)
[2018-08-10] MEDS: SNACK - Diabetic Appropriate PO SCH (23:35)
[2018-08-11] MEDS: NS 1000 ML 1,000 ML IV SCH ×3 (05:45→20:32)
[2018-08-11] MEDS: HumuLIN R SC PRN ×3 (05:45→16:47)
[2018-08-11] MEDS: ZOFRAN INJ 4 MG VIAL IVP PRN ×2 (05:49→16:56)
[2018-08-11 06:24] LABS: ALANINE AMINOTRANSFERASE 41 Units/L (12-78); ALBUMIN 1.4 g/dL (3.4-5.0); ALKALINE PHOSPHATASE 255 Units/L (46-116); BLOOD UREA NITROGEN 18 mg/dL (7-18); CARBON DIOXIDE 25.2 mmol/L (21-32); CHLORIDE 99 mmol/L (98-107); COR CA(FOR HYPOALB) 10.1 mg/dL (8.5-10.1); CREATININE 0.83 mg/dL (0.55-1.02); TOTAL PROTEIN 5.3 g/dL (6.4-8.2); eGFR NON BLACK RACES > 60 (>60)
[2018-08-11 06:49] LABS: BASOPHILS % (AUTO) 0.7 % (0.2-1.0); EOSINOPHILS % (AUTO) 1.2 % (0.9-2.9); HEMATOCRIT 30.8 % (36.0-47.0); HEMOGLOBIN 10.6 g/dL (12.0-16.0); LYMPHOCYTES # (AUTO) 0.5 X10^3/uL (1.3-2.9); LYMPHOCYTES % (AUTO) 18.1 % (21.0-51.0); MEAN CORPUSCULAR HEMOGLOBIN 31.8 pg (27.0-34.0); MEAN CORPUSCULAR HGB CONC 34.3 g/dL (33.0-35.0); MEAN CORPUSCULAR VOLUME 92.8 fL (80.0-100.0); MEAN PLATELET VOLUME 7.4 fL (7.4-11.0); MONOCYTES # (AUTO) 0.3 x10^3/uL (0.3-0.8); MONOCYTES % (AUTO) 8.7 % (0.0-13.0); NEUTROPHILS # (AUTO) 2.1 x10^3/uL (2.2-4.8); NEUTROPHILS % (AUTO) 71.3 % (42.0-75.0); PLATELET COUNT 77 X10^3/uL (150.0-450.0); RED BLOOD COUNT 3.32 X10^6/uL (3.5-5.4); RED CELL DISTRIBUTION WIDTH 15.7 % (11.6-16.5)
[2018-08-11 07:08] LABS: ASPARTATE AMINO TRANSFERASE 41 Units/L (15-37); COR NA(FOR HYPERGLY) 133 mmol/L (136-145); SODIUM 129 mmol/L (136-145)
[2018-08-11] MEDS: COREG TAB 6.25 MG PO SCH ×2 (09:59→20:34)
[2018-08-11] MEDS: ALDACTONE TAB 25 MG PO SCH ×2 (09:59→20:33)
[2018-08-11] MEDS: ASPIRIN 81 MG CHEWTAB PO SCH (10:08)
[2018-08-11] MEDS: HumuLIN 70/30 (NovoLIN 70/30) SC SCH ×2 (10:08→20:34)
[2018-08-11] MEDS: LASIX PO SCH (10:09)
[2018-08-11] MEDS: PLAVIX PO SCH (10:09)
[2018-08-11] MEDS: CELEXA PO SCH (10:10)
[2018-08-11] MEDS: PROTONIX TAB 40 MG PO SCH (10:10)
[2018-08-11] MEDS: SNACK - Diabetic Appropriate PO SCH (20:32)
[2018-08-11] MEDS: NAMENDA TAB 10 MG PO SCH (20:34)
[2018-08-12] MEDS: NS 1000 ML 1,000 ML IV SCH ×4 (03:42→23:15)
[2018-08-12 05:33] LABS: BASOPHILS % (AUTO) 0.4 % (0.2-1.0); EOSINOPHILS # (AUTO) 0.1 x10^3/uL (0.0-0.2); EOSINOPHILS % (AUTO) 2.1 % (0.9-2.9); HEMATOCRIT 32.8 % (36.0-47.0); HEMOGLOBIN 11.2 g/dL (12.0-16.0); LYMPHOCYTES # (AUTO) 0.6 X10^3/uL (1.3-2.9); LYMPHOCYTES % (AUTO) 18.4 % (21.0-51.0); MEAN CORPUSCULAR HEMOGLOBIN 31.8 pg (27.0-34.0); MEAN CORPUSCULAR HGB CONC 34.3 g/dL (33.0-35.0); MEAN CORPUSCULAR VOLUME 92.5 fL (80.0-100.0); MEAN PLATELET VOLUME 7.3 fL (7.4-11.0); MONOCYTES # (AUTO) 0.3 x10^3/uL (0.3-0.8); MONOCYTES % (AUTO) 8.5 % (0.0-13.0); NEUTROPHILS # (AUTO) 2.5 x10^3/uL (2.2-4.8); NEUTROPHILS % (AUTO) 70.6 % (42.0-75.0); PLATELET COUNT 82 X10^3/uL (150.0-450.0); RED BLOOD COUNT 3.54 X10^6/uL (3.5-5.4); RED CELL DISTRIBUTION WIDTH 15.9 % (11.6-16.5); WHITE BLOOD COUNT 3.5 X10^3/uL (3.6-10.0)
[2018-08-12 06:07] LABS: ALANINE AMINOTRANSFERASE 55 Units/L (12-78); ALBUMIN 1.4 g/dL (3.4-5.0); ALKALINE PHOSPHATASE 307 Units/L (46-116); ASPARTATE AMINO TRANSFERASE 74 Units/L (15-37); BLOOD UREA NITROGEN 16 mg/dL (7-18); CALCIUM 7.9 mg/dL (8.5-10.1); CARBON DIOXIDE 22.9 mmol/L (21-32); CHLORIDE 102 mmol/L (98-107); COR NA(FOR HYPERGLY) 133 mmol/L (136-145); CREATININE 0.75 mg/dL (0.55-1.02); SODIUM 132 mmol/L (136-145); TOTAL PROTEIN 5.2 g/dL (6.4-8.2); eGFR NON BLACK RACES > 60 (>60)
[2018-08-12] MEDS: LASIX PO SCH (08:55)
[2018-08-12] MEDS: ALDACTONE TAB 25 MG PO SCH ×2 (08:55→21:56)
[2018-08-12] MEDS: COREG TAB 6.25 MG PO SCH ×2 (08:55→21:56)
[2018-08-12] MEDS: ASPIRIN 81 MG CHEWTAB PO SCH (08:56)
[2018-08-12] MEDS: PROTONIX TAB 40 MG PO SCH (08:56)
[2018-08-12] MEDS: CELEXA PO SCH (08:56)
[2018-08-12] MEDS: PLAVIX PO SCH (08:57)
[2018-08-12] MEDS: HumuLIN 70/30 (NovoLIN 70/30) SC SCH ×2 (09:05→20:47)
[2018-08-12] MEDS: HumuLIN R SC PRN ×2 (12:33→17:34)
--- NOTE | 2018-08-12 14:56 | DR.H&P ---
H&P - History & Physical for Day of: H&P Date: 08/10/18 - Chief Complaint Chief Complaint: Patient presents to the ED with complaint of being nauseated for three days. She denies fever or diarrhea. - History of Present Illness History of Present Illness: 57 WF ER ADMISSION ON 08/10 WITH CO NAUSEA AND VOMITING. PT HAS PMH OF CIRRHOSIS WITH INDWELLING PARACENTESIS CATH. PT ALSO HAD CHF, CAD, OA, HTN, GERD AND HX GALLSTONES. PT STATE SHE HAD BEEN VERY DIZZY, REMOVED APPROX 2LITERS PRIOR TO ADMISSION BUT CONTINUES WITH WEAKNESS. PT THOUGHT COREG MAY BE MAKING HER "TOO DRUNK". WBC ON ADMISSION 7.7 NA 129, HYPERGLYCEMIC AND HYPOTENSIVE - Past Medical History Past Medical History: Angina, MT, Coronary Artery Disease, Hypertension, Diabetes, Liver Disease, Cirrhosis, Depression, Anxiety, Anemia, COPD, GERD, Arthritis - Past Surgical History Surgical History: Angioplasty/Stents, Other - Family History Family Medical History: Diabetes Mellitus, MT, Sudden Cardiac - Social History Does patient currently use any type of tobacco product: Yes Have you used tobacco products in the last 12 months: Yes Type of Tobacco Use: Cigars How many years tobacco product used: 45 Does any household member use tobacco: No Alcohol Use: None Drug Use: Prescription Drugs - Medications Home Medications: codeine Allergy (Verified 08/10/18 10:27) CONTINUE taking the following medications carvedilol [Coreg] 6.25 mg PO BID 08/10/18 [History] - Review of Systems Constitutional: Weakness Eyes: No Symptoms Reported ENT: No Symptoms Reported Respiratory: Shortness of Breath Cardiovascular: No Symptoms Reported Gastrointestinal: Nausea, Vomiting Musculoskeletal: No Symptoms Reported Skin: No Symptoms Reported Neurological: Weakness - Physical Exam Vital Signs: Temperature 97.9 F Pulse Rate [Left Brachial] 84 Pulse Rate 87 Respiratory Rate 20 Blood Pressure [Right Arm] 109/58 Blood Pressure [Left Arm] 103/50 Blood Pressure 123/58 O2 Sat by Pulse Oximetry 100 Oriented: Normal Eyes: Normal Ear: Normal, Left Throat: Normal Respiratory: RML Diminished, RLL Diminished, LML Diminished, LLL Diminished Cardiovascular: Edema : Normal Auscultation: Bowel Sounds: Normal Palpation: Liver Enlarged Tenderness: Diffuse Skin: Decreased Turgur Musculoskeletal: Normal Mood Description: Calm Speech Pattern: Clear, Appropriate - Assessment/Plan (1) Generalized weakness Status: Acute (2) Acute hyponatremia Status: Acute Plan: ADMIT, GENTLE HYDRATION. STRICT I & OS, VERIFY HOME MEDS. BP CONTROL, REPEAT AM LABS. UA, CBC CMP ON ADMISSION. ADD AMMONIA LEVEL, ABD XRAY. RESP THERAPY PRN (3) Thrombocytopenia Status: Acute (4) Dizziness Status: Acute (5) CHF (congestive heart failure) Status: Acute (6) Cirrhosis of liver Status: Acute (7) Ascites Qualifiers: Ascites type: malignant Qualified Code(s): R18.0 - Malignant ascites Status: Acute (8) Acute hyperglycemia Status: Acute (9) Cholelithiasis Qualifiers: Cholelithiasis location: gallbladder Cholecystitis presence: without cholecystitis Biliary obstruction: with biliary obstruction Qualified Code(s): K80.21 - Calculus of gallbladder without cholecystitis with obstruction Status: Acute - Allergies Allergies/Adverse Reactions: Allergies Allergy/AdvReac Type Severity Reaction Status Date / Time codeine Allergy Verified 08/10/18 10:27
--- NOTE | 2018-08-12 15:02 | PCM.PROG ---
Progress Note - Progress Note for Day of Date of Exam: 08/11/18 - Subjective Subjective: 57 WF ER ADMISSION WITH GENERALIZED WEAKNESS, HYPOTENSION. PT HAD KNOWN CIRRHOSIS WITH ASCITES. PT CONTINUES WITH HYPONATREMIA. WE DECREASED COREG TO 3.125 BID. PT REPORTS FEELING A LITTLE BETTER THIS AM. CONTINUES WITH DIFFUSE ABDOMINAL DISTENTION. PT HAD INDWELLING CATH FOR PARACENTESIS. CONSULTED DR GONZALES FOR EVALUATION. CONTINUE TO ENCOURAGE ORAL NUTRITION, BP CONTROL, AMMONIA STABLE - Past Medical Family Social History Past Med/Fam/Surg Hx: No changes since H&P Allergies: Allergies codeine Allergy (Verified 08/10/18 10:27) - Review of Systems ROS: No change since H&P - Vital Signs and I&O's Vital Signs: Temperature 97.9 F Pulse Rate [Left Brachial] 84 Pulse Rate 87 Respiratory Rate 20 Blood Pressure [Right Arm] 109/58 Blood Pressure [Left Arm] 103/50 Blood Pressure 123/58 O2 Sat by Pulse Oximetry 100 Intake and Output: Intake & Output 08/10/18 08/11/18 08/12/18 08/13/18 11:59 11:59 11:59 11:59 Intake Total 1277 / 1277 1470 / 1470 Output Total 20 / 20 0 / 0 Balance -20 / -20 1277 / 1277 1470 / 1470 - Physical Exam Oriented: Normal Eyes: Normal Ear: Normal, Left Throat: Normal Respiratory: Diminished Cardiovascular: Edema : Normal Auscultation: Bowel Sounds: Normal Tenderness: Diffuse Skin: Decreased Turgur Musculoskeletal: Normal Mood Description: Calm Speech Pattern: Clear, Appropriate - Laboratory and Diagnostics Result Diagrams: 08/12/18 04:45 08/12/18 04:45 Labs: Laboratory WBC 3.5 X10^3/uL (3.6-10.0) L 08/12/18 04:45 RBC 3.54 X10^6/uL (3.5-5.4) 08/12/18 04:45 Hgb 11.2 g/dL (12.0-16.0) L 08/12/18 04:45 Hct 32.8 % (36.0-47.0) L 08/12/18 04:45 MCV 92.5 fL (80.0-100.0) 08/12/18 04:45 MCH 31.8 pg (27.0-34.0) 08/12/18 04:45 MCHC 34.3 g/dL (33.0-35.0) 08/12/18 04:45 RDW 15.9 % (11.6-16.5) 08/12/18 04:45 Plt Count 82 X10^3/uL (150.0-450.0) L 08/12/18 04:45 MPV 7.3 fL (7.4-11.0) L 08/12/18 04:45 Neut % (Auto) 70.6 % (42.0-75.0) 08/12/18 04:45 Lymph % (Auto) 18.4 % (21.0-51.0) L 08/12/18 04:45 [place] % (Auto) 8.5 % (0.0-13.0) 08/12/18 04:45 Eos % (Auto) 2.1 % (0.9-2.9) 08/12/18 04:45 Baso % (Auto) 0.4 % (0.2-1.0) 08/12/18 04:45 Neut # (Auto) 2.5 x10^3/uL (2.2-4.8) 08/12/18 04:45 Lymph # (Auto) 0.6 X10^3/uL (1.3-2.9) L 08/12/18 04:45 [place] # (Auto) 0.3 x10^3/uL (0.3-0.8) 08/12/18 04:45 Eos # (Auto) 0.1 x10^3/uL (0.0-0.2) 08/12/18 04:45 Baso # (Auto) 0.0 X10^3/uL (0.0-0.1) 08/12/18 04:45 Absolute Nucleated RBC 0.1 /100WBC 08/12/18 04:45 Sodium 132 mmol/L (136-145) L 08/12/18 04:45 Corrected Sodium 133 mmol/L (136-145) L 08/12/18 04:45 Potassium 4.1 mmol/L (3.5-5.1) 08/12/18 04:45 Chloride 102 mmol/L (98-107) 08/12/18 04:45 Carbon Dioxide 22.9 mmol/L (21-32) 08/12/18 04:45 BUN 16 mg/dL (7-18) 08/12/18 04:45 Creatinine 0.75 mg/dL (0.55-1.02) 08/12/18 04:45 Est GFR (MDRD) Af Amer > 60 (>60) 08/12/18 04:45 Est GFR (MDRD) Non-Af > 60 (>60) 08/12/18 04:45 Glucose 157 mg/dL (65-99) H 08/12/18 04:45 POC Glucose (mg/dL) 398 mg/dL (65-99) H 08/10/18 20:24 Calcium 7.9 mg/dL (8.5-10.1) L 08/12/18 04:45 Corrected Calcium 10.0 mg/dL (8.5-10.1) 08/12/18 04:45 Magnesium 1.8 mg/dL (1.7-2.9) 08/11/18 06:31 Total Bilirubin 0.50 mg/dL (0.2-1.0) 08/12/18 04:45 AST 74 Units/L (15-37) H 08/12/18 04:45 ALT 55 Units/L (12-78) 08/12/18 04:45 Alkaline Phosphatase 307 Units/L (46-116) H 08/12/18 04:45 Ammonia 31 umol/L (11-32) 08/10/18 15:57 Total Protein 5.2 g/dL (6.4-8.2) L 08/12/18 04:45 Albumin 1.4 g/dL (3.4-5.0) L 08/12/18 04:45 Globulin 3.8 g/dL (2.5-4.5) 08/12/18 04:45 Albumin/Globulin Ratio 0.4 Ratio (1.1-2.1) L 08/12/18 04:45 Specimen Type Clean catch urine 08/10/18 17:25 Urine Color Yellow (YELLOW) 08/10/18 17:25 Urine Appearance Clear (CLEAR) 08/10/18 17:25 Urine pH 6.0 (5.0 - 8.0) 08/10/18 17:25 Ur Specific [place] 1.015 (1.000-1.030) 08/10/18 17:25 Urine Protein Negative (NEGATIVE) 08/10/18 17:25 Urine Glucose (UA) 4+ (NEGATIVE) 08/10/18 17:25 Urine Ketones Negative (NEGATIVE) 08/10/18 17:25 Urine Occult Blood 1+ (NEGATIVE) 08/10/18 17:25 Urine Nitrite Negative (NEGATIVE) 08/10/18 17:25 Urine Bilirubin Negative (NEGATIVE) 08/10/18 17:25 Urine Urobilinogen Normal (NORMAL) 08/10/18 17:25 Ur Leukocyte Esterase 1+ (NEGATIVE) 08/10/18 17:25 Urine RBC 3-5 /HPF (NONE SEEN) 08/10/18 17:25 Urine WBC 3-5 /HPF (NONE SEEN) 08/10/18 17:25 Ur Squamous Epith Cells Moderate /HPF (NEGATIVE) 08/10/18 17:25 Urine Bacteria Trace /HPF (NEGATIVE) 08/10/18 17:25 Urine Yeast Rare /HPF (NEGATIVE) 08/10/18 17:25 Ur Culture Indicated? No/not indicated 08/10/18 17:25 - Plan (1) Acute hyponatremia Status: Acute Plan: GENTLE HYDRATION. STRICT I & OS, VERIFY HOME MEDS. BP CONTROL, BLOOD SUGAR CONTROL. UA ON ADMISSION, CBC CMP Q AM. AMMONIA LEVEL, ABD XRAY. RESP THERAPY PRN (2) Generalized weakness Status: Acute (3) Thrombocytopenia Status: Acute (4) Dizziness Status: Acute (5) CHF (congestive heart failure) Status: Acute Plan: COREG 3.125 BID, BP CONTROL (6) Cirrhosis of liver Status: Acute (7) Ascites Status: Acute Qualifiers: Ascites type: malignant Qualified Code(s): R18.0 - Malignant ascites (8) Acute hyperglycemia Status: Acute (9) Cholelithiasis Status: Acute Qualifiers: Cholelithiasis location: gallbladder Cholecystitis presence: without cholecystitis Biliary obstruction: with biliary obstruction Qualified Code(s): K80.21 - Calculus of gallbladder without cholecystitis with obstruction
--- NOTE | 2018-08-12 15:08 | PCM.PROG ---
Progress Note - Progress Note for Day of Date of Exam: 08/12/18 - Subjective Subjective: 57 WF ER ADMISSION WITH GENERALIZED WEAKNESS, HYPOTENSION. PT HAD KNOWN CIRRHOSIS WITH ASCITES. PT CONTINUES WITH HYPONATREMIA. WE DECREASED COREG TO 3.125 BID. PT REPORTS FEELING A LITTLE BETTER THIS AM. CONTINUES WITH DIFFUSE ABDOMINAL DISTENTION. PT HAD INDWELLING CATH FOR PARACENTESIS. CONSULTED DR GONZALES, PT HAD 2 LITERS REMOVED EVENING OF 08/11. CONTINUE TO ENCOURAGE ORAL NUTRITION, BP CONTROL, AMMONIA STABLE. ACETONE LEVEL AND GLUCERNA SUPPLEMENT - Past Medical Family Social History Past Med/Fam/Surg Hx: No changes since H&P Allergies: Allergies codeine Allergy (Verified 08/10/18 10:27) - Review of Systems ROS: No change since H&P - Vital Signs and I&O's Vital Signs: Temperature 97.9 F Pulse Rate [Left Brachial] 84 Pulse Rate 87 Respiratory Rate 20 Blood Pressure [Right Arm] 109/58 Blood Pressure [Left Arm] 103/50 Blood Pressure 123/58 O2 Sat by Pulse Oximetry 100 Intake and Output: Intake & Output 08/10/18 08/11/18 08/12/18 08/13/18 11:59 11:59 11:59 11:59 Intake Total 1277 / 1277 1470 / 1470 Output Total 20 / 20 0 / 0 Balance -20 / -20 1277 / 1277 1470 / 1470 - Physical Exam Oriented: Normal Eyes: Normal Ear: Normal, Left Throat: Normal Respiratory: Diminished Cardiovascular: Edema : Normal Auscultation: Bowel Sounds: Normal Tenderness: Diffuse Skin: Decreased Turgur Musculoskeletal: Normal Mood Description: Calm Speech Pattern: Clear, Appropriate - Laboratory and Diagnostics Result Diagrams: 08/12/18 04:45 08/12/18 04:45 Labs: Laboratory WBC 3.5 X10^3/uL (3.6-10.0) L 08/12/18 04:45 RBC 3.54 X10^6/uL (3.5-5.4) 08/12/18 04:45 Hgb 11.2 g/dL (12.0-16.0) L 08/12/18 04:45 Hct 32.8 % (36.0-47.0) L 08/12/18 04:45 MCV 92.5 fL (80.0-100.0) 08/12/18 04:45 MCH 31.8 pg (27.0-34.0) 08/12/18 04:45 MCHC 34.3 g/dL (33.0-35.0) 08/12/18 04:45 RDW 15.9 % (11.6-16.5) 08/12/18 04:45 Plt Count 82 X10^3/uL (150.0-450.0) L 08/12/18 04:45 MPV 7.3 fL (7.4-11.0) L 08/12/18 04:45 Neut % (Auto) 70.6 % (42.0-75.0) 08/12/18 04:45 Lymph % (Auto) 18.4 % (21.0-51.0) L 08/12/18 04:45 [place] % (Auto) 8.5 % (0.0-13.0) 08/12/18 04:45 Eos % (Auto) 2.1 % (0.9-2.9) 08/12/18 04:45 Baso % (Auto) 0.4 % (0.2-1.0) 08/12/18 04:45 Neut # (Auto) 2.5 x10^3/uL (2.2-4.8) 08/12/18 04:45 Lymph # (Auto) 0.6 X10^3/uL (1.3-2.9) L 08/12/18 04:45 [place] # (Auto) 0.3 x10^3/uL (0.3-0.8) 08/12/18 04:45 Eos # (Auto) 0.1 x10^3/uL (0.0-0.2) 08/12/18 04:45 Baso # (Auto) 0.0 X10^3/uL (0.0-0.1) 08/12/18 04:45 Absolute Nucleated RBC 0.1 /100WBC 08/12/18 04:45 Sodium 132 mmol/L (136-145) L 08/12/18 04:45 Corrected Sodium 133 mmol/L (136-145) L 08/12/18 04:45 Potassium 4.1 mmol/L (3.5-5.1) 08/12/18 04:45 Chloride 102 mmol/L (98-107) 08/12/18 04:45 Carbon Dioxide 22.9 mmol/L (21-32) 08/12/18 04:45 BUN 16 mg/dL (7-18) 08/12/18 04:45 Creatinine 0.75 mg/dL (0.55-1.02) 08/12/18 04:45 Est GFR (MDRD) Af Amer > 60 (>60) 08/12/18 04:45 Est GFR (MDRD) Non-Af > 60 (>60) 08/12/18 04:45 Glucose 157 mg/dL (65-99) H 08/12/18 04:45 POC Glucose (mg/dL) 398 mg/dL (65-99) H 08/10/18 20:24 Calcium 7.9 mg/dL (8.5-10.1) L 08/12/18 04:45 Corrected Calcium 10.0 mg/dL (8.5-10.1) 08/12/18 04:45 Magnesium 1.8 mg/dL (1.7-2.9) 08/11/18 06:31 Total Bilirubin 0.50 mg/dL (0.2-1.0) 08/12/18 04:45 AST 74 Units/L (15-37) H 08/12/18 04:45 ALT 55 Units/L (12-78) 08/12/18 04:45 Alkaline Phosphatase 307 Units/L (46-116) H 08/12/18 04:45 Ammonia 31 umol/L (11-32) 08/10/18 15:57 Total Protein 5.2 g/dL (6.4-8.2) L 08/12/18 04:45 Albumin 1.4 g/dL (3.4-5.0) L 08/12/18 04:45 Globulin 3.8 g/dL (2.5-4.5) 08/12/18 04:45 Albumin/Globulin Ratio 0.4 Ratio (1.1-2.1) L 08/12/18 04:45 Specimen Type Clean catch urine 08/10/18 17:25 Urine Color Yellow (YELLOW) 08/10/18 17:25 Urine Appearance Clear (CLEAR) 08/10/18 17:25 Urine pH 6.0 (5.0 - 8.0) 08/10/18 17:25 Ur Specific [place] 1.015 (1.000-1.030) 08/10/18 17:25 Urine Protein Negative (NEGATIVE) 08/10/18 17:25 Urine Glucose (UA) 4+ (NEGATIVE) 08/10/18 17:25 Urine Ketones Negative (NEGATIVE) 08/10/18 17:25 Urine Occult Blood 1+ (NEGATIVE) 08/10/18 17:25 Urine Nitrite Negative (NEGATIVE) 08/10/18 17:25 Urine Bilirubin Negative (NEGATIVE) 08/10/18 17:25 Urine Urobilinogen Normal (NORMAL) 08/10/18 17:25 Ur Leukocyte Esterase 1+ (NEGATIVE) 08/10/18 17:25 Urine RBC 3-5 /HPF (NONE SEEN) 08/10/18 17:25 Urine WBC 3-5 /HPF (NONE SEEN) 08/10/18 17:25 Ur Squamous Epith Cells Moderate /HPF (NEGATIVE) 08/10/18 17:25 Urine Bacteria Trace /HPF (NEGATIVE) 08/10/18 17:25 Urine Yeast Rare /HPF (NEGATIVE) 08/10/18 17:25 Ur Culture Indicated? No/not indicated 08/10/18 17:25 - Plan (1) Acute hyponatremia Status: Acute Plan: GENTLE HYDRATION. STRICT I & OS, VERIFY HOME MEDS. BP CONTROL, BLOOD SUGAR CONTROL. UA ON ADMISSION, CBC CMP Q AM. AMMONIA LEVELS, ACETONE TODAY. RESP THERAPY PRN (2) Generalized weakness Status: Acute (3) Thrombocytopenia Status: Acute (4) Dizziness Status: Acute (5) CHF (congestive heart failure) Status: Acute Plan: COREG 3.125 BID, BP CONTROL (6) Cirrhosis of liver Status: Acute (7) Ascites Status: Acute Qualifiers: Ascites type: malignant Qualified Code(s): R18.0 - Malignant ascites (8) Acute hyperglycemia Status: Acute (9) Cholelithiasis Status: Acute Qualifiers: Cholelithiasis location: gallbladder Cholecystitis presence: without cholecystitis Biliary obstruction: with biliary obstruction Qualified Code(s): K80.21 - Calculus of gallbladder without cholecystitis with obstruction
[2018-08-12] MEDS: MICRO K EXTEN CAP 10 MEQ PO SCH (16:24)
[2018-08-12] MEDS: NAMENDA TAB 10 MG PO SCH (21:56)
[2018-08-12] MEDS: SNACK - Diabetic Appropriate PO SCH (21:57)
[2018-08-13] MEDS: NS 1000 ML 1,000 ML IV SCH ×4 (05:10→20:49)
[2018-08-13 05:24] LABS: ALANINE AMINOTRANSFERASE 64 Units/L (12-78); ALBUMIN 1.3 g/dL (3.4-5.0); ALKALINE PHOSPHATASE 348 Units/L (46-116); ASPARTATE AMINO TRANSFERASE 76 Units/L (15-37); BLOOD UREA NITROGEN 18 mg/dL (7-18); CALCIUM 7.7 mg/dL (8.5-10.1); CARBON DIOXIDE 22.7 mmol/L (21-32); CHLORIDE 100 mmol/L (98-107); COR CA(FOR HYPOALB) 9.9 mg/dL (8.5-10.1); COR NA(FOR HYPERGLY) 135 mmol/L (136-145); CREATININE 0.92 mg/dL (0.55-1.02); SODIUM 129 mmol/L (136-145); TOTAL PROTEIN 4.9 g/dL (6.4-8.2); eGFR NON BLACK RACES > 60 (>60)
[2018-08-13 05:31] LABS: BASOPHILS % (AUTO) 0.3 % (0.2-1.0); EOSINOPHILS % (AUTO) 1.3 % (0.9-2.9); HEMOGLOBIN 10.9 g/dL (12.0-16.0); LYMPHOCYTES # (AUTO) 0.5 X10^3/uL (1.3-2.9); LYMPHOCYTES % (AUTO) 15.6 % (21.0-51.0); MEAN CORPUSCULAR HGB CONC 33.9 g/dL (33.0-35.0); MEAN CORPUSCULAR VOLUME 94.4 fL (80.0-100.0); MEAN PLATELET VOLUME 7.3 fL (7.4-11.0); MONOCYTES # (AUTO) 0.3 x10^3/uL (0.3-0.8); MONOCYTES % (AUTO) 10.1 % (0.0-13.0); NEUTROPHILS # (AUTO) 2.2 x10^3/uL (2.2-4.8); NEUTROPHILS % (AUTO) 72.7 % (42.0-75.0); PLATELET COUNT 79 X10^3/uL (150.0-450.0); RED BLOOD COUNT 3.39 X10^6/uL (3.5-5.4); RED CELL DISTRIBUTION WIDTH 16.2 % (11.6-16.5)
[2018-08-13] MEDS: HumuLIN R SC PRN ×4 (05:43→22:46)
[2018-08-13 07:15] VITALS: BMI 26.4
[2018-08-13] MEDS: MICRO K EXTEN CAP 10 MEQ PO SCH (08:49)
[2018-08-13] MEDS: ASPIRIN 81 MG CHEWTAB PO SCH (08:50)
[2018-08-13] MEDS: CELEXA PO SCH (08:50)
[2018-08-13] MEDS: ALDACTONE TAB 25 MG PO SCH ×2 (08:50→22:27)
[2018-08-13] MEDS: PROTONIX TAB 40 MG PO SCH (08:50)
[2018-08-13] MEDS: LASIX PO SCH (08:50)
[2018-08-13] MEDS: COREG TAB 6.25 MG PO SCH (08:50)
[2018-08-13] MEDS: PLAVIX PO SCH (08:51)
[2018-08-13] MEDS: HumuLIN 70/30 (NovoLIN 70/30) SC SCH ×2 (08:51→20:50)
[2018-08-13] MEDS: SNACK - Diabetic Appropriate PO SCH (20:00)
[2018-08-13] MEDS: NAMENDA TAB 10 MG PO SCH (22:28)
[2018-08-13] MEDS: LOPRESSOR TAB 25 MG PO SCH (22:28)
[2018-08-14] MEDS: ZOFRAN INJ 4 MG VIAL IVP PRN ×2 (04:51→21:04)
[2018-08-14 05:28] LABS: BASOPHILS % (AUTO) 0.4 % (0.2-1.0); EOSINOPHILS # (AUTO) 0.1 x10^3/uL (0.0-0.2); EOSINOPHILS % (AUTO) 1.3 % (0.9-2.9); HEMATOCRIT 34.9 % (36.0-47.0); HEMOGLOBIN 11.8 g/dL (12.0-16.0); LYMPHOCYTES # (AUTO) 0.5 X10^3/uL (1.3-2.9); LYMPHOCYTES % (AUTO) 12.4 % (21.0-51.0); MEAN CORPUSCULAR HEMOGLOBIN 31.5 pg (27.0-34.0); MEAN CORPUSCULAR HGB CONC 33.9 g/dL (33.0-35.0); MEAN PLATELET VOLUME 7.6 fL (7.4-11.0); MONOCYTES # (AUTO) 0.4 x10^3/uL (0.3-0.8); MONOCYTES % (AUTO) 9.3 % (0.0-13.0); NEUTROPHILS # (AUTO) 3.2 x10^3/uL (2.2-4.8); NEUTROPHILS % (AUTO) 76.6 % (42.0-75.0); PLATELET COUNT 104 X10^3/uL (150.0-450.0); RED BLOOD COUNT 3.76 X10^6/uL (3.5-5.4); RED CELL DISTRIBUTION WIDTH 16.4 % (11.6-16.5); WHITE BLOOD COUNT 4.1 X10^3/uL (3.6-10.0)
[2018-08-14] MEDS: HumuLIN R SC PRN ×4 (05:39→21:26)
[2018-08-14 05:42] LABS: ALANINE AMINOTRANSFERASE 65 Units/L (12-78); ALBUMIN 1.5 g/dL (3.4-5.0); ALKALINE PHOSPHATASE 399 Units/L (46-116); ASPARTATE AMINO TRANSFERASE 62 Units/L (15-37); BLOOD UREA NITROGEN 18 mg/dL (7-18); CALCIUM 7.9 mg/dL (8.5-10.1); CARBON DIOXIDE 21.7 mmol/L (21-32); CHLORIDE 101 mmol/L (98-107); COR CA(FOR HYPOALB) 9.9 mg/dL (8.5-10.1); COR NA(FOR HYPERGLY) 134 mmol/L (136-145); CREATININE 0.81 mg/dL (0.55-1.02); SODIUM 130 mmol/L (136-145); TOTAL PROTEIN 5.6 g/dL (6.4-8.2); eGFR NON BLACK RACES > 60 (>60)
[2018-08-14] MEDS: NS 1000 ML 1,000 ML IV SCH ×2 (05:47→22:24)
[2018-08-14] MEDS: PROTONIX TAB 40 MG PO SCH (08:43)
[2018-08-14] MEDS: MICRO K EXTEN CAP 10 MEQ PO SCH (08:44)
[2018-08-14] MEDS: PLAVIX PO SCH (08:44)
[2018-08-14] MEDS: ALDACTONE TAB 25 MG PO SCH ×2 (08:45→22:25)
[2018-08-14] MEDS: ASPIRIN 81 MG CHEWTAB PO SCH (08:45)
[2018-08-14] MEDS: CELEXA PO SCH (08:46)
[2018-08-14] MEDS: LASIX PO SCH (08:46)
[2018-08-14] MEDS: LOPRESSOR TAB 25 MG PO SCH ×2 (08:47→22:25)
[2018-08-14] MEDS: HumuLIN 70/30 (NovoLIN 70/30) SC SCH ×2 (10:01→20:53)
[2018-08-14] MEDS: SNACK - Diabetic Appropriate PO SCH (20:15)
[2018-08-14] MEDS: NAMENDA TAB 10 MG PO SCH (22:25)
[2018-08-15 05:22] LABS: BASOPHILS % (AUTO) 0.4 % (0.2-1.0); EOSINOPHILS % (AUTO) 0.9 % (0.9-2.9); HEMATOCRIT 32.6 % (36.0-47.0); HEMOGLOBIN 11.1 g/dL (12.0-16.0); LYMPHOCYTES # (AUTO) 0.5 X10^3/uL (1.3-2.9); LYMPHOCYTES % (AUTO) 14.9 % (21.0-51.0); MEAN CORPUSCULAR HEMOGLOBIN 31.5 pg (27.0-34.0); MEAN CORPUSCULAR VOLUME 92.6 fL (80.0-100.0); MEAN PLATELET VOLUME 7.3 fL (7.4-11.0); MONOCYTES # (AUTO) 0.4 x10^3/uL (0.3-0.8); MONOCYTES % (AUTO) 11.4 % (0.0-13.0); NEUTROPHILS # (AUTO) 2.6 x10^3/uL (2.2-4.8); NEUTROPHILS % (AUTO) 72.4 % (42.0-75.0); PLATELET COUNT 94 X10^3/uL (150.0-450.0); RED BLOOD COUNT 3.52 X10^6/uL (3.5-5.4); RED CELL DISTRIBUTION WIDTH 16.2 % (11.6-16.5); WHITE BLOOD COUNT 3.7 X10^3/uL (3.6-10.0)
[2018-08-15 05:33] LABS: ALANINE AMINOTRANSFERASE 52 Units/L (12-78); ALBUMIN 1.3 g/dL (3.4-5.0); ALKALINE PHOSPHATASE 351 Units/L (46-116); ASPARTATE AMINO TRANSFERASE 46 Units/L (15-37); BLOOD UREA NITROGEN 16 mg/dL (7-18); CALCIUM 7.8 mg/dL (8.5-10.1); CHLORIDE 101 mmol/L (98-107); COR NA(FOR HYPERGLY) 133 mmol/L (136-145); CREATININE 0.79 mg/dL (0.55-1.02); SODIUM 130 mmol/L (136-145); TOTAL PROTEIN 5.4 g/dL (6.4-8.2); eGFR NON BLACK RACES > 60 (>60)
[2018-08-15] MEDS: HumuLIN R SC PRN (05:41)
[2018-08-15] MEDS: NS 1000 ML 1,000 ML IV SCH (07:08)
[2018-08-15] MEDS: LASIX PO SCH (09:21)
[2018-08-15] MEDS: CELEXA PO SCH (09:21)
[2018-08-15] MEDS: MICRO K EXTEN CAP 10 MEQ PO SCH (09:22)
[2018-08-15] MEDS: ALDACTONE TAB 25 MG PO SCH (09:22)
[2018-08-15] MEDS: ASPIRIN 81 MG CHEWTAB PO SCH (09:22)
[2018-08-15] MEDS: LOPRESSOR TAB 25 MG PO SCH (09:22)
[2018-08-15] MEDS: PLAVIX PO SCH (09:26)
[2018-08-15] MEDS: PROTONIX TAB 40 MG PO SCH (09:28)
[2018-08-15] MEDS: HumuLIN 70/30 (NovoLIN 70/30) SC SCH (09:32)
[2018-08-15 10:41] VITALS: BP 140/63
== END 2018-08-15 11:00 | disposition home or self-care (01) | DRG 641 ==
LOC: MED/SURG 10:26 → ER 10:26 → MED/SURG 15:00
PROVIDERS: ADMIT Internal Medicine; ATTEND Internal Medicine
DX: R18.0 Malignant ascites; D69.6 Thrombocytopenia, unspecified; I11.0 Hypertensive heart disease with heart failure; R53.1 Weakness; F41.8 Other specified anxiety disorders; E87.1 Hypo-osmolality and hyponatremia; R06.02 Shortness of breath; K21.9 Gastro-esophageal reflux disease without esophagitis; K74.69 Other cirrhosis of liver; I50.9 Heart failure, unspecified; R11.2 Nausea with vomiting, unspecified; Z97.8 Presence of other specified devices; E11.65 Type 2 diabetes mellitus with hyperglycemia; K80.21 Calculus of gallbladder without cholecystitis with obstruction; R91.1 Solitary pulmonary nodule; R42 Dizziness and giddiness
CPT/HCPCS: 36415; 71010; 71045; 74022; 80053; 81001; 82009; 82140; 82947; 83735; 85025; 94760; 96365; 96367; 96374; 97110; 97116; 97163; 97166; 97535; 99231; 99283; 99284; A4216; A4222; G0378; J1815; J2405; J7030